=== PATIENT | female | born 1940 | race Caucasian/White ===

== ENCOUNTER 2017-02-04 06:07 | Inpatient (IN) ==
[2017-01-21 10:16] LABS: Basophils % 0.6 % (0.0-0.8); Eosinophils # 0.4 10*3/uL (0.0-0.87); Eosinophils % 5.2 % (0.00-10.9); Hematocrit 32.3 VOL% (35.7-47.0); Hemoglobin 10.7 GM/DL (12.0-16.0); Immature Granulocytes % 1.2 %; Immature Granulocytes Absolute 0.08 #; Lymphocytes # 2.5 10*3/uL (1.4-4.0); Lymphocytes % 36.4 % (21.3-54.2); Mean Corpuscular HGB Conc 33.1 GM/DL (32-36); Mean Corpuscular Hemoglobin 30 PG (27-34); Mean Corpuscular Volume 91.2 FL (87-102); Mean Platelet Volume 9.3 FL (9.6-12.0); Monocytes # 0.4 10*3/uL (0.11-0.8); Monocytes % 6.1 % (1.7-12.7); Neutrophils # 3.4 10*3/uL (1.4-7.4); Neutrophils % 50.5 % (38.7-73.9); Platelet Count 199 T/CUMM (130-400); Red Blood Count 3.54 MC/CUMM (3.8-5.5); Red Cell Distribution Width 14.1 % (9.3-17.3); White Blood Count 6.7 T/CUMM (4-12)
--- NOTE | 2017-01-21 10:27 | EKG Report ---
Stationary ECG Study [facility] Test Date: 01/21/2017 10:27:28 AM Pat Name: RAMESH MARQUES Department: Room: Gender: F [employer]: YOSELIN PETERS : 1940 Requested by: Nikolas Peters Order Number: [id number] Reading MD: JHONY ROBERTSON Intervals [place] Rate: 43 P: 62 PA: 213 QRS: 62 QRSD: 96 T: 61 QT: 524 QTc: 469 Interpretive Statements SINUS BRADYCARDIA WITH SINUS ARRHYTHMIA WITH PROLONGED PA INTERVAL INCOMPLETE RIGHT BUNDLE BRANCH BLOCK Electronically Signed On 01-24-17 18:23:27 CDT by JHONY ROBERTSON [email or web address]
--- NOTE | 2017-01-21 10:29 | XRay Report ---
XR chest 2V Indication: Preop evaluation Comparison: Chest x-ray dated June 06, 2014 Technique: Frontal and lateral views of the chest. Findings: Stable moderate cardiomegaly. Chronic change of the lungs without focal consolidation, pleural effusion, or pneumothorax. Visualized osseous and surrounding soft tissue structures appear grossly unchanged. Surgical clips within right upper quadrant of abdomen. IMPRESSION: Stable moderate cardiomegaly without nilesh pulmonary edema. PROCEDURE INTERPRETED AT [facility] DEPARTMENT OF RADIOLOGY Final Report Signed by: Dr Antoine Carbajal
[2017-01-21 10:50] LABS: Alanine Aminotransferase 16 U/L (13-56); Albumin 3.4 G/DL (3.4-5.0); Alkaline Phosphatase 133 U/L (45-117); Aspartate Amino Transferase 14 U/L (0-37); Bilirubin,Total < 0.39 MG/DL (0.2-1.0); Blood Urea Nitrogen 11 MG/DL (7-18); Calcium 7.9 MG/DL (8.5-10.1); Glucose 83 MG/DL (74-106); Osmolality,Calculated 280.1 MOS/KG (273-304); Potassium 4.1 MMOL/L (3.5-5.1); Sodium 142 MMOL/L (136-145); Total Protein 6.3 G/DL (6.4-8.3)
[~2017-02-04 06:07] MED LIST: SODIUM CHLORIDE 0.9% 100 ML IV ONE; cefOXitin 1,000 MG in SODIUM CHLORIDE 0.9% 100 ML IV ONE
[2017-02-04] MEDS ORDERED: BUPIVACAINE 0.25% 50 ML VIAL ONE (06:13)
[2017-02-04] MEDS ORDERED: LIDOCAINE 1%/EPI INJ 20 ML VIAL ONE (06:13)
[2017-02-04] MEDS ORDERED: SCOPOLAMINE 1.5 MG PATCH TRANSDERM ONE ×2 (06:56→06:58)
[2017-02-04] MEDS ORDERED: ALBUTEROL 1.25 MG/3 ML NEB RESP TX ONE (06:58)
[2017-02-04] MEDS ORDERED: LACTATED RINGERS 1,000 ML IV SCH (07:00)
[2017-02-04] MEDS ORDERED: LIDOCAINE 1% 5 ML VIAL ONE (07:14)
[2017-02-04] MEDS ORDERED: HYDROCORTISONE 100 MG VIAL ONE (07:14)
[2017-02-04] MEDS ORDERED: ONDANSETRON 4 MG/2 ML VIAL ONE (07:14)
[2017-02-04] MEDS ORDERED: GLYCOPYRROLATE 0.4 MG/2 ML VIAL ONE (07:14)
[2017-02-04] MEDS ORDERED: ALBUMIN 5% 12.5 GM/250 ML VIAL IV ONE ×2 (07:14→11:14)
[2017-02-04] MEDS ORDERED: ETOMIDATE 20 MG/10 ML VIAL IV ONE (07:14)
[2017-02-04] MEDS ORDERED: PROPOFOL 200 MG/20 ML VIAL IV ONE (07:14)
[2017-02-04] MEDS ORDERED: NEOSTIGMINE 10 MG/10 ML VIAL ONE (07:14)
[2017-02-04] MEDS ORDERED: ROCURONIUM 100 MG/10 ML VIAL IV ONE (07:14)
[2017-02-04] MEDS ORDERED: hydrALAZINE 20 MG/1 ML VIAL ONE (07:14)
--- NOTE | 2017-02-04 11:02 | Operative Note ---
Date of procedure: 02/04/17 Pre-op diagnosis: Colon cancer ascending colon Post-op diagnosis: same Procedure: Right hemicolectomy with stapled ileocolic anastomosis and extensive lysis of intra-abdominal adhesions (22) Findings and technique: After informed consent was obtained patient was brought the operating room and placed in supine position. After successful induction with general anesthesia the patient's abdomen was prepped and draped in usual sterile fashion. Local anesthesia was infiltrated in her old midline scar at about where I felt the umbilicus would have been located in this patient who no longer had an umbilicus from her multiple anterior abdominal wall scars. Sharp dissection was carried down to the midline fascia where multiple fascial benja were removed and the peritoneal cavity entered under direct vision. There was essentially no free peritoneal space at all. She had a frozen abdomen. This made it clear that a laparoscopic approach would not be feasible. I dissected in the mid abdomen and located transverse colon which was identifiable right at the level of the mid abdomen where I felt was was probably the site of her old umbilicus. This was densely adherent to what omentum she had remaining and also to multiple loops of small bowel. I traced the transverse colon to the right and this ascended up to the liver and went up over the anterior surface of the liver below the diaphragm. This was dissected off of the anterior aspect of the liver and beneath the right lobe of the liver with the patient had a previous cholecystectomy. I then dissected at the hepatic flexure inferiorly. At this point I could see where Maryjane ink had been injected by gastroenterology during her colonoscopy. Thickened portion of colon was noted adjacent to this however I saw no evidence of perforation or mass-effect or invasive cancer through the wall of the bowel. I dissected the right colon free from the retroperitoneum with an abdominal wall identifying the duodenum and also identifying the right ureter and tracing this out and avoiding the right ureter and gonadal vessels. As I dissected down to the cecum the cecum was down in the pelvis and I then identified the terminal ileum which was densely adherent and traveled down deep into the pelvis. Extensive dissection was carried out to free up terminal ileum that I divided near the cecum and also I dissected the colonic mesentery free back close to its origin at the right colic artery and also the middle colic vessels. All along the colonic mesentery were dense adhesions to adjacent small bowel. This was completely freed up and I placed clamps across the right colic and middle colic vessels preserving some of the middle colic branches at the mid transverse colon. I then used ICG injection with the pinpoint device to evaluate the perfusion of the bowel. The colon was then resected between GI stapling devices. I then looked again with a new injection of ICG and felt that the distal few centimeters of terminal ileum were not perfused enough. We also had a situation where without further dissection we would have it tension on her anastomosis. I then spent probably another hour dissecting small bowel 3 out of the pelvis to mobilize the terminal ileum so that I could do a tension-free anastomosis. 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 Great care was taken and I had to dissected millimeter the time taking great care not to injure bowel or cause bleeding from the mesentery. With the bowel freed up I then did a stapled ileocolic anastomosis and then close the openings in the ends of the bowel with a TA stapling device. The staple lines were reinforced with several interrupted silk Lembert sutures to make sure that we took any tension off the staple line especially at the end of the anastomosis. Staple lines were then coated with Tisseel tissue sealant. The mesenteric defect was closed interrupted 3-0 silk sutures. The abdomen was irrigated liberally and suctioned dry. No bleeding was noted. The midline fascia was then closed with a running #1 PDS suture and sponge and instrument counts were correct at the time of closure. Subcutaneous layer was irrigated and the skin closed with skin clips. She appeared to tolerate the procedure well and this was a much more difficult procedure than usual because of her essentially frozen abdomen. This greatly added to the complexity and difficulty the case and probably tripled the usual expected operative time. Anesthesia: ESTELAA, local Surgeon / Physician: Nikolas Meeks III. Estimated blood loss: other (75 mL) Specimens: other (Right colon) Condition: stable Disposition: PACU Results - Labs CBC & BMP: 01/21/17 10:10 01/21/17 10:10 Discharge Plan - Discharge Medications No Action Acetamin/Codeine 300-30 Tab [Tylenol/Codeine #3] 1 tablet PO Q8HR PRN PRN Reason: Pain Clorazepate Dipotassium 7.5 mg PO TID Atorvastatin [Lipitor] 40 mg PO DAILY Levothyroxine Tab [Synthroid Tab] 50 mcg PO DAILY Citalopram [CeleXA] 40 mg PO DAILY Bisoprolol/Hctz 2.5-6.25 [Ziac 2.5-6.25] 1 tablet PO DAILY Promethazine Tab [Phenergan Tab] 25 mg PO Q6H PRN PRN Reason: Nausea Omeprazole 20 mg PO DAILY Oxybutynin [Ditropan] 5 mg PO BID - Follow Up or Referral - Forms/Instructions
[2017-02-04 11:13] LABS: Apearance,Urine CLEAR (Clear); Bilirubin,Urine Negative (Negative); Blood, Urine Negative (Negative); Glucose,Urine (UA) Negative (Negative); Ketones,Urine Negative (Negative); Mucus,Urine Occasional /LPF (Occasional); Nitrite,Urine Negative (Negative); Protein,Urine Negative; RBC,Urine <1 /HPF (0-4); Urine Color Yellow (Yellow); Urine Specific Gravity 1.017 (1.001-1.035); Urine Urobilinogen < 2.0 EU/DL (0.2-1.0); WBC,Urine <1 /HPF (0-6)
[2017-02-04] MEDS ORDERED: MIDAZOLAM 2 MG/2 ML VIAL ONE (11:14)
[2017-02-04] MEDS ORDERED: DESFLURANE 1 UNIT/15 MINUTE INH ONE (11:14)
[2017-02-04] MEDS ORDERED: LACTATED RINGERS 1,000 ML IV ONE (11:15)
[2017-02-04] MEDS ORDERED: SUFentanil 50 MCG/ML AMP ONE (11:15)
[2017-02-04] MEDS ORDERED: ACETAMINOPHEN 1,000 MG/100 ML VIAL IV ONE (11:15)
[2017-02-04] MEDS ORDERED: ONDANSETRON 4 MG/2 ML VIAL IV PRN ×2 (11:51→11:56)
[2017-02-04] MEDS ORDERED: HYDROmorphone 2 MG/1 ML VIAL IV PRN ×2 (11:51→11:56)
[2017-02-04] MEDS: DEXTROSE 5% LACTATED RINGERS 1,000 ML IV SCH ×2 (12:37→22:55)
[2017-02-04 12:50] LABS: Hematocrit 31.8 VOL% (35.7-47.0); Hemoglobin 10.2 GM/DL (12.0-16.0)
--- NOTE | 2017-02-04 13:16 | Anesthesia Post-Op ---
Anesthesia Post OP - Post Ansesthetic Evaluation Patient seen in post op: Yes Resp: within normal limits CV: within normal limits Mental: within normal limits Temp: within normal limits Quds-Aq-Uiomlgsam: within normal limits Nausea and Vomiting: within normal limits Pain: within normal limits
[2017-02-04] MEDS: CLORAZEPATE 7.5 MG TABLET PO SCH ×2 (14:29→21:00)
[2017-02-04] MEDS: ONDANSETRON 4 MG/2 ML VIAL IV PRN (14:40)
[2017-02-04] MEDS: HYDROmorphone 2 MG/1 ML VIAL IV PRN ×3 (14:43→20:00)
--- NOTE | 2017-02-04 17:07 | Event Note ---
She has no complaints. Her pain is controlled and she is awake and alert. She appears to be stable at this time. I discussed the operative findings with the patient and her daughter.
[2017-02-04 19:19] LABS: Hematocrit 32.1 VOL% (35.7-47.0); Hemoglobin 10.6 GM/DL (12.0-16.0)
[2017-02-04] MEDS: ACETAMINOPHEN 325 MG TABLET PO PRN (20:59)
[2017-02-04] MEDS: OXYBUTYNIN 5 MG TABLET PO SCH (21:00)
[2017-02-05] MEDS: ACETAMINOPHEN 325 MG TABLET PO PRN (00:33)
[2017-02-05] MEDS: ONDANSETRON 4 MG/2 ML VIAL IV PRN ×4 (03:08→22:06)
[2017-02-05 03:23] LABS: Basophils % 0.2 % (0.0-0.8); Hematocrit 31.4 VOL% (35.7-47.0); Hemoglobin 10.2 GM/DL (12.0-16.0); Immature Granulocytes % 0.4 %; Immature Granulocytes Absolute 0.04 #; Lymphocytes # 1.8 10*3/uL (1.4-4.0); Lymphocytes % 16.5 % (21.3-54.2); Mean Corpuscular HGB Conc 32.5 GM/DL (32-36); Mean Corpuscular Hemoglobin 30 PG (27-34); Mean Corpuscular Volume 91.3 FL (87-102); Mean Platelet Volume 9.9 FL (9.6-12.0); Monocytes # 0.7 10*3/uL (0.11-0.8); Monocytes % 6.4 % (1.7-12.7); Neutrophils # 8.2 10*3/uL (1.4-7.4); Neutrophils % 76.5 % (38.7-73.9); Platelet Count 198 T/CUMM (130-400); Red Blood Count 3.44 MC/CUMM (3.8-5.5); Red Cell Distribution Width 14.1 % (9.3-17.3); White Blood Count 10.7 T/CUMM (4-12)
[2017-02-05 03:54] LABS: Calcium 7.9 MG/DL (8.5-10.1); Osmolality,Calculated 278.7 MOS/KG (273-304); Potassium 3.8 MMOL/L (3.5-5.1)
[2017-02-05] MEDS: HYDROmorphone 2 MG/1 ML VIAL IV PRN ×5 (04:06→22:09)
[2017-02-05] MEDS: DEXTROSE 5% LACTATED RINGERS 1,000 ML IV SCH ×2 (07:30→16:55)
--- NOTE | 2017-02-05 07:33 | Event Note ---
She feels well. She had low-grade fever which is probably from atelectasis. Her hematocrit is stable and her abdomen is benign. She has good urine output. We can get her Doyle out today and get her up ambulating more.
[2017-02-05] MEDS: OXYBUTYNIN 5 MG TABLET PO SCH ×2 (08:45→20:46)
[2017-02-05] MEDS: ENOXAPARIN 30 MG/0.3 ML SYRINGE SUBCUT SCH (08:45)
[2017-02-05] MEDS: CLORAZEPATE 7.5 MG TABLET PO SCH ×3 (08:45→20:46)
[2017-02-05] MEDS: LEVOTHYROXINE 50 MCG TABLET PO SCH (08:45)
[2017-02-05] MEDS: PANTOPRAZOLE 40 MG TABLET PO SCH (08:45)
[2017-02-05] MEDS: BISOPROLOL/HCTZ 2.5-6.25 MG TABLET PO SCH (11:15)
[2017-02-05] MEDS ORDERED: hydrOXYzine HCL 25 MG TABLET PO PRN (14:07)
[2017-02-05] MEDS ORDERED: ALBUTEROL 2.5 MG/3 ML NEB RESP TX PRN (14:07)
[2017-02-05] MEDS: CITALOPRAM 40 MG TABLET PO SCH (15:47)
[2017-02-05] MEDS: ATORVASTATIN 40 MG TABLET PO SCH (15:47)
[2017-02-05] MEDS: FLUTICASONE 50 MCG NASAL SPRAY 16 GM BOTTLE BOTH NARES SCH (15:48)
[2017-02-05] MEDS: TEMAZEPAM 15 MG CAPSULE PO PRN (20:46)
[2017-02-06] MEDS: DEXTROSE 5% LACTATED RINGERS 1,000 ML IV SCH ×2 (03:46→14:59)
[2017-02-06] MEDS: ACETAMINOPHEN 325 MG TABLET PO PRN ×2 (04:52→17:58)
[2017-02-06] MEDS: OXYBUTYNIN 5 MG TABLET PO SCH ×2 (08:13→20:53)
[2017-02-06] MEDS: LEVOTHYROXINE 50 MCG TABLET PO SCH (08:13)
[2017-02-06] MEDS: PANTOPRAZOLE 40 MG TABLET PO SCH (08:13)
[2017-02-06] MEDS: CITALOPRAM 40 MG TABLET PO SCH (08:13)
[2017-02-06] MEDS: CLORAZEPATE 7.5 MG TABLET PO SCH ×3 (08:13→20:53)
[2017-02-06] MEDS: ATORVASTATIN 40 MG TABLET PO SCH (08:13)
[2017-02-06] MEDS: BISOPROLOL/HCTZ 2.5-6.25 MG TABLET PO SCH (08:13)
[2017-02-06] MEDS: FLUTICASONE 50 MCG NASAL SPRAY 16 GM BOTTLE BOTH NARES SCH (08:16)
[2017-02-06] MEDS: ENOXAPARIN 30 MG/0.3 ML SYRINGE SUBCUT SCH (08:16)
--- NOTE | 2017-02-06 10:33 | Event Note ---
She has some low-grade temperature which I suspect is atelectasis. Her abdomen appears benign. Her vital signs are stable. She is awake and alert. We will get her Doyle catheter out and give her up more. She has not had return of bowel function. I am going to check follow-up lab work.
[2017-02-06 11:14] LABS: Basophils % 0.3 % (0.0-0.8); Eosinophils % 0.2 % (0.00-10.9); Hemoglobin 9.8 GM/DL (12.0-16.0); Immature Granulocytes % 0.7 %; Immature Granulocytes Absolute 0.08 #; Lymphocytes # 1.4 10*3/uL (1.4-4.0); Lymphocytes % 12.3 % (21.3-54.2); Mean Corpuscular HGB Conc 32.7 GM/DL (32-36); Mean Corpuscular Hemoglobin 30 PG (27-34); Mean Corpuscular Volume 90.6 FL (87-102); Monocytes # 0.7 10*3/uL (0.11-0.8); Monocytes % 6.2 % (1.7-12.7); Neutrophils % 80.3 % (38.7-73.9); Platelet Count 199 T/CUMM (130-400); Red Blood Count 3.31 MC/CUMM (3.8-5.5); Red Cell Distribution Width 13.5 % (9.3-17.3); White Blood Count 11.3 T/CUMM (4-12)
[2017-02-06 11:42] LABS: Calcium 8.5 MG/DL (8.5-10.1); Magnesium 1.8 MG/DL (1.8-2.4); Osmolality,Calculated 274.7 MOS/KG (273-304); Potassium 3.4 MMOL/L (3.5-5.1)
[2017-02-06] MEDS: ONDANSETRON 4 MG/2 ML VIAL IV PRN (13:24)
[2017-02-06] MEDS: HYDROmorphone 2 MG/1 ML VIAL IV PRN (13:24)
[2017-02-06] MEDS: TEMAZEPAM 15 MG CAPSULE PO PRN (20:53)
[2017-02-07] MEDS: DEXTROSE 5% LACTATED RINGERS 1,000 ML IV SCH ×3 (00:25→22:49)
[2017-02-07] MEDS: ONDANSETRON 4 MG/2 ML VIAL IV PRN ×3 (00:26→21:47)
[2017-02-07] MEDS: HYDROmorphone 2 MG/1 ML VIAL IV PRN ×3 (00:33→08:56)
[2017-02-07] MEDS: POTASSIUM CHLORIDE RIDER 10 MEQ in PREMIX 1 EACH IV PRN ×3 (04:13→06:13)
[2017-02-07] MEDS: CLORAZEPATE 7.5 MG TABLET PO SCH ×3 (08:20→21:48)
[2017-02-07] MEDS: LEVOTHYROXINE 50 MCG TABLET PO SCH (08:20)
[2017-02-07] MEDS: ATORVASTATIN 40 MG TABLET PO SCH (08:21)
[2017-02-07] MEDS: CITALOPRAM 40 MG TABLET PO SCH (08:21)
[2017-02-07] MEDS: BISOPROLOL/HCTZ 2.5-6.25 MG TABLET PO SCH (08:21)
[2017-02-07] MEDS: PANTOPRAZOLE 40 MG TABLET PO SCH (08:23)
[2017-02-07] MEDS: OXYBUTYNIN 5 MG TABLET PO SCH ×2 (08:25→21:48)
[2017-02-07] MEDS: ENOXAPARIN 30 MG/0.3 ML SYRINGE SUBCUT SCH (08:27)
[2017-02-07] MEDS: FLUTICASONE 50 MCG NASAL SPRAY 16 GM BOTTLE BOTH NARES SCH (08:43)
[2017-02-07] MEDS ORDERED: MINERAL OIL ENEMA 133 ML BOTTLE RECTAL ONE (09:27)
[2017-02-07] MEDS ORDERED: MAGNESIUM HYDROXIDE SUSP 30 ML UDCUP PO ONE (09:27)
--- NOTE | 2017-02-07 09:27 | Event Note ---
She feels well. She has minimal abdominal pain. She is not having bloating. She has not had a bowel movement or flatus. I anticipate a prolonged ileus in her case because of her previous chronic constipation. She had a large stool filled colon at the time of surgery.
[2017-02-07] MEDS: ACETAMINOPHEN 325 MG TABLET PO PRN (15:30)
[2017-02-07] MEDS: TEMAZEPAM 15 MG CAPSULE PO PRN (21:48)
[2017-02-08] MEDS: ONDANSETRON 4 MG/2 ML VIAL IV PRN ×2 (06:30→13:30)
--- NOTE | 2017-02-08 07:17 | Event Note ---
She had nausea and vomiting last night and also has had increased confusion. She has had small bowel movement. She is awake and alert this morning with stable vital signs. She did have some low-grade temperature. We will check a urinalysis. We will recheck lab work. She continue his nausea and vomiting we will place a nasogastric tube. Her abdomen exam is not impressive. Her wound looks good with no signs of infection. She probably has some prolonged postoperative ileus.
[2017-02-08 07:38] LABS: Basophils % 0.5 % (0.0-0.8); Eosinophils # 0.1 10*3/uL (0.0-0.87); Eosinophils % 1.2 % (0.00-10.9); Hematocrit 27.8 VOL% (35.7-47.0); Hemoglobin 9.3 GM/DL (12.0-16.0); Immature Granulocytes % 1.3 %; Lymphocytes # 1.4 10*3/uL (1.4-4.0); Lymphocytes % 18.5 % (21.3-54.2); Mean Corpuscular HGB Conc 33.5 GM/DL (32-36); Mean Corpuscular Hemoglobin 30 PG (27-34); Mean Corpuscular Volume 89.4 FL (87-102); Mean Platelet Volume 9.5 FL (9.6-12.0); Monocytes # 0.5 10*3/uL (0.11-0.8); Monocytes % 6.8 % (1.7-12.7); Neutrophils # 5.5 10*3/uL (1.4-7.4); Neutrophils % 71.7 % (38.7-73.9); Platelet Count 238 T/CUMM (130-400); Red Blood Count 3.11 MC/CUMM (3.8-5.5); Red Cell Distribution Width 13.2 % (9.3-17.3); White Blood Count 7.6 T/CUMM (4-12)
[2017-02-08] MEDS: ATORVASTATIN 40 MG TABLET PO SCH (08:05)
[2017-02-08] MEDS: OXYBUTYNIN 5 MG TABLET PO SCH ×2 (08:05→20:49)
[2017-02-08] MEDS: CLORAZEPATE 7.5 MG TABLET PO SCH ×3 (08:05→20:48)
[2017-02-08] MEDS: PANTOPRAZOLE 40 MG TABLET PO SCH (08:05)
[2017-02-08] MEDS: BISOPROLOL/HCTZ 2.5-6.25 MG TABLET PO SCH (08:05)
[2017-02-08] MEDS: CITALOPRAM 40 MG TABLET PO SCH (08:05)
[2017-02-08] MEDS: LEVOTHYROXINE 50 MCG TABLET PO SCH (08:05)
[2017-02-08] MEDS: FLUTICASONE 50 MCG NASAL SPRAY 16 GM BOTTLE BOTH NARES SCH (08:06)
[2017-02-08] MEDS: ENOXAPARIN 40 MG/0.4 ML SYRINGE SUBCUT SCH (08:08)
[2017-02-08 08:14] LABS: Calcium 8.2 MG/DL (8.5-10.1); Magnesium 2.4 MG/DL (1.8-2.4); Osmolality,Calculated 273.7 MOS/KG (273-304); Potassium 3.8 MMOL/L (3.5-5.1)
[2017-02-08] MEDS: HYDROmorphone 2 MG/1 ML VIAL IV PRN (09:32)
[2017-02-08 11:12] LABS: Apearance,Urine CLEAR (Clear); Bilirubin,Urine Negative (Negative); Blood, Urine Negative (Negative); Glucose,Urine (UA) Negative (Negative); Ketones,Urine Negative (Negative); Mucus,Urine Occasional /LPF (Occasional); Nitrite,Urine Negative (Negative); Protein,Urine Negative; Urine Color Straw (Yellow); Urine Specific Gravity 1.005 (1.001-1.035); Urine Urobilinogen < 2.0 EU/DL (0.2-1.0); WBC,Urine <1 /HPF (0-6)
[2017-02-08] MEDS ORDERED: ROPIVACAINE 0.5% 30 ML VIAL ONE (13:33)
[2017-02-08] MEDS: DEXTROSE 5% LACTATED RINGERS 1,000 ML IV SCH ×2 (13:38→23:38)
--- NOTE | 2017-02-08 17:16 | Pathology Report from [facility] ---
[facility] [place] : [id number] PATIENT NAME : Namrata Westbrook ORDERING DR : PERLA PETERS III, MD CLINICAL HX: Right colon mass - invasive cancer POST-OP DX: Same SPECIMEN INFO: #1 Right colon #2 Additional ileum GROSS DESCRIPTION: #1 Received fresh labeled with the patients name NAMRATA WESTBROOK and is a right colon measuring 20.0 x 3.5 cm. The terminal ileum measures 2.0 x 1.8 cm. An appendix is not identified. Opening the colon reveals an ulcerating tumor mass measuring 2.0 x 2.2 cm which is situated 7.0 cm from the distal margin, 12.0 cm from the proximal margin. A second ulceration is present measuring 1.0 x 0.6 cm which is situated 4.0 cm distal to the first mass and grossly comes to within 4.3 cm from the distal margin, 18.5 cm from the proximal margin. The larger mass grossly invades the bowel wall, coming to within 3.5 cm of the mesenteric margin. There is also a sessile polypoid mass measuring 2.0 x 1.2 cm which is situated between the two ulcerating masses and grossly comes to within 5.0 cm of the distal margin. Lymph nodes will be submitted following fixation. Sections submitted: 1A proximal margin, 1B distal margin, 1C mesenteric margin, 1D and 1E first larger mass, 1F second smaller ulceration, 1G sessile polypoid mass, H-I lymph nodes.# 2 Received in formalin labeled with the patients name NAMRATA WESTBROOK and #2 consists of a segment of ileum measuring 4.5 x 2.2 cm. No abnormalities grossly appreciated. The surgical margins are submitted in cassettes 2A and 2B. DIAGNOSIS FOR NAMRATA WESTBROOK: #1 COLON, PARTIAL [ILEO]COLECTOMY (Intact, 22.0 x 3.5 cm): TYPE: Invasive adenocarcinoma ( two masses). TUMOR SITE: Ascending colon. TUMOR SIZE: 2.2 x 2.0 cm; adjacent smaller mass/polyp 3 mm. MACROSCOPIC TUMOR PERFORATION: Present. HISTOLOGIC GRADE: Well differentiated. TUMOR EXTENSION: Invade into but not through the muscularic propria (both masses). MARGINS, PROXIMAL: Uninvolved by carcinoma, distance = 12.0 cm. DISTAL: Uninvolved by carcinoma, distance = 4.3 cm. MESENTERIC: Uninvolved by carcinoma, distance = 3.5 cm. LYMPHOVASCULAR INVASION: Not identified. PERINEURAL INVASION: Not identified. TUMOR DEPOSITS: Not identified. TUMOR BUDDING: Low score (0-4). LYMPH NODES: NUMBER EXAMINED: 15; NUMBER INVOLVED: 0 (0/15). ADDITIONAL FINDINGS: Serrated adenoma. AJCC PATHOLOGIC STAGE I (pT2pN0).#2 ADDITIONAL ILEUM: Unremarkable. COLLECTED DATE: 02/04/2017 [facility] REPORT DATE: 02/08/2017 ELECTRONICALLY SIGNED BY: Dave Laboy M.D. 02/08/2017 - 12:47:42 YAMILE
[2017-02-08] MEDS: TEMAZEPAM 15 MG CAPSULE PO PRN (20:48)
[2017-02-09] MEDS: HYDROmorphone 2 MG/1 ML VIAL IV PRN ×3 (01:39→23:50)
[2017-02-09] MEDS: ONDANSETRON 4 MG/2 ML VIAL IV PRN ×2 (06:20→13:09)
[2017-02-09] MEDS ORDERED: MAGNESIUM HYDROXIDE SUSP 30 ML UDCUP PO ONE (08:54)
[2017-02-09] MEDS: CITALOPRAM 40 MG TABLET PO SCH (09:49)
[2017-02-09] MEDS: PANTOPRAZOLE 40 MG TABLET PO SCH (09:49)
[2017-02-09] MEDS: CLORAZEPATE 7.5 MG TABLET PO SCH ×3 (09:49→21:07)
[2017-02-09] MEDS: OXYBUTYNIN 5 MG TABLET PO SCH ×2 (09:49→21:07)
[2017-02-09] MEDS: ENOXAPARIN 40 MG/0.4 ML SYRINGE SUBCUT SCH (09:49)
[2017-02-09] MEDS: ATORVASTATIN 40 MG TABLET PO SCH (09:49)
[2017-02-09] MEDS: LEVOTHYROXINE 50 MCG TABLET PO SCH (09:49)
[2017-02-09] MEDS: BISOPROLOL/HCTZ 2.5-6.25 MG TABLET PO SCH (09:51)
[2017-02-09] MEDS: FLUTICASONE 50 MCG NASAL SPRAY 16 GM BOTTLE BOTH NARES SCH (09:51)
[2017-02-09] MEDS: DEXTROSE 5% LACTATED RINGERS 1,000 ML IV SCH ×2 (10:55→20:55)
--- NOTE | 2017-02-09 12:03 | Event Note ---
She feels better. She is passing some flatus. She is afebrile with stable vital signs and her abdomen appears benign. We will advance her diet to a soft diet today.
[2017-02-09] MEDS: TEMAZEPAM 15 MG CAPSULE PO PRN (21:07)
[2017-02-10] MEDS: HYDROmorphone 2 MG/1 ML VIAL IV PRN ×3 (04:45→20:25)
[2017-02-10] MEDS: ONDANSETRON 4 MG/2 ML VIAL IV PRN ×2 (04:47→20:25)
[2017-02-10] MEDS ORDERED: MINERAL OIL ENEMA 133 ML BOTTLE RECTAL ONE (09:00)
[2017-02-10] MEDS: OXYBUTYNIN 5 MG TABLET PO SCH ×2 (09:50→20:39)
[2017-02-10] MEDS: CITALOPRAM 40 MG TABLET PO SCH (09:51)
[2017-02-10] MEDS: CLORAZEPATE 7.5 MG TABLET PO SCH ×3 (09:51→20:26)
[2017-02-10] MEDS: ATORVASTATIN 40 MG TABLET PO SCH (09:51)
[2017-02-10] MEDS: ACETAMINOPHEN 325 MG TABLET PO PRN ×2 (09:51→20:25)
[2017-02-10] MEDS: LEVOTHYROXINE 50 MCG TABLET PO SCH (09:51)
[2017-02-10] MEDS: PANTOPRAZOLE 40 MG TABLET PO SCH (09:51)
[2017-02-10] MEDS: BISOPROLOL/HCTZ 2.5-6.25 MG TABLET PO SCH (09:51)
[2017-02-10] MEDS: FLUTICASONE 50 MCG NASAL SPRAY 16 GM BOTTLE BOTH NARES SCH (10:16)
[2017-02-10] MEDS: ENOXAPARIN 40 MG/0.4 ML SYRINGE SUBCUT SCH (10:16)
--- NOTE | 2017-02-10 14:30 | Event Note ---
She feels better overall. She is frustrated that she has not had a bowel movement. She had some low-grade temperature. Her vital signs are stable. Her abdomen appears benign. This note is a late entry as I actually saw her this morning. We have ordered some enemas. I am reluctant to give her much from above with her anastomosis. Patient gives a long history of chronic constipation and impactions in the past. Her colon was very large and redundant and full of thick pasty stool throughout. This may make management more difficult as far as getting a return of bowel function.
[2017-02-10] MEDS: DEXTROSE 5% LACTATED RINGERS 1,000 ML IV SCH ×2 (20:46→20:47)
[2017-02-11] MEDS: HYDROmorphone 2 MG/1 ML VIAL IV PRN (04:52)
[2017-02-11] MEDS: ONDANSETRON 4 MG/2 ML VIAL IV PRN ×2 (04:52→21:50)
[2017-02-11] MEDS: DEXTROSE 5% LACTATED RINGERS 1,000 ML IV SCH ×3 (06:09→17:47)
[2017-02-11] MEDS: OXYBUTYNIN 5 MG TABLET PO SCH ×2 (08:50→21:50)
[2017-02-11] MEDS: CITALOPRAM 40 MG TABLET PO SCH (08:50)
[2017-02-11] MEDS: PANTOPRAZOLE 40 MG TABLET PO SCH (08:50)
[2017-02-11] MEDS: LEVOTHYROXINE 50 MCG TABLET PO SCH (08:50)
[2017-02-11] MEDS: BISOPROLOL/HCTZ 2.5-6.25 MG TABLET PO SCH (08:50)
[2017-02-11] MEDS: CLORAZEPATE 7.5 MG TABLET PO SCH ×3 (08:50→21:50)
[2017-02-11] MEDS: FLUTICASONE 50 MCG NASAL SPRAY 16 GM BOTTLE BOTH NARES SCH (08:51)
[2017-02-11] MEDS: ENOXAPARIN 40 MG/0.4 ML SYRINGE SUBCUT SCH (08:51)
[2017-02-11] MEDS: ATORVASTATIN 40 MG TABLET PO SCH (08:51)
--- NOTE | 2017-02-11 10:10 | Event Note ---
She does not feel well. She has not had an appetite. She has not had nausea or vomiting and has passed some flatus but has not had a bowel movement. Her abdomen is nontender and does not really seem distended. It is quiet. She had low-grade fever last night but has normal vital signs. She appears to have persistent postoperative ileus versus obstruction from obstipation in her colon. I have been reluctant to give her much from above. We have tried some milk enemas. Intraoperatively she had a large redundant fluid-filled colon. I will recheck lab and urinalysis and chest x-ray. Nutrition may become an issue in the next few days and we may need to look at TPN.
--- NOTE | 2017-02-11 10:11 | Event Note ---
I was not notified of her fever last night and only saw this this morning on rounds. She is afebrile this morning and not ill-appearing. We will check a chest x-ray as well.
[2017-02-11 11:07] LABS: Basophils % 0.3 % (0.0-0.8); Eosinophils # 0.1 10*3/uL (0.0-0.87); Eosinophils % 0.5 % (0.00-10.9); Hematocrit 30.4 VOL% (35.7-47.0); Hemoglobin 9.8 GM/DL (12.0-16.0); Immature Granulocytes % 1.2 %; Immature Granulocytes Absolute 0.13 #; Lymphocytes % 8.9 % (21.3-54.2); Mean Corpuscular HGB Conc 32.2 GM/DL (32-36); Mean Corpuscular Hemoglobin 29 PG (27-34); Mean Platelet Volume 9.7 FL (9.6-12.0); Monocytes # 0.5 10*3/uL (0.11-0.8); Monocytes % 4.7 % (1.7-12.7); Neutrophils % 84.4 % (38.7-73.9); Platelet Count 276 T/CUMM (130-400); Red Blood Count 3.34 MC/CUMM (3.8-5.5); Red Cell Distribution Width 13.3 % (9.3-17.3); White Blood Count 10.6 T/CUMM (4-12)
[2017-02-11 11:39] LABS: Calcium 8.2 MG/DL (8.5-10.1); Magnesium 2.2 MG/DL (1.8-2.4); Potassium 3.8 MMOL/L (3.5-5.1)
--- NOTE | 2017-02-11 13:14 | XRay Report ---
XR chest 2V Indication: Postop fever. Chest one view: Comparison 01/21/2017. Cardiomegaly is stable. Mediastinal contour remains otherwise unremarkable. Increased diffuse peribronchial thickening is now present, without focal infiltrate. Pleural spaces are clear. Impression: Airways disease such as bronchitis or viral syndrome. Continued cardiomegaly. Given history of postop fever, the appearance of airways disease could indicate mild fluid overload as well. PROCEDURE INTERPRETED AT [facility] DEPARTMENT OF RADIOLOGY Final Report Signed by: Mason Barrett M.D.
[2017-02-11 18:00] LABS: Apearance,Urine CLEAR (Clear); Bilirubin,Urine Negative (Negative); Blood, Urine Negative (Negative); Glucose,Urine (UA) Negative (Negative); Ketones,Urine Negative (Negative); Nitrite,Urine Negative (Negative); Protein,Urine Negative; RBC,Urine <1 /HPF (0-4); Squamous Epithelial Cell,Urine Occasional /HPF (0-10); Urine Color Yellow (Yellow)
[2017-02-11] MEDS: ACETAMINOPHEN 325 MG TABLET PO PRN (19:59)
[2017-02-12] MEDS: ACETAMINOPHEN 325 MG TABLET PO PRN ×3 (01:25→20:31)
[2017-02-12] MEDS: DEXTROSE 5% LACTATED RINGERS 1,000 ML IV SCH ×2 (05:42→18:47)
[2017-02-12 07:36] LABS: Basophils % 0.1 % (0.0-0.8); Hematocrit 26.5 VOL% (35.7-47.0); Hemoglobin 8.8 GM/DL (12.0-16.0); Immature Granulocytes % 0.4 %; Immature Granulocytes Absolute 0.05 #; Lymphocytes # 0.9 10*3/uL (1.4-4.0); Lymphocytes % 7.4 % (21.3-54.2); Mean Corpuscular HGB Conc 33.2 GM/DL (32-36); Mean Corpuscular Hemoglobin 30 PG (27-34); Mean Corpuscular Volume 89.5 FL (87-102); Mean Platelet Volume 9.9 FL (9.6-12.0); Monocytes # 0.6 10*3/uL (0.11-0.8); Monocytes % 4.7 % (1.7-12.7); Neutrophils # 10.7 10*3/uL (1.4-7.4); Neutrophils % 87.4 % (38.7-73.9); Platelet Count 271 T/CUMM (130-400); Red Blood Count 2.96 MC/CUMM (3.8-5.5); Red Cell Distribution Width 13.4 % (9.3-17.3); White Blood Count 12.2 T/CUMM (4-12)
[2017-02-12 07:57] LABS: Band Neutrophils 13 % (0-10); Hypochromasia 1+; Lymphocytes 12 % (20-55); Microcytosis 1+; Ovalocytes Slight; Segmented Neutrophils 74 % (50-85); Total Cells Counted 100
[2017-02-12 07:58] LABS: Platelet Estimate Normal
--- NOTE | 2017-02-12 08:26 | Event Note ---
She is now having bowel movements. She has once again spiked a fever. Her urine is clear. Her chest x-ray does not show an obvious pneumonia. White blood cell count went up some yesterday and I am rechecking this today. I ordered a CT scan of her abdomen and pelvis this morning and this shows a large collection in her right abdomen. It is not been read by radiology. I think this should be amenable to percutaneous drainage. She still has a large stool filled colon.
[2017-02-12] MEDS: cefOXitin 1,000 MG in SODIUM CHLORIDE 0.9% 100 ML IV SCH ×3 (08:57→22:04)
--- NOTE | 2017-02-12 09:01 | IR History and Physical Update ---
IR Pre-Procedure - History and Physical H&P was reviewed, the patient examined and there: are no changes in the patients condition since last H&P was completed. Reason for procedure:: 76-year-old female status post right hemicolectomy, now with a right intra- abdominal abscess. Requires drainage. - Dictation Physical: refer to H&P completed by admitting physician - Physical Exam Vital Signs: Last Vital Signs Temp 97.8 F 02/12/17 07:55 Pulse 62 02/12/17 07:55 Resp 20 02/12/17 07:55 BP 119/54 02/12/17 07:55 Pulse Ox 94 L 02/12/17 07:55 - Sedation IR anesthesia plan for sedation: none ASA Class: III - Risks Risks: Procedures explained. Risks discussed include, but not limited to, the following:[Pain, bleeding] All questions answered. The following alternatives were discussed:[Surgery] Risks and benefits discussed with: other (Daughter) Consent obtained from: other (Daughter) Assessment and Plan - Time spent with patient Time spent with patient: Less than 30 minutes
[2017-02-12] MEDS: ENOXAPARIN 40 MG/0.4 ML SYRINGE SUBCUT SCH (09:47)
--- NOTE | 2017-02-12 10:03 | CT Report ---
CT abdomen pelvis w con Indication: Postop fever. CT ABDOMEN AND PELVIS WITH CONTRAST DLP: 911 mGy*cm. One or more of the following dose reduction techniques was used: Automated exposure control, adjustment of the mA and/or kV according the patient size, or use of iterative reconstruction techniques. Comparison: 01/18/2017 Technique: Axial CT images of the abdomen and pelvis were obtained with IV contrast; Omnipaque 350, 100 cc. Oral contrast was not administered. Abdomen: There is large abscess in the right abdomen measuring 160 x 75 mm axial dimensions. The adjacent colon is fluid-filled with scattered air-fluid levels present. Surgical anastomosis in the right lower quadrant is present, intimate with the lower margin of the abscess collection. Trace amount of ascites is present adjacent to the liver. The liver and spleen are unremarkable. Pancreas, adrenal glands and right kidney remain unremarkable. Left renal cyst is unchanged. Are size remains enlarged. Tiny left pleural effusion is present and there is moderate to severe bibasilar atelectasis. No small bowel dilatation. Calcified atheromatous disease of the aortoiliac system is present without aneurysm. Pelvis: Fluid-filled loops of small bowel are present in the pelvis with multiple air-fluid levels. Uterus is absent. Prior rectal anastomosis demonstrated. Urinary bladder is modestly distended. Impression: Since 01/18/2017, right abdominal abscess is now present following right hemicolectomy. Ileus noted as well. No obstruction. Trace amount of reactive ascites adjacent to the liver. PROCEDURE INTERPRETED AT [facility] DEPARTMENT OF RADIOLOGY Final Report Signed by: Mason Barrett M.D.
[2017-02-12] MEDS: OXYBUTYNIN 5 MG TABLET PO SCH ×2 (10:12→20:34)
[2017-02-12] MEDS: LEVOTHYROXINE 50 MCG TABLET PO SCH (13:21)
[2017-02-12] MEDS: CITALOPRAM 40 MG TABLET PO SCH (13:21)
[2017-02-12] MEDS: FLUTICASONE 50 MCG NASAL SPRAY 16 GM BOTTLE BOTH NARES SCH (13:21)
[2017-02-12] MEDS: ATORVASTATIN 40 MG TABLET PO SCH (13:21)
[2017-02-12] MEDS: PANTOPRAZOLE 40 MG TABLET PO SCH (13:21)
[2017-02-12] MEDS: BISOPROLOL/HCTZ 2.5-6.25 MG TABLET PO SCH (13:21)
--- NOTE | 2017-02-12 14:00 | Post Interventional Procedure ---
Pre-op diagnosis: Right abdominal abscess s/p right hemicolectomy Post-op diagnosis: same Procedure: CT guided placement 10-Fr drain Radiologist: Mason Barrett Anesthesia: local Specimens: other (5 cc brown fluid culture and GS) Estimated blood loss: none Complications: none Condition: stable Assessment and Plan - Time spent with patient Time spent with patient: Less than 30 minutes
--- NOTE | 2017-02-12 15:27 | CT Report ---
CT abscess drainage peritoneal Indication: Right-sided abdominal abscess. CT guided peritoneal abscess drain placement Description: A formal timeout was performed. With the patient supine on the CT table, beadworker imaging of the abdomen was obtained. The right abdominal abscess was identified. The right abdominal skin was prepped and draped in sterile fashion. Under CT guidance, using trocar technique, a 10 Chilean pigtail drainage catheter was advanced directly into the abscess pocket. After removing the trocar, the pigtail was formed. A sample of 5 cc brown fluid was aspirated for culture and Gram stain. The catheter was anchored with a Percu-Stay device and connected to a suction bag. Patient tolerated the procedure well. Impression: Uncomplicated placement of 10 Chilean pigtail drain catheter right abdominal abscess. PROCEDURE INTERPRETED AT [facility] DEPARTMENT OF RADIOLOGY Final Report Signed by: Mason Barrett M.D.
[2017-02-12] MEDS: TEMAZEPAM 15 MG CAPSULE PO PRN (20:30)
[2017-02-13] MEDS: cefOXitin 1,000 MG in SODIUM CHLORIDE 0.9% 100 ML IV SCH ×4 (04:14→21:00)
[2017-02-13] MEDS: DEXTROSE 5% LACTATED RINGERS 1,000 ML IV SCH ×3 (04:14→18:48)
[2017-02-13 06:30] LABS: Calcium 7.9 MG/DL (8.5-10.1); Magnesium 2.2 MG/DL (1.8-2.4); Osmolality,Calculated 275.7 MOS/KG (273-304); Potassium 3.3 MMOL/L (3.5-5.1)
[2017-02-13 08:50] LABS: Basophils % 0.2 % (0.0-0.8); Eosinophils % 0.5 % (0.00-10.9); Hematocrit 26.3 VOL% (35.7-47.0); Hemoglobin 8.3 GM/DL (12.0-16.0); Immature Granulocytes % 0.5 %; Immature Granulocytes Absolute 0.04 #; Lymphocytes % 12.2 % (21.3-54.2); Mean Corpuscular HGB Conc 31.6 GM/DL (32-36); Mean Corpuscular Hemoglobin 29 PG (27-34); Mean Corpuscular Volume 91.3 FL (87-102); Mean Platelet Volume 10.3 FL (9.6-12.0); Monocytes # 0.4 10*3/uL (0.11-0.8); Monocytes % 5.2 % (1.7-12.7); Neutrophils # 6.9 10*3/uL (1.4-7.4); Neutrophils % 81.4 % (38.7-73.9); Platelet Count 274 T/CUMM (130-400); Red Blood Count 2.88 MC/CUMM (3.8-5.5); Red Cell Distribution Width 13.5 % (9.3-17.3); White Blood Count 8.5 T/CUMM (4-12)
[2017-02-13] MEDS: CITALOPRAM 40 MG TABLET PO SCH (08:51)
[2017-02-13] MEDS: LEVOTHYROXINE 50 MCG TABLET PO SCH (08:51)
[2017-02-13] MEDS: OXYBUTYNIN 5 MG TABLET PO SCH ×2 (08:52→20:59)
[2017-02-13] MEDS: PANTOPRAZOLE 40 MG TABLET PO SCH (08:52)
[2017-02-13] MEDS: ATORVASTATIN 40 MG TABLET PO SCH (08:52)
[2017-02-13] MEDS: BISOPROLOL/HCTZ 2.5-6.25 MG TABLET PO SCH (08:52)
[2017-02-13] MEDS: ENOXAPARIN 40 MG/0.4 ML SYRINGE SUBCUT SCH (08:53)
[2017-02-13] MEDS: FLUTICASONE 50 MCG NASAL SPRAY 16 GM BOTTLE BOTH NARES SCH (08:54)
[2017-02-13] MEDS: ACETAMINOPHEN 325 MG TABLET PO PRN ×2 (10:45→16:54)
[2017-02-13 11:40] LABS: Hypochromasia 2+; Microcytosis 2+
[2017-02-13] MEDS: POTASSIUM CHLORIDE RIDER 10 MEQ in PREMIX 1 EACH IV PRN ×4 (16:51→23:30)
[2017-02-13] MEDS: ONDANSETRON 4 MG/2 ML VIAL IV PRN (17:48)
--- NOTE | 2017-02-13 18:06 | Event Note ---
General Surgery Progress Note Chief complaint This patient is a 76-year-old woman who was admitted after laparoscopic converted to open right colectomy on 02/04/2017 for colon cancer complicated by a contained anastomotic leak that was treated with percutaneous drainage on 02/12 Interval history The patient has intermittent fever spikes up to 101.9 last night and 101.3 today. He does not appear septic at all. She feels better today. She is tolerating about 40-50% of her meals. She has not gotten up and walked yet but she would like to try to do that today. Her white blood cell count is normalized. She is not tachycardic. Physical exam The patient is afebrile currently but she does have intermittent fever spikes. Her blood pressure is normal. She is not tachycardic. Chest is clear Heart is regular with no murmurs Abdominal exam reveals no significant tenderness with a clean midline incision. The percutaneous drain in the right upper quadrant has enteric contents coming out of the. It had about 350 cc yesterday and there is probably an additional 200 cc in the bag today. Labs The patient's white blood cell count is normal. The remainder of her labs were reviewed. Her potassium is low but she is on her potassium repletion protocol. Her creatinine did bump up slightly today to 1.2. Imaging CT scan from yesterday and other images all reviewed Assessment and plan Continue antibiotics and percutaneous accordion drain Continue diet as tolerated Check diarrhea for C. difficile Increase activity and walking in the hallway Wean IV fluid
[2017-02-13] MEDS: TEMAZEPAM 15 MG CAPSULE PO PRN (20:59)
[2017-02-14] MEDS: ACETAMINOPHEN 325 MG TABLET PO PRN ×3 (02:58→20:40)
[2017-02-14] MEDS: cefOXitin 1,000 MG in SODIUM CHLORIDE 0.9% 100 ML IV SCH ×4 (03:41→19:48)
[2017-02-14 04:49] LABS: Basophils % 0.2 % (0.0-0.8); Eosinophils % 0.7 % (0.00-10.9); Hematocrit 25.2 VOL% (35.7-47.0); Hemoglobin 7.9 GM/DL (12.0-16.0); Immature Granulocytes % 0.3 %; Immature Granulocytes Absolute 0.02 #; Lymphocytes # 0.6 10*3/uL (1.4-4.0); Lymphocytes % 10.9 % (21.3-54.2); Mean Corpuscular HGB Conc 31.3 GM/DL (32-36); Mean Corpuscular Hemoglobin 29 PG (27-34); Mean Corpuscular Volume 91.3 FL (87-102); Mean Platelet Volume 10.5 FL (9.6-12.0); Monocytes # 0.6 10*3/uL (0.11-0.8); Monocytes % 10.2 % (1.7-12.7); Neutrophils # 4.6 10*3/uL (1.4-7.4); Neutrophils % 77.7 % (38.7-73.9); Platelet Count 293 T/CUMM (130-400); Red Blood Count 2.76 MC/CUMM (3.8-5.5); Red Cell Distribution Width 13.5 % (9.3-17.3); White Blood Count 5.9 T/CUMM (4-12)
[2017-02-14 05:19] LABS: Calcium 7.8 MG/DL (8.5-10.1); Osmolality,Calculated 266.2 MOS/KG (273-304); Potassium 3.8 MMOL/L (3.5-5.1)
[2017-02-14 06:56] LABS: Band Neutrophils 18 % (0-10); Dohle Bodies Few; Hypochromasia 1+; Lymphocytes 8 % (20-55); Platelet Estimate Adequate; Segmented Neutrophils 71 % (50-85); Total Cells Counted 100
[2017-02-14] MEDS: ENOXAPARIN 40 MG/0.4 ML SYRINGE SUBCUT SCH (08:03)
[2017-02-14] MEDS: CITALOPRAM 40 MG TABLET PO SCH (10:32)
[2017-02-14] MEDS: FLUTICASONE 50 MCG NASAL SPRAY 16 GM BOTTLE BOTH NARES SCH (10:32)
[2017-02-14] MEDS: OXYBUTYNIN 5 MG TABLET PO SCH ×2 (10:32→20:40)
[2017-02-14] MEDS: PANTOPRAZOLE 40 MG TABLET PO SCH (10:33)
[2017-02-14] MEDS: BISOPROLOL/HCTZ 2.5-6.25 MG TABLET PO SCH (10:33)
[2017-02-14] MEDS: ATORVASTATIN 40 MG TABLET PO SCH (10:33)
[2017-02-14] MEDS: LEVOTHYROXINE 50 MCG TABLET PO SCH (10:33)
--- NOTE | 2017-02-14 10:48 | Post Interventional Procedure ---
Pre-op diagnosis: S/p colon resection with tube abscess drain partial retracted Post-op diagnosis: same Procedure: CT abscess drainage Radiologist: Reed Ratliff Anesthesia: local Medications: 1% local lidocaine Specimens: none sent Estimated blood loss: none Complications: none Condition: stable Description/Findings: CT guided abscess drain The risk and benefits were explained. The patient's drain was in place and have become partially retracted. CT imaging was performed and the area was cleansed with ChloraPrep. 1% local lidocaine was administered and a guidewire was manipulated into the cavity and 14 Spanish tube was placed into the abdomen with air and stool and debris removed. The findings were discussed with Dr. Bridges. I feel this patient will require repeat operation to seal the anastomotic leak. Assessment and Plan - Time spent with patient Time spent with patient: Less than 30 minutes
--- NOTE | 2017-02-14 10:58 | CT Report ---
Exam: CT abscess drainage peritoneal Date: 02/14/2017 Indication: Abscess drain has partially retracted. Comparison: 02/12/2017 Findings: The risk and benefits were explained and informed consent was obtained. The abdomen was prepped with ChloraPrep and 1% local lidocaine was administered. The initial to that of and placed on Wednesday is partially retracted. The tube was cut and a guidewire was manipulated into the area appears to be in the abscess collection. The patient had a 14 Martiniquais tube placed after 1% local lidocaine was administered and the tube was connected to a UreSil drainage catheter bag. A large amount of air and fluid is present. Estimated blood loss of none Complications none Condition stable Specimen none. Sent to the lab as this is oriented been performed. Findings were discussed with Dr. Bridges and I feel this patient will require being taken back to the operating room to further assess what appears to be an anastomotic leak with a large volume of stool and air present in the right abdomen. Impression: 1. Satisfactory placement of a drainage tube in the right upper abdomen with a large abscess and air fluid collection present. PROCEDURE INTERPRETED AT [facility] DEPARTMENT OF RADIOLOGY Final Report Signed by: Dr. Reed Ratliff
--- NOTE | 2017-02-14 14:00 | Event Note ---
General Surgery Progress Note Chief complaint This patient is a 76-year-old woman who was admitted after laparoscopic converted to open right colectomy on 02/04/2017 for colon cancer complicated by a contained anastomotic leak that was treated with percutaneous drainage on 02/12 Interval history The patient pulled out her drain last night. It was replaced by interventional radiology today. She spiked a fever after her procedure but has defervesced since then. She is only eating about 10-15% of her meals yesterday. Her drain is currently and is not holding suction real well or at least it is filling up with the air quickly but not a lot a liquid output. She feels about the same as yesterday overall. Her lab work demonstrates a normal white blood cell count and anemia with a hemoglobin of 7.9 g/dL. Creatinine is normal. Physical exam The patient is afebrile currently but she does have intermittent fever spikes. Her blood pressure is normal. She is not tachycardic. Chest is clear Heart is regular with no murmurs Abdominal exam reveals no significant tenderness with a clean midline incision. The percutaneous drain in the right upper quadrant has air coming out of it but minimal fluid. The according is compressed and it fills up with irrigant relatively quickly. There is a small amount of enteric contents coming out through the drain. There is no erythema on the abdominal wall or significant tenderness or induration. Labs The patient's white blood cell count is normal. Creatinine is improved Imaging CT scan from drainage procedure today reviewed. There is still large fluid collection present with air mixed in with the Assessment and plan Continue IV fluids and add a peripheral alimentation today. Continue antibiotics Repeat labs tomorrow I have discussed the care of this patient with her primary surgeon Dr. Meeks who has decided to take her to the OR tomorrow and cut down over this fluid collection. I do not think she is in any danger from a source control standpoint there would require her to have an operation today. This was all discussed with the patient and her in the room.
[2017-02-14] MEDS: DEXTROSE 5% LACTATED RINGERS 1,000 ML IV SCH ×2 (17:30→21:30)
[2017-02-14] MEDS: TEMAZEPAM 15 MG CAPSULE PO PRN (20:39)
[2017-02-15] MEDS: cefOXitin 1,000 MG in SODIUM CHLORIDE 0.9% 100 ML IV SCH ×2 (01:23→10:30)
[2017-02-15] MEDS ORDERED: SODIUM CHLORIDE 0.9% 250 ML IV PRN (05:45)
--- NOTE | 2017-02-15 06:41 | Event Note ---
She feels surprisingly well. She still had a large collection of fluid and gas in her right upper abdomen and a larger drain was placed by interventional radiology. She is now afebrile with stable vital signs. Her appetite is poor but she has been taking some p.o. I think that she has clearly a leak from her anastomosis. She needs to have a larger drain placed. I can probably accomplish this under sedation and local anesthesia. Did explain to her and her that it probably would not be practical to try to repair the leak. I think it would also be very difficult to construct an ileostomy in her frozen abdomen. I will washout this space and place a larger drain. Hopefully this will control the leakage and contamination. She actually is afebrile with a normal white count now. Nutritional support is becoming an issue. She has had marginal p.o. intake over the last several days and I can place a central line and we can supplement with TPN if needed. I think that she would pull out a feeding tube
[2017-02-15] MEDS ORDERED: BUPIVACAINE 0.25% 50 ML VIAL ONE (06:42)
[2017-02-15] MEDS ORDERED: BUPIVACAINE 0.5% /EPI 10 ML VIAL ONE (06:42)
[2017-02-15] MEDS ORDERED: DEXAMETHASONE 10 MG/1 ML VIAL ONE (07:10)
[2017-02-15] MEDS ORDERED: LIDOCAINE 2% 5 ML VIAL ONE (07:10)
[2017-02-15] MEDS ORDERED: KETOROLAC 30 MG/1 ML VIAL ONE (07:10)
[2017-02-15] MEDS ORDERED: ONDANSETRON 4 MG/2 ML VIAL ONE (07:10)
[2017-02-15] MEDS ORDERED: ETOMIDATE 20 MG/10 ML VIAL IV ONE (07:10)
[2017-02-15] MEDS ORDERED: PROPOFOL 200 MG/20 ML VIAL IV ONE (07:10)
--- NOTE | 2017-02-15 07:52 | Operative Note ---
Date of procedure: 02/15/17 Pre-op diagnosis: Intra-abdominal abscess Post-op diagnosis: same Procedure: Limited laparotomy with drainage of intra-abdominal abscess Findings and technique: After informed consent was obtained the patient was brought the operating room and placed in supine position. After IV sedation was administered the patient's abdomen was prepped and draped in usual sterile fashion. Patient had a percutaneous drain in her right upper quadrant. Her midline incision was unremarkable in appearance with no signs of infection. The drain was prepped into the operative field and local anesthesia infiltrated widely around the site both in the subcutaneous and muscular layers. A small transverse incision was made at the drain puncture site. This was about 2 cm in length. I then used S retractors and cautery and blunt dissection and followed the drain down into the peritoneal cavity. At this point I encountered gas and feculent appearing liquid. Suction cannula was placed and this was evacuated removing about 150 cc of liquid. I then enlarged the opening into the space which was a well-defined space. I could place the S retractor in place and visualize the daley of the cavity which were granulated bowel surface. Individual loops of bowel could not be identified. A leak site could not clearly be identified. It was clear that she probably had had an anastomotic leak. There was not active accumulation of liquid or feculent material that I could see. This space was very well-defined and was irrigated out with several 100 cc of warm saline. I then placed a 1.7 cm Silastic sump drain through this opening into the space. This was then sutured to the skin. She appeared to tolerate the procedure well. Fortunately if there has been a leak head is been contained in the space and has not caused peritonitis. Anesthesia is placing a central line so that we can have it for nutritional support. Anesthesia: MAC, local Surgeon / Physician: Nikolas Meeks III. Estimated blood loss: minimal Specimens: none sent Condition: stable Disposition: PACU Results - Labs CBC & BMP: 02/14/17 03:39 02/14/17 03:39 Discharge Plan - Discharge Medications No Action Acetamin/Codeine 300-30 Tab [Tylenol/Codeine #3] 1 tablet PO Q8HR PRN PRN Reason: Pain Clorazepate Dipotassium 7.5 mg PO TID Atorvastatin [Lipitor] 40 mg PO DAILY Levothyroxine Tab [Synthroid Tab] 50 mcg PO DAILY Citalopram [CeleXA] 40 mg PO DAILY Bisoprolol/Hctz 2.5-6.25 [Ziac 2.5-6.25] 1 tablet PO DAILY Promethazine Tab [Phenergan Tab] 25 mg PO Q6H PRN PRN Reason: Nausea Omeprazole 20 mg PO DAILY hydrOXYzine HCl [Hydroxyzine HCl] 25 mg PO QID PRN PRN Reason: Allergy Symptoms Fluticasone Propionate [Fluticasone 50 mcg Nasal [place]] 1 spray BOTH NARES DAILY Oxybutynin [Ditropan] 5 mg PO BID Albuterol Inhaler [Proventil Inhaler] 2 puff INH Q6H PRN PRN Reason: Shortness Of Breath/Wheezing Temazepam [Restoril] 30 mg PO BEDTIME PRN PRN Reason: Sleep - Follow Up or Referral - Forms/Instructions
--- NOTE | 2017-02-15 08:25 | Anesthesia Post-Op ---
Anesthesia Post OP - Post Ansesthetic Evaluation Patient seen in post op: Yes Resp: within normal limits CV: within normal limits Mental: within normal limits Temp: within normal limits [id number]: within normal limits Nausea and Vomiting: within normal limits Pain: within normal limits
[2017-02-15] MEDS ORDERED: fentaNYL 100 MCG/2 ML VIAL ONE (08:31)
[2017-02-15] MEDS ORDERED: MIDAZOLAM 2 MG/2 ML VIAL ONE (08:32)
--- NOTE | 2017-02-15 08:37 | XRay Report ---
Portable chest Date: 02/15/2017 Clinical history: Central line placement Comparison: 02/11/2017 Technique: Portable AP supine chest Findings: The heart is minimally enlarged. Insertion of right IJ CVP on the tip at junction of SVC and right atrium. No evidence of pneumothorax. Minimal atelectasis at the lung bases. Stable mediastinum and osseous structures. Incidental carotid artery calcification. Impression: Status post insertion of right IJ CVP line with no pneumothorax. Minimal atelectasis. Left carotid artery calcification. PROCEDURE INTERPRETED AT [facility] DEPARTMENT OF RADIOLOGY Final Report Signed by: Dr. Rufina Coleman
[2017-02-15] MEDS ORDERED: DEXTROSE 50% 25 GM/50 ML VIAL IV PRN (09:15)
[2017-02-15] MEDS ORDERED: GLUCAGON 1 MG VIAL IM PRN (09:15)
[2017-02-15] MEDS: PIPERACILLIN/TAZOBACTAM 3,375 MG in SODIUM CHLORIDE 0.9% 100 ML IV SCH ×2 (10:44→18:37)
[2017-02-15] MEDS: CITALOPRAM 40 MG TABLET PO SCH (16:04)
[2017-02-15] MEDS: ENOXAPARIN 40 MG/0.4 ML SYRINGE SUBCUT SCH (16:04)
[2017-02-15] MEDS: FLUTICASONE 50 MCG NASAL SPRAY 16 GM BOTTLE BOTH NARES SCH (16:05)
[2017-02-15] MEDS: ATORVASTATIN 40 MG TABLET PO SCH (16:05)
[2017-02-15] MEDS: PANTOPRAZOLE 40 MG TABLET PO SCH (16:05)
[2017-02-15] MEDS: LEVOTHYROXINE 50 MCG TABLET PO SCH (16:05)
[2017-02-15] MEDS: OXYBUTYNIN 5 MG TABLET PO SCH ×2 (16:05→21:54)
[2017-02-15] MEDS: BISOPROLOL/HCTZ 2.5-6.25 MG TABLET PO SCH (16:05)
[2017-02-15] MEDS ORDERED: DEXTROSE 10% 1,000 ML IV PRN (17:00)
[2017-02-15] MEDS ORDERED: TRACE ELEMENTS (5) 1 ML, MULTIVITAMIN INJ 10 ML in AMINO ACIDS/DEXT/LYTES 5-15% 1,000 ML IV SCH (17:00)
[2017-02-15] MEDS: FAT EMULSION 20% 250 ML IV SCH (18:29)
[2017-02-15] MEDS: DEXTROSE 5% LACTATED RINGERS 1,000 ML IV SCH (18:32)
[2017-02-15] MEDS: INSULIN REGULAR 100 UNIT/ML SUBCUT SCH (18:38)
[2017-02-15] MEDS: TEMAZEPAM 15 MG CAPSULE PO PRN (21:54)
[2017-02-16] MEDS: PIPERACILLIN/TAZOBACTAM 3,375 MG in SODIUM CHLORIDE 0.9% 100 ML IV SCH ×3 (02:35→17:36)
[2017-02-16] MEDS: INSULIN REGULAR 100 UNIT/ML SUBCUT SCH ×5 (03:12→20:22)
[2017-02-16 06:51] LABS: Calcium 7.6 MG/DL (8.5-10.1); Magnesium 2.1 MG/DL (1.8-2.4); Phosphorous 2.5 MG/DL (2.5-4.9); Potassium 3.7 MMOL/L (3.5-5.1); Prealbumin 6.5 MG/DL (20-40)
[2017-02-16 07:00] LABS: Basophils % 0.2 % (0.0-0.8); Hematocrit 30.3 VOL% (35.7-47.0); Immature Granulocytes % 3.8 %; Immature Granulocytes Absolute 0.19 #; Lymphocytes # 0.6 10*3/uL (1.4-4.0); Lymphocytes % 11.9 % (21.3-54.2); Mean Corpuscular HGB Conc 33.3 GM/DL (32-36); Mean Corpuscular Hemoglobin 30 PG (27-34); Mean Corpuscular Volume 91.3 FL (87-102); Mean Platelet Volume 10.5 FL (9.6-12.0); Monocytes # 0.4 10*3/uL (0.11-0.8); Monocytes % 8.3 % (1.7-12.7); Neutrophils # 3.8 10*3/uL (1.4-7.4); Neutrophils % 75.8 % (38.7-73.9); Platelet Count 336 T/CUMM (130-400); Red Cell Distribution Width 13.4 % (9.3-17.3)
--- NOTE | 2017-02-16 07:11 | Event Note ---
She feels much better. She denies pain this morning. She ate well last night. She has not had fever in 36 hours. She has much diminished drain output. We will get her up more today. I would like to continue IV antibiotics and drainage.
[2017-02-16 07:16] LABS: Hemoglobin 10.1 GM/DL (12.0-16.0); Red Blood Count 3.32 MC/CUMM (3.8-5.5)
[2017-02-16 07:22] LABS: Band Neutrophils 12 % (0-10); Giant Platelets Few; Hypochromasia 1+; Lymphocytes 12 % (20-55); Ovalocytes Slight; Platelet Estimate Adequate; Segmented Neutrophils 69 % (50-85); Total Cells Counted 100
[2017-02-16 07:23] LABS: Microcytosis 1+
[2017-02-16] MEDS: OXYBUTYNIN 5 MG TABLET PO SCH ×2 (09:37→20:22)
[2017-02-16] MEDS: ENOXAPARIN 40 MG/0.4 ML SYRINGE SUBCUT SCH (09:37)
[2017-02-16] MEDS: ATORVASTATIN 40 MG TABLET PO SCH (09:37)
[2017-02-16] MEDS: PANTOPRAZOLE 40 MG TABLET PO SCH (09:37)
[2017-02-16] MEDS: LEVOTHYROXINE 50 MCG TABLET PO SCH (09:37)
[2017-02-16] MEDS: BISOPROLOL/HCTZ 2.5-6.25 MG TABLET PO SCH (09:37)
[2017-02-16] MEDS: CITALOPRAM 40 MG TABLET PO SCH (09:37)
[2017-02-16] MEDS: FLUTICASONE 50 MCG NASAL SPRAY 16 GM BOTTLE BOTH NARES SCH (09:38)
[2017-02-16] MEDS: FAT EMULSION 20% 250 ML IV SCH (15:46)
[2017-02-16] MEDS: TRACE ELEMENTS (5) 1 ML, MULTIVITAMIN INJ 10 ML, INSULIN REGULAR 20 UNIT in AMINO ACIDS... IV SCH (17:41)
[2017-02-16] MEDS ORDERED: TRACE ELEMENTS (5) 1 ML, MULTIVITAMIN INJ 10 ML in AMINO ACIDS/DEXT/LYTES 5-15% 2,000 ML IV SCH (18:16)
[2017-02-16] MEDS: TEMAZEPAM 15 MG CAPSULE PO PRN (20:22)
[2017-02-17] MEDS: INSULIN REGULAR 100 UNIT/ML SUBCUT SCH ×4 (00:34→19:02)
[2017-02-17] MEDS: PIPERACILLIN/TAZOBACTAM 3,375 MG in SODIUM CHLORIDE 0.9% 100 ML IV SCH ×4 (06:03→21:12)
--- NOTE | 2017-02-17 08:02 | Event Note ---
She feels well overall but has pain around her drain site. Her large sump drain appears clogged with feculent material. We have tried irrigating this and were unable to get it to flow. She is now leaking stool around the drain. She feels well overall and is afebrile with a normal white blood cell count. She has been ambulating and eating. I am concerned about the potential space around the anastomosis where the abscess cavity was located. I do not feel that we have had this collapsed long enough. Would like to explore this in the operating room and irrigate out the space once again and may look at placing another drain or opening it up wider and leaving it open with an ostomy bag. Procedure and risk of been discussed with the patient.
[2017-02-17] MEDS ORDERED: LIDOCAINE 1%/EPI INJ 20 ML VIAL ONE (08:41)
--- NOTE | 2017-02-17 09:05 | Operative Note ---
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 After IV sedation was administered the patient's abdomen was prepped and draped in usual sterile fashion. Her incision looked normal. The drain site was inspected and there was no evidence of infection or cellulitis around the drain. The large sump drain was clogged. A sump drain was removed and a large amount of retained liquid and stool is noted behind the drain and this was suctioned out. The suture which I used to partially close this drain site was removed opening up the drainage site larger and I was able to place my finger in the space that had been present before was largely collapsed much smaller than before. This cavity was irrigated out and I elected to leave this open completely with an ostomy bag in place. She appeared to tolerate the procedure well. Local anesthesia was used around the drain site and she tolerated this well. Anesthesia: MAC, local Surgeon / Physician: Nikolas Meeks III. Estimated blood loss: none Specimens: none sent Condition: stable Disposition: PACU Results - Labs CBC & BMP: 02/16/17 05:40 02/16/17 05:40 Discharge Plan - Discharge Medications No Action Acetamin/Codeine 300-30 Tab [Tylenol/Codeine #3] 1 tablet PO Q8HR PRN PRN Reason: Pain Clorazepate Dipotassium 7.5 mg PO TID Atorvastatin [Lipitor] 40 mg PO DAILY Levothyroxine Tab [Synthroid Tab] 50 mcg PO DAILY Citalopram [CeleXA] 40 mg PO DAILY Bisoprolol/Hctz 2.5-6.25 [Ziac 2.5-6.25] 1 tablet PO DAILY Promethazine Tab [Phenergan Tab] 25 mg PO Q6H PRN PRN Reason: Nausea Omeprazole 20 mg PO DAILY hydrOXYzine HCl [Hydroxyzine HCl] 25 mg PO QID PRN PRN Reason: Allergy Symptoms Fluticasone Propionate [Fluticasone 50 mcg Nasal [place]] 1 spray BOTH NARES DAILY Oxybutynin [Ditropan] 5 mg PO BID Albuterol Inhaler [Proventil Inhaler] 2 puff INH Q6H PRN PRN Reason: Shortness Of Breath/Wheezing Temazepam [Restoril] 30 mg PO BEDTIME PRN PRN Reason: Sleep - Follow Up or Referral - Forms/Instructions
--- NOTE | 2017-02-17 09:16 | Anesthesia Post-Op ---
Anesthesia Post OP - Post Ansesthetic Evaluation Patient seen in post op: Yes Resp: within normal limits CV: within normal limits Mental: within normal limits Temp: within normal limits [id number]-[id number]: within normal limits Nausea and Vomiting: within normal limits Pain: within normal limits
[2017-02-17] MEDS ORDERED: MIDAZOLAM 2 MG/2 ML VIAL ONE (09:26)
[2017-02-17] MEDS ORDERED: fentaNYL 100 MCG/2 ML VIAL ONE (09:26)
[2017-02-17] MEDS ORDERED: LACTATED RINGERS 1,000 ML IV SCH (10:00)
[2017-02-17] MEDS: PANTOPRAZOLE 40 MG TABLET PO SCH (10:09)
[2017-02-17] MEDS: LEVOTHYROXINE 50 MCG TABLET PO SCH (10:09)
[2017-02-17] MEDS: ATORVASTATIN 40 MG TABLET PO SCH (10:10)
[2017-02-17] MEDS: FLUTICASONE 50 MCG NASAL SPRAY 16 GM BOTTLE BOTH NARES SCH (10:10)
[2017-02-17] MEDS: BISOPROLOL/HCTZ 2.5-6.25 MG TABLET PO SCH (10:10)
[2017-02-17] MEDS: OXYBUTYNIN 5 MG TABLET PO SCH ×2 (10:10→21:11)
[2017-02-17] MEDS: CITALOPRAM 40 MG TABLET PO SCH (10:10)
[2017-02-17] MEDS: ENOXAPARIN 40 MG/0.4 ML SYRINGE SUBCUT SCH (10:10)
[2017-02-17] MEDS: DEXTROSE 5% LACTATED RINGERS 1,000 ML IV SCH ×2 (13:45→22:15)
[2017-02-17] MEDS: FAT EMULSION 20% 250 ML IV SCH (14:25)
[2017-02-17] MEDS: TEMAZEPAM 15 MG CAPSULE PO PRN (21:11)
[2017-02-18] MEDS: INSULIN REGULAR 100 UNIT/ML SUBCUT SCH ×5 (00:14→23:45)
[2017-02-18] MEDS: TRACE ELEMENTS (5) 1 ML, MULTIVITAMIN INJ 10 ML, INSULIN REGULAR 20 UNIT in AMINO ACIDS... IV SCH (00:21)
[2017-02-18] MEDS: PIPERACILLIN/TAZOBACTAM 3,375 MG in SODIUM CHLORIDE 0.9% 100 ML IV SCH ×3 (05:35→22:03)
--- NOTE | 2017-02-18 06:38 | Event Note ---
She feels better and wants to go home. She is tolerating a diet. She is afebrile with stable vital signs. She is having enteric output from her right upper quadrant drain site that I opened up the bladder. She has an ostomy bag in place. 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 It does not appear to be high output. We will have ostomy teaching done by the enterostomal therapy nurse today. I think that probably by tomorrow she would be okay to go home with home health.
[2017-02-18 07:54] LABS: Calcium 7.7 MG/DL (8.5-10.1); Magnesium 2.1 MG/DL (1.8-2.4); Phosphorous 4.5 MG/DL (2.5-4.9); Potassium 3.9 MMOL/L (3.5-5.1); Prealbumin 15.1 MG/DL (20-40)
[2017-02-18] MEDS: LEVOTHYROXINE 50 MCG TABLET PO SCH (08:49)
[2017-02-18] MEDS: CITALOPRAM 40 MG TABLET PO SCH (08:49)
[2017-02-18] MEDS: ATORVASTATIN 40 MG TABLET PO SCH (08:50)
[2017-02-18] MEDS: PANTOPRAZOLE 40 MG TABLET PO SCH (08:50)
[2017-02-18] MEDS: OXYBUTYNIN 5 MG TABLET PO SCH ×2 (08:50→20:36)
[2017-02-18] MEDS: ENOXAPARIN 40 MG/0.4 ML SYRINGE SUBCUT SCH (08:51)
[2017-02-18] MEDS: FLUTICASONE 50 MCG NASAL SPRAY 16 GM BOTTLE BOTH NARES SCH (09:00)
[2017-02-18] MEDS: BISOPROLOL/HCTZ 2.5-6.25 MG TABLET PO SCH (12:26)
--- NOTE | 2017-02-18 14:19 | Pathology Report from [facility] ---
[facility] [place] : [id number] PATIENT NAME : Namrata Westbrook ORDERING DR : PERLA PETERS III, MD CLINICAL HX: Infraabdominal abscess w/enterocutaneous fistula POST-OP DX: Same SPECIMEN INFO: Sump drain GROSS DESCRIPTION: The specimen is received fresh labeled ANNI [place]OOK consist of a sump drain, submitted for gross exam. DIAGNOSIS FOR NAMRATA WESTBROOK: Sump drain, gross only. COLLECTED DATE: 02/17/2017 [facility] [place]: 02/18/2017 ELECTRONICALLY SIGNED BY: Dave Laboy M.D. 02/18/2017 - 8:18:34 [email or web address]
[2017-02-18] MEDS: FAT EMULSION 20% 250 ML IV SCH (14:35)
[2017-02-18] MEDS: ACETAMINOPHEN 325 MG TABLET PO PRN (20:36)
[2017-02-19] MEDS: DEXTROSE 5% LACTATED RINGERS 1,000 ML IV SCH ×2 (05:27→05:28)
[2017-02-19] MEDS: PIPERACILLIN/TAZOBACTAM 3,375 MG in SODIUM CHLORIDE 0.9% 100 ML IV SCH (05:28)
[2017-02-19] MEDS: INSULIN REGULAR 100 UNIT/ML SUBCUT SCH ×2 (06:47→14:30)
--- NOTE | 2017-02-19 07:52 | Event Note ---
She feels well. She is eating well. She is having a mild to moderate amount of output in her ostomy bag. This appears to represent a low output fistula. It appears that she has had about 200 cc in the last day or so. Her wound is fine. We have done ostomy teaching. We will do this again today and if her family is comfortable taking her home she should be fine for discharge from my standpoint. We will follow her up in the office next week. We are arranging home health to help with ostomy care.
[2017-02-19] MEDS: ACETAMINOPHEN 325 MG TABLET PO PRN (08:56)
[2017-02-19] MEDS: LEVOTHYROXINE 50 MCG TABLET PO SCH (08:57)
[2017-02-19] MEDS: BISOPROLOL/HCTZ 2.5-6.25 MG TABLET PO SCH (08:58)
[2017-02-19] MEDS: ATORVASTATIN 40 MG TABLET PO SCH (08:58)
[2017-02-19] MEDS: PANTOPRAZOLE 40 MG TABLET PO SCH (08:58)
[2017-02-19] MEDS: OXYBUTYNIN 5 MG TABLET PO SCH (08:58)
[2017-02-19] MEDS: CITALOPRAM 40 MG TABLET PO SCH (08:58)
[2017-02-19] MEDS: ENOXAPARIN 40 MG/0.4 ML SYRINGE SUBCUT SCH (08:59)
--- NOTE | 2017-02-19 11:12 | Discharge Summary ---
Hospital Course - Hospital Course Hospital Course: Patient is a 76-year-old female who underwent right hemicolectomy for colon cancer of the ascending colon on February 04, 2017. Initially, she experienced a prolonged ileus as the return of her bowel function was completed with the patient's long-standing history of chronic constipation and redundant colon. She experienced difficulty tolerating diet with the ileus, so she ultimately required TPN for nutrition support through a central line. With persistent fevers, and a CT of the abdomen and pelvis was performed revealing an abdominal abscess on 02/12/2017 which underwent percutaneous placement of pigtail drain with interventional radiology with IV antibiotics. Repeat CT scan was performed on 02/14/2017 with concern for anastomotic leak. Patient underwent laparotomy with drainage of intra-abdominal abscess and placement of a sump drain on 02/15/[address] Meeks again, and a central line was placed at this time by the anesthesia team. Sump drain failed and the patient returned to the operating room on 02/17/[address] Meeks for drainage of an intra- abdominal abscess associated with an enterocutaneous fistula. Ultimately, the patient was tolerating oral intake better with appropriate colostomy output and was stable for discharge. The family and patient were provided with ostomy care teaching on separate occasions and were discharged with home health services for further assistance. She was provided with follow-up with Dr. Meeks in 1 week or sooner if needed. Recommended to continue Ensure 3 times daily as her appetite continues to improve. Patient was discharged home with her family in good condition. Diagnosis - Discharge Diagnosis (1) Colon cancer Status: Acute (2) Ileus, postoperative Status: Acute (3) Chronic constipation Status: Acute (4) Abdominal abscess Status: Acute (5) Fistula Status: Acute Specialty Discharge - Follow Up or Referrals Follow up with: Nikolas Meeks III., MD [Physician] - 02/25/17 3:00 pm Discharge Plan - Discharge Data Disposition: Home Health Service Condition at Discharge: Stable Discharge Diet: other (Soft diet as below) Hygiene: may shower Driving: not until seen by doctor Contact your physician if you experience:: fever over 101, Redness or swelling, Nausea/Vomiting, Shortness of breath, Bleeding, pain uncontrolled by pain medications Wound / Dressing Care Instructions: Colostomy care as below. - Discharge Medications New Hydrocodone/Acetaminophen [Hydrocodon-Acetaminophen 5-325] 1 each PO Q6H PRN #30 tablet PRN Reason: Pain Moderate To Severe (4-10) Lactose-Reduced Food [Ensure Original] 237 ml PO TID #90 liquid Continue Clorazepate Dipotassium 7.5 mg PO TID Atorvastatin [Lipitor] 40 mg PO DAILY Levothyroxine Tab [Synthroid Tab] 50 mcg PO DAILY Citalopram [CeleXA] 40 mg PO DAILY Bisoprolol/Hctz 2.5-6.25 [Ziac 2.5-6.25] 1 tablet PO DAILY Promethazine Tab [Phenergan Tab] 25 mg PO Q6H PRN PRN Reason: Nausea Omeprazole 20 mg PO DAILY hydrOXYzine HCl [Hydroxyzine HCl] 25 mg PO QID PRN PRN Reason: Allergy Symptoms Fluticasone Propionate [Fluticasone 50 mcg Nasal [place]] 1 spray BOTH NARES DAILY Oxybutynin [Ditropan] 5 mg PO BID Albuterol Inhaler [Proventil Inhaler] 2 puff INH Q6H PRN PRN Reason: Shortness Of Breath/Wheezing Temazepam [Restoril] 30 mg PO BEDTIME PRN PRN Reason: Sleep Discontinued Acetamin/Codeine 300-30 Tab [Tylenol/Codeine #3] 1 tablet PO Q8HR PRN PRN Reason: Pain - Follow Up or Referral Follow Up: Nikolas Meeks III., MD [Physician] - 02/25/17 3:00 pm - Forms/Instructions Instructions: Soft Diet (DC), Colostomy Care (DC) Exam - Constitutional Vitals: Period Temp Pulse Resp BP Sys/Sow Pulse Ox Last 24 Hr 96.8 F-98.6 F 47-70 17-96 114-164/53-86 94-98 Discharge Results Procedures and tests throughout hospitalization: Right hemicolectomy 02/04/[address] Meeks Pathology revealed invasive adenocarcinoma of 2 lesions one of the ascending colon, and the terminal ileum with invasion into but not through the muscularis propria 02/12/2017 percutaneous drain placement and intra-abdominal abscess with Dr. Barrett 02/15/2017 I&D intra-abdominal abscess with Dr. Meeks 02/15/2017 central line placement by anesthesia team -left internal jugular vein 02/17/2017 I&D intra-abdominal abscess with Dr. Meeks Labs on day of discharge: Labs from last 24 hours 02/19/17 02/18/17 02/18/17 05:32 23:51 18:08 POC Glucose 116 H 135 H 135 H 02/18/17 11:17 POC Glucose 140 H - Imaging and Cardiology Procedure: Chest x-ray: image reviewed by me, report reviewed by me, CT Abdomen and Pelvis: image reviewed by me, report reviewed by me ([facility] notes) DS: Provider Date of admission: 02/04/17 11:03 Primary care physician: Reed Friedman, Attending physician on admission: Nikolas Meeks, III., Consults: 02/14/17 11:30 Consult to Dietitian [CONS] Routine Reason for Dietitian: TPN/PPN-Initiate/Manage Consult Comment: PPN 02/15/17 08:12 Consult to Dietitian [CONS] Routine Reason for Dietitian: TPN/PPN-Initiate/Manage Consult Comment: Now has central line for TPN 02/16/17 14:18 Consult to Case Mgmt/Social Srvs [CONS] Routine Reason for Case Mgmt/Social Srvs: Discharge Planning Consult Comment: home health with pt Discharging clinician: Glo Wilks PA-C
[2017-02-19 11:46] VITALS: BP 144/67
[2017-02-19] MEDS: TRACE ELEMENTS (5) 1 ML, MULTIVITAMIN INJ 10 ML, INSULIN REGULAR 20 UNIT in AMINO ACIDS... IV SCH (14:29)
[2017-02-19] MEDS: FLUTICASONE 50 MCG NASAL SPRAY 16 GM BOTTLE BOTH NARES SCH (14:29)
--- NOTE | 2017-03-02 07:13 | Physician Query Form ---
CLICK EDIT DOCUMENT TO SELECT QUERY ANSWER --> OK --> SIGN Criss Amanda RN, CCDS Certified Clinical Ship Carpenter W) [phone] (f) [phone] [email or web address] PROVIDERS: Make your selection(s) from the choices in EACH section by typing an "x" and enter comments in the comment section. Please use your independent medical judgment in providing your response. This request does not imply that any particular answer is desired or expected. CLINICAL INDICATORS: (Providers should not edit this section) The medical record indicates that the patient was admitted with colon cancer, had surgery then on the : "spiked a fever" 102.2, : WBC 12.2#, : Bands to 13%, and the patient would later have "laparotomy with drainage of intra-abdominal abscess". Please clarify which, if any, of the following is the etiology of the above symptoms and treatment rendered: ( ) Sepsis due to a localized infection, please specify infection: ( ) Severe Sepsis (sepsis with acute organ failure) - Please specify type acute organ failure: ( ) Septic Shock (severe sepsis with hypotension) ( ) SIRS of noninfectious origin ( ) Sepsis due to a device, implant or graft, please specify: ( x ) Localized infection only, without systemic illness, please specify infection: ( ) Bacteremia (abnormal lab finding only, does not indicate systemic illness) ( ) Other condition, please specify: ( ) Clinically unable to determine Criteria for Sepsis (SIRS due to an infection) should be based on 2 or more of the following being present: Temperature > 101F or < 96.8F WBC > 12,000 or < 4,000, or > 10% bands Tachycardia HR > 90 beats/minute Tachypnea RR > 20 breaths/minute or PaCO2 > 32mmHg Lactate level > 2.0 mmol/L (>4 is equivalent to severe sepsis) Altered Mental Status Mottling of skin or prolonged capillary refill Non-diabetic hyperglycemia (blood sugar >120 mg/dl) Other evidence of acute organ failure associated with sepsis ( severe sepsis) COMMENTS: PLEASE ALSO DOCUMENT RESPONSE IN PROGRESS NOTES AND/OR DISCHARGE SUMMARY Use of terms such as suspected, likely, or probable (associated with a specific diagnosis that is being evaluated, monitored, or treated as if it exists) are acceptable and can be restated in the discharge summary if not ruled out. MTDD
== END 2017-02-19 12:30 | disposition home health service (06) | DRG 329 ==
LOC: N.OR 06:07 → N.SDSINP 06:08 → N.2E 12:18
PROVIDERS: ADMIT Surgery; ATTEND Surgery

== ENCOUNTER 2017-02-26 14:11 | Inpatient (IN) ==
[2017-02-26] MEDS: MORPHINE 2 MG/1 ML SYRINGE IV PRN ×2 (16:18→21:57)
[2017-02-26] MEDS: DEXTROSE 5% NACL 0.9% 1,000 ML IV SCH (16:30)
[2017-02-27 03:49] LABS: Basophils % 0.6 % (0.0-0.8); Eosinophils # 0.1 10*3/uL (0.0-0.87); Hematocrit 31.3 VOL% (35.7-47.0); Hemoglobin 10.3 GM/DL (12.0-16.0); Immature Granulocytes % 1.3 %; Immature Granulocytes Absolute 0.09 #; Lymphocytes # 1.8 10*3/uL (1.4-4.0); Lymphocytes % 25.7 % (21.3-54.2); Mean Corpuscular HGB Conc 32.9 GM/DL (32-36); Mean Corpuscular Hemoglobin 30 PG (27-34); Mean Corpuscular Volume 89.9 FL (87-102); Mean Platelet Volume 9.5 FL (9.6-12.0); Monocytes # 0.9 10*3/uL (0.11-0.8); Monocytes % 12.8 % (1.7-12.7); Neutrophils # 4.2 10*3/uL (1.4-7.4); Neutrophils % 58.6 % (38.7-73.9); Platelet Count 357 T/CUMM (130-400); Red Blood Count 3.48 MC/CUMM (3.8-5.5); Red Cell Distribution Width 13.6 % (9.3-17.3); White Blood Count 7.1 T/CUMM (4-12)
[2017-02-27 04:29] LABS: Albumin 2.2 G/DL (3.4-5.0); Bilirubin,Total 1.2 MG/DL (0.2-1.0); Calcium 8.3 MG/DL (8.5-10.1); Osmolality,Calculated 268.4 MOS/KG (273-304); Total Protein 5.4 G/DL (6.4-8.3)
[2017-02-27 05:07] LABS: Band Neutrophils 16 % (0-10); Eosinophils 2 % (0-10); Lymphocytes 23 % (20-55); Segmented Neutrophils 46 % (50-85)
[2017-02-27 05:12] LABS: Platelet Estimate Normal
[2017-02-27 05:13] LABS: Total Cells Counted 100
[2017-02-27] MEDS: DEXTROSE 5% NACL 0.9% 1,000 ML IV SCH ×3 (08:22→16:31)
[2017-02-27] MEDS: ENOXAPARIN 40 MG/0.4 ML SYRINGE SUBCUT SCH (08:22)
[2017-02-27] MEDS: PANTOPRAZOLE 40 MG TABLET PO SCH (08:22)
--- NOTE | 2017-02-27 08:34 | General Surg History&Physical ---
Assessment and Plan - Time spent with patient Time spent with patient: Less than 30 minutes (1) Dehydration Status: Acute Assessment and plan: I think that she is probably had inadequate p.o. intake in relation to output from her fistula. She feels better already with IV fluids she has had some low- grade temperature but a normal white blood cell count. I think once her renal function is better we can look at CT scan of her abdomen. The major problem with her is the fact that she has an atonic colon with obstipation most likely related to a long history of laxative abuse and chronic constipation. This likely contributed to her having an anastomotic leak she still is not having bowel movements. We could look at starting this with a gastric bladder graft and enema and this may be therapeutic as well. I do not expect her fistula to close until she is having no further obstructive symptoms from her colon. Current Visit: Yes History of Present Illness Chief complaint: Weak and dehydrated History of present illness: Ms. 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 She has been home for a week or so been eating poorly. Family states that she has been drinking some Ensure. She has had a moderate output from her fistula. She has felt increasingly weak and was felt to probably be dehydrated. We spoke with him by phone and have her come in last night for admission for IV fluids. She feels better overnight since she is gotten fluids. She denies any nausea or vomiting. Denies abdominal pain when I talk to her but she frequently request pain medication. Her family is worried that narcotic use and is a problem with her Home Medications Medication Instructions Recorded Confirmed Type Atorvastatin [Lipitor] 40 mg PO DAILY 01/21/17 02/26/17 History Bisoprolol/Hctz 2.5-6.25 [Ziac 1 tablet PO DAILY 01/21/17 02/26/17 History 2.5-6.25] Citalopram [CeleXA] 40 mg PO DAILY 01/21/17 02/26/17 History Clorazepate Dipotassium 7.5 mg PO TID 01/21/17 02/26/17 History Levothyroxine Tab [Synthroid Tab] 50 mcg PO DAILY 01/21/17 02/26/17 History Oxybutynin [Ditropan] 5 mg PO BID 01/21/17 02/26/17 History Promethazine Tab [Phenergan Tab] 25 mg PO Q6H PRN 01/21/17 02/26/17 History Albuterol Inhaler [Proventil 2 puff INH Q6H PRN 02/04/17 02/26/17 History Inhaler] Fluticasone Propionate 1 spray BOTH NARES DAILY 02/04/17 02/26/17 History [Fluticasone 50 mcg Nasal [place]] Omeprazole 20 mg PO DAILY 02/04/17 02/26/17 History Temazepam [Restoril] 30 mg PO BEDTIME PRN 02/04/17 02/26/17 History hydrOXYzine HCl [Hydroxyzine HCl] 25 mg PO QID PRN 02/04/17 02/26/17 History Hydrocodone/Acetaminophen 1 each PO Q6H PRN #30 tablet 02/19/17 02/26/17 Rx [Hydrocodon-Acetaminophen 5-325] Lactose-Reduced Food [Ensure 237 ml PO TID #90 liquid 02/19/17 02/26/17 Rx Original] Allergies Allergy/AdvReac Type Severity Reaction Status Date / Time No Known Allergies Allergy Verified 01/21/17 09:17 Medical,Surgical,& Family Hx - Medical History Cardio: History of: Hypertension (MEDICATION) No history of: Cardiac Dysrhythmia, CHF, NC, Pacemaker, Valvular Heart Disease Psychological: History of: Anxiety Disorders (MEDICATION), Depression ( MEDICATION) Neurology: No history of: Brain Aneurysm, Migraine, Peripheral Neuropathy, Seizures HEENT: Comment Only: Dental Problems (UPPPER AND LOWER) Endocrine: History of: Dyslipidemia Rheumatology: History of;: Gout Respiratory: History of: Bronchitis, COPD No history of: Obstructive Sleep Apnea Comment Only: Respiratory Problems (HAD FLU VACCINE UP TO DATE ON PNUEMONIA) Genitourinary: History of: Bladder Problem (HAD BLADDER TACT WITH MESH), Recurring Urinary Tract Infections Gastrointestinal: History of: GERD, Polyps (HAD POLYPS REMOVED), GI Problems ( Chronic constipation) Musculoskeletal: History of: Musculoskeletal Problems (BURSITIS IN LEFT HIP) Hematology: No history of: Blood Transfusion Reaction Other: No history of: Anesthesia Reactions - Surgical History Cardiac Surgeries: Patient Denies: Cardiac Catheterization Neurologic Surgeries: Patient denies: Brain Aneurysm HEENT Surgeries: Surgical HX of: Eye Surgery (BILATERAL CATARACT SURGERY) Abdominal Surgeries: Surgical HX of: Appendectomy, Cholecystectomy, Colonoscopy (REMOVED 9 INCHES OF COLON) Reproductive Surgeries: Surgical HX of;: Hysterectomy Orthopedic Surgeries: Surgical HX of;: Total Knee Replacement (LEFT KNEE REPLACEMENT) - Family History Family History: Reports;: Family Stroke (MOTHER) - Social History Smoking Status: Current every day smoker Frequency of Alcohol Use: None Type of Drug Use: None Exam - Constitutional Vitals: Period Temp Pulse Resp BP Sys/Sow Pulse Ox Last 24 Hr 97.8 F-100.2 F 68-76 18-18 95-137/50-61 94-100 General appearance: no acute distress - Head Head exam: Present: normocephalic - Eye Eye exam: Absent: scleral icterus - ENT Mouth exam: Present: normal voice - Respiratory Respiratory exam: Present: clear to auscultation bilaterally. Absent: accessory muscle use - Cardiovascular Cardiovascular exam: Present: RRR - GI/Abdominal GI/Abdominal exam: Present: soft. Absent: distended, tenderness, rebound - Extremities Exam Extremities exam: Absent: edema - Neurological Exam Neurological exam: Present: alert, oriented X3. Absent: motor sensory deficit Speech: Present: normal - Skin Skin exam: Present: normal color - Constitutional Constitutional: Present: weight loss. Absent: chills, fever(s) - Cardiovascular Cardiovascular: Absent: chest pain at rest, chest pain with activity, dyspnea, dyspnea on exertion, syncope - Respiratory Respiratory: Absent: hemoptysis - Gastrointestinal Gastrointestinal: Present: abdominal pain. Absent: hematemesis, hematochezia, nausea, vomiting, jaundice - Genitourinary Genitourinary: Absent: hematuria - Musculoskeletal Musculoskeletal: Present: back pain - Neurological Neurological: Absent: focal weakness, syncope - Endocrine Endocrine: Absent: polyuria Hematologic/Lymphatic: Absent: easy bleeding, easy bruising Results - Labs CBC & BMP: 02/27/17 03:09 02/27/17 03:09 Lab Results: I have reviewed the past 24 hour labs
[2017-02-27] MEDS: MORPHINE 2 MG/1 ML SYRINGE IV PRN ×2 (09:24→18:53)
[2017-02-28] MEDS: DEXTROSE 5% NACL 0.9% 1,000 ML IV SCH ×3 (00:31→17:40)
[2017-02-28] MEDS: MORPHINE 2 MG/1 ML SYRINGE IV PRN ×3 (05:14→20:38)
[2017-02-28] MEDS: ENOXAPARIN 40 MG/0.4 ML SYRINGE SUBCUT SCH (09:39)
[2017-02-28] MEDS: PANTOPRAZOLE 40 MG TABLET PO SCH (09:39)
--- NOTE | 2017-02-28 10:22 | General Surgery Progress Note ---
Assessment and Plan (1) Dehydration Status: Acute Assessment and plan: I think that she is probably had inadequate p.o. intake in relation to output from her fistula. She feels better already with IV fluids she has had some low- grade temperature but a normal white blood cell count. I think once her renal function is better we can look at CT scan of her abdomen. The major problem with her is the fact that she has an atonic colon with obstipation most likely related to a long history of laxative abuse and chronic constipation. This likely contributed to her having an anastomotic leak she still is not having bowel movements. We could look at starting this with a gastric bladder graft and enema and this may be therapeutic as well. I do not expect her fistula to close until she is having no further obstructive symptoms from her colon. 02/28: Her dehydration appears to have resolved. 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 We will obtain a CT scan of her abdomen to further evaluate this. There is a large amount of stool still in her colon we may look at doing a Gastrografin enema. Current Visit: Yes Subjective Patient reports: Present: feels better, pain is less. Absent: nausea, vomiting , fever Exam - Constitutional Vitals: Period Temp Pulse Resp BP Sys/Sow Pulse Ox Last 24 Hr 97.9 F-100.4 F 62-76 16-18 100-136/50-65 92-96 General appearance: no acute distress - Respiratory Respiratory exam: Absent: accessory muscle use - GI/Abdominal GI/Abdominal exam: Present: soft. Absent: distended, tenderness, rebound Results - Labs CBC & BMP: 02/27/17 03:09 02/27/17 03:09 Lab Results: I have reviewed the past 24 hour labs
[2017-02-28 11:15] LABS: Basophils % 0.4 % (0.0-0.8); Eosinophils % 0.8 % (0.00-10.9); Hematocrit 27.9 VOL% (35.7-47.0); Hemoglobin 8.9 GM/DL (12.0-16.0); Immature Granulocytes % 0.6 %; Immature Granulocytes Absolute 0.03 #; Lymphocytes # 1.2 10*3/uL (1.4-4.0); Lymphocytes % 23.5 % (21.3-54.2); Mean Corpuscular HGB Conc 31.9 GM/DL (32-36); Mean Corpuscular Hemoglobin 29 PG (27-34); Mean Corpuscular Volume 92.1 FL (87-102); Mean Platelet Volume 9.2 FL (9.6-12.0); Monocytes # 0.7 10*3/uL (0.11-0.8); Monocytes % 13.9 % (1.7-12.7); Neutrophils # 3.1 10*3/uL (1.4-7.4); Neutrophils % 60.8 % (38.7-73.9); Platelet Count 275 T/CUMM (130-400); Red Blood Count 3.03 MC/CUMM (3.8-5.5); Red Cell Distribution Width 13.5 % (9.3-17.3)
[2017-02-28 11:47] LABS: Alanine Aminotransferase 20 U/L (13-56); Albumin 1.8 G/DL (3.4-5.0); Alkaline Phosphatase 115 U/L (45-117); Aspartate Amino Transferase 12 U/L (0-37); Bilirubin,Total < 0.39 MG/DL (0.2-1.0); Blood Urea Nitrogen 5 MG/DL (7-18); Calcium 7.7 MG/DL (8.5-10.1); Glucose 112 MG/DL (74-106); Osmolality,Calculated 272.7 MOS/KG (273-304); Potassium 3.5 MMOL/L (3.5-5.1); Sodium 138 MMOL/L (136-145); Total Protein 4.7 G/DL (6.4-8.3)
[2017-02-28 11:50] LABS: Band Neutrophils 7 % (0-10); Eosinophils 1 % (0-10); Hypochromasia 1+; Lymphocytes 25 % (20-55); Segmented Neutrophils 56 % (50-85); Total Cells Counted 100
[2017-02-28 11:51] LABS: Microcytosis 1+; Platelet Estimate Normal
--- NOTE | 2017-02-28 17:48 | CT Report ---
History: enterocutaneous fistula. History of colon cancer Date: 02/28/2017 Study: CT abdomen and pelvis with IV contrast Comparison exam: February 14, [address] abdomen and pelvis The CT exam was performed using one or more of the following dose reduction techniques: Automated exposure control, adjustment of the mA and/or kV according to patient size, or use of iterative reconstruction technique. Technique: Spiral CT sections were obtained from the lung bases to the pubic symphysis following 100 mL Omnip[address] abdomen: There is trace left pleural effusion. There is mild subsegmental atelectasis in the lung bases. There is mild diffuse fatty infiltration of the liver. The gallbladder is surgically absent. The liver, spleen, pancreas, adrenal glands, and bile ducts are unremarkable. There is bilateral renal excretion without hydronephrosis. There is no solid enhancing renal mass. There is 3.6 cm left renal cyst which is simple in nature. There is moderate calcification of the abdominal aorta. The previous percutaneous pigtail drainage catheter has been removed from the right anterior lateral peritoneal pocket, presumably residual abscess, which communicates with colon and right mid abdominal cutaneous fistula. The residual abscess pocket measures 10 x 8 x 3 cm and contains oral contrast, but has decreased in size since the drainage procedure CT from February 14, 2017. There is no nilesh bowel obstruction. CT pelvis: There is no new pelvic mass or abnormal pelvic fluid collection. Impression: There is a persistent peritoneal abscess pocket in the anterior right lateral mid to upper abdomen which communicates with the skin surface and the colon. This contains oral contrast. The previous percutaneous drainage catheter has been removed since February 14, 2017. Drainage bag overlies the fistula site. No significant interval change otherwise PROCEDURE INTERPRETED AT [facility] DEPARTMENT OF RADIOLOGY Final Report Signed by: Dr. Emmie Anderson
[2017-03-01] MEDS: DEXTROSE 5% NACL 0.9% 1,000 ML IV SCH ×3 (00:56→22:45)
[2017-03-01] MEDS: MORPHINE 2 MG/1 ML SYRINGE IV PRN ×2 (00:57→17:12)
--- NOTE | 2017-03-01 09:49 | General Surgery Progress Note ---
Assessment and Plan (1) Dehydration Status: Acute Assessment and plan: I think that she is probably had inadequate p.o. intake in relation to output from her fistula. She feels better already with IV fluids she has had some low- grade temperature but a normal white blood cell count. I think once her renal function is better we can look at CT scan of her abdomen. The major problem with her is the fact that she has an atonic colon with obstipation most likely related to a long history of laxative abuse and chronic constipation. This likely contributed to her having an anastomotic leak she still is not having bowel movements. We could look at starting this with a gastric bladder graft and enema and this may be therapeutic as well. I do not expect her fistula to close until she is having no further obstructive symptoms from her colon. 02/28: Her dehydration appears to have resolved. 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 We will obtain a CT scan of her abdomen to further evaluate this. There is a large amount of stool still in her colon we may look at doing a Gastrografin enema. 03/01: She feels better. I reviewed her CT scan and this shows still a collection in the right side of her abdomen. 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 This is smaller and flatter than before. I think part of the problem is is that the drain site is probably about 10 cm superior to the actual source of the drainage at the anastomosis. I had a long discussion with the patient and the family. We are dealing with several issues that are limiting us. First is that she has a large dilated chronically atonic colon. This actually looks better than it did before and is smaller. There is contrast in this colon. Her colon is dilated the transverse colon but not in the descending colon. At some point I may want to do a Gastrografin enema to evaluate for any source of obstruction distal to her anastomosis. More immediately I think that we need to get drainage further of this abscess cavity. We need to drain this more inferiorly closer to her anastomosis. This should be able to be fairly easily accomplished and probably will result in closure of the upper site. We discussed the procedure and risks in detail and they wish to proceed today. The next issue is nutrition. She is simply not going to take enough p.o. to get adequate nutrition. I think we need to look at PEG tube placement. I will discuss this with Dr. Anderson. Current Visit: Yes Subjective Patient reports: Present: feels better, nausea. Absent: still having pain, vomiting, shortness of breath Exam - Constitutional Vitals: Period Temp Pulse Resp BP Sys/Sow Pulse Ox Last 24 Hr 98.0 F-99.1 F 67-79 17-20 122-143/52-67 92-96 General appearance: no acute distress - Head Head exam: Present: normocephalic - Eye Eye exam: Absent: scleral icterus - Respiratory Respiratory exam: Absent: accessory muscle use - GI/Abdominal GI/Abdominal exam: Present: soft. Absent: distended, tenderness, rebound - Neurological Exam Neurological exam: Present: alert, oriented X3 Results - Labs CBC & BMP: 02/28/17 10:59 02/28/17 10:59 Lab Results: I have reviewed the past 24 hour labs - Diagnostic Findings Procedure: CT Abdomen and Pelvis: image reviewed by me, report reviewed by me
[2017-03-01] MEDS: PANTOPRAZOLE 40 MG TABLET PO SCH (10:39)
[2017-03-01] MEDS: ENOXAPARIN 40 MG/0.4 ML SYRINGE SUBCUT SCH (10:39)
[2017-03-01] MEDS ORDERED: BUPIVACAINE MPF 0.25% /EPI 30 ML VIAL ONE (13:05)
[2017-03-01] MEDS ORDERED: LIDOCAINE 1%/EPI INJ 20 ML VIAL ONE (13:05)
--- NOTE | 2017-03-01 15:06 | Operative Note ---
Date of procedure: 03/01/17 Pre-op diagnosis: Enterocutaneous fistula with intra-abdominal abscess Post-op diagnosis: same Procedure: #1 closure of enterocutaneous fistula 2. Drainage of right sided abdominal wall intra-abdominal abscess Findings and technique: After informed consent was obtained the patient was brought the operating room and placed in supine position. After IV sedation was administered the patient's abdomen was prepped and draped in usual sterile fashion. Local anesthesia was infiltrated. This was infiltrated in the right lower quadrant. I placed a gloved finger and her drain site opening in her right upper quadrant and traced this down within the abscess cavity to the right lower quadrant where I have made an incision over my fingertip and carefully dissected down layer by layer into the abscess cavity. This could be at the very inferior aspect of the abscess cavity along the right flank. Upon entering this abscess cavity was actually less granulation tissue than expected and there was visible bowel within the radial wall of the abscess cavity. I could see an opening into the bowel which I assumed was the anastomosis. I could not see benja. I sutured this closed. I realized that this was unlikely to permanently close her fistula but since it was immediately visible in the base of the abscess I freed up the edges and closed this with interrupted 3-0 Vicryl Lembert sutures. This defect was about 1 x 2 cm in size. I had complete closure of this and then coated it with Tisseel tissue sealant. Placed an ostomy bag on both openings. She appeared to tolerate the procedure well under sedation and local anesthesia. Anesthesia: MAC, local Surgeon / Physician: Nikolas Meeks III. Estimated blood loss: minimal Specimens: none sent Condition: stable Disposition: PACU Results - Labs CBC & BMP: 02/28/17 10:59 02/28/17 10:59 Discharge Plan - Discharge Medications No Action Clorazepate Dipotassium 7.5 mg PO TID Atorvastatin [Lipitor] 40 mg PO DAILY Levothyroxine Tab [Synthroid Tab] 50 mcg PO DAILY Citalopram [CeleXA] 40 mg PO DAILY Bisoprolol/Hctz 2.5-6.25 [Ziac 2.5-6.25] 1 tablet PO DAILY Promethazine Tab [Phenergan Tab] 25 mg PO Q6H PRN PRN Reason: Nausea Omeprazole 20 mg PO DAILY hydrOXYzine HCl [Hydroxyzine HCl] 25 mg PO QID PRN PRN Reason: Allergy Symptoms Fluticasone Propionate [Fluticasone 50 mcg Nasal [place]] 1 spray BOTH NARES DAILY Hydrocodone/Acetaminophen [Hydrocodon-Acetaminophen 5-325] 1 each PO Q6H PRN #30 tablet PRN Reason: Pain Moderate To Severe (4-10) Lactose-Reduced Food [Ensure Original] 237 ml PO TID #90 liquid Oxybutynin [Ditropan] 5 mg PO BID Albuterol Inhaler [Proventil Inhaler] 2 puff INH Q6H PRN PRN Reason: Shortness Of Breath/Wheezing Temazepam [Restoril] 30 mg PO BEDTIME PRN PRN Reason: Sleep - Follow Up or Referral - Forms/Instructions
--- NOTE | 2017-03-01 15:23 | Anesthesia Post-Op ---
Anesthesia Post OP - Post Ansesthetic Evaluation Patient seen in post op: Yes Resp: within normal limits CV: within normal limits Mental: within normal limits Temp: within normal limits [id number]: within normal limits Nausea and Vomiting: within normal limits Pain: within normal limits
[2017-03-01] MEDS ORDERED: fentaNYL 100 MCG/2 ML VIAL ONE (15:35)
[2017-03-01] MEDS ORDERED: PROPOFOL 200 MG/20 ML VIAL IV ONE (15:35)
[2017-03-01] MEDS ORDERED: MIDAZOLAM 2 MG/2 ML VIAL ONE (15:35)
[2017-03-01] MEDS ORDERED: KETAMINE 500 MG/10 ML VIAL ONE (15:36)
[2017-03-01] MEDS ORDERED: SODIUM CHLORIDE 0.9% 200 ML IV ONE (15:36)
[2017-03-01] MEDS: ONDANSETRON 4 MG/2 ML VIAL IV PRN (19:07)
[2017-03-02] MEDS: DEXTROSE 5% NACL 0.9% 1,000 ML IV SCH ×3 (02:36→18:50)
--- NOTE | 2017-03-02 07:01 | Event Note ---
I tried to suture closure of the fistula opening at the base of her abscess yesterday. As expected she continues to have drainage. Olin like this probably would not work but was worth a try. The are going to place a PEG tube today for nutritional support. All of these issues have been discussed in detail with her family.
--- NOTE | 2017-03-02 08:37 | Gastrointestinal Consult Note ---
Assessment and Plan (1) Colon cancer Status: Acute Assessment and plan: 03/02-status post right hemicolectomy last month with abscess formation and drainage on yesterday. Concerns with decreased nutritional intake. Discussion for PEG tube placement. Family and patient wished to proceed. This is scheduled for today. Plan an addendum to followed by Dr. Anderson. Current Visit: No History of Present Illness Chief complaint: Colon cancer/inadequate oral intake History of present illness: Ms. Westbrook is a 76 year old female who was admitted to the hospital on 02/27 with a history of recent right colectomy. Patient was diagnosed with colon cancer by Dr. Anderson with colonoscopy and endoscopic center in January of this year. She then was consulted by Dr. Meeks and on 02/04 she underwent a right hemicolectomy with ileocolic anastomosis and lysis of intra-abdominal adhesions. Following the surgery, she developed an an anastomotic leak and was treated with percutaneous drainage which was then followed by a repeat laparotomy for drainage of intra-abdominal abscess. 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 She was taken back to the OR on yesterday for closure of the fistula as well as drainage of the right abdominal wall abscess. Since diagnosis, nutrition has been an increasing concern for this patient with decreased oral intake since her initial surgery. She was only taking in minimal amounts of Ensure at home with very little solid intake. Her weight has remained essentially the same since prior to her initial surgery. Recommendation for PEG tube placement was discussed with family and patient and at this time they wish to proceed. Home Medications Medication Instructions Recorded Confirmed Type Atorvastatin [Lipitor] 40 mg PO DAILY 01/21/17 02/26/17 History Bisoprolol/Hctz 2.5-6.25 [Ziac 1 tablet PO DAILY 01/21/17 02/26/17 History 2.5-6.25] Citalopram [CeleXA] 40 mg PO DAILY 01/21/17 02/26/17 History Clorazepate Dipotassium 7.5 mg PO TID 01/21/17 02/26/17 History Levothyroxine Tab [Synthroid Tab] 50 mcg PO DAILY 01/21/17 02/26/17 History Oxybutynin [Ditropan] 5 mg PO BID 01/21/17 02/26/17 History Promethazine Tab [Phenergan Tab] 25 mg PO Q6H PRN 01/21/17 02/26/17 History Albuterol Inhaler [Proventil 2 puff INH Q6H PRN 02/04/17 02/26/17 History Inhaler] Fluticasone Propionate 1 spray BOTH NARES DAILY 02/04/17 02/26/17 History [Fluticasone 50 mcg Nasal [place]] Omeprazole 20 mg PO DAILY 02/04/17 02/26/17 History Temazepam [Restoril] 30 mg PO BEDTIME PRN 02/04/17 02/26/17 History hydrOXYzine HCl [Hydroxyzine HCl] 25 mg PO QID PRN 02/04/17 02/26/17 History Hydrocodone/Acetaminophen 1 each PO Q6H PRN #30 tablet 02/19/17 02/26/17 Rx [Hydrocodon-Acetaminophen 5-325] Lactose-Reduced Food [Ensure 237 ml PO TID #90 liquid 02/19/17 02/26/17 Rx Original] Allergies Allergy/AdvReac Type Severity Reaction Status Date / Time No Known Allergies Allergy Verified 01/21/17 09:17 Medical,Surgical,& Family Hx - Medical History Cardio: History of: Hypertension (MEDICATION) No history of: Cardiac Dysrhythmia, CHF, [place], Pacemaker, Valvular Heart Disease Psychological: History of: Anxiety Disorders (MEDICATION), Depression ( MEDICATION) Neurology: No history of: Brain Aneurysm, Migraine, Peripheral Neuropathy, Seizures HEENT: Comment Only: Dental Problems (UPPPER AND LOWER) Endocrine: History of: Dyslipidemia Rheumatology: History of;: Gout Respiratory: History of: Bronchitis, COPD No history of: Obstructive Sleep Apnea Comment Only: Respiratory Problems (HAD FLU VACCINE UP TO DATE ON PNUEMONIA) Genitourinary: History of: Bladder Problem (HAD BLADDER TACT WITH MESH), Recurring Urinary Tract Infections Gastrointestinal: History of: GERD, Polyps (HAD POLYPS REMOVED), GI Problems ( Chronic constipation) Musculoskeletal: History of: Musculoskeletal Problems (BURSITIS IN LEFT HIP) Hematology: No history of: Blood Transfusion Reaction Other: No history of: Anesthesia Reactions - Surgical History Cardiac Surgeries: Patient Denies: Cardiac Catheterization Neurologic Surgeries: Patient denies: Brain Aneurysm HEENT Surgeries: Surgical HX of: Eye Surgery (BILATERAL CATARACT SURGERY) Abdominal Surgeries: Surgical HX of: Appendectomy, Cholecystectomy, Colonoscopy (REMOVED 9 INCHES OF COLON) Reproductive Surgeries: Surgical HX of;: Hysterectomy Orthopedic Surgeries: Surgical HX of;: Total Knee Replacement (LEFT KNEE REPLACEMENT) - Family History Family History: Reports;: Family Stroke (MOTHER) - Social History Smoking Status: Current every day smoker Frequency of Alcohol Use: None Type of Drug Use: None 12 point system: reviewed and no additional remarkable complaints except as stated - Constitutional Constitutional: Present: as per HPI - EENT Eyes: Present: as per HPI Ears: Present: as per HPI Nose, mouth and throat: Present: as per HPI - Cardiovascular Cardiovascular: Present: as per HPI - Respiratory Respiratory: Present: as per HPI - Gastrointestinal Gastrointestinal: Present: as per HPI, abdominal pain - Genitourinary Genitourinary: Present: as per HPI - Musculoskeletal Musculoskeletal: Present: as per HPI - Neurological Neurological: Present: as per HPI - Psychiatric Psychiatric: Present: as per HPI - Endocrine Endocrine: Present: as per HPI - Hematologic/Lymphatic Hematologic/Lymphatic: Present: as per HPI Exam - Constitutional Vitals: Period Temp Pulse Resp BP Sys/Sow Pulse Ox Last 24 Hr 97.1 F-99.6 F 63-99 16-20 114-168/48-79 93-100 General appearance: normal weight, no acute distress - Head Head exam: Present: normal inspection, normocephalic - Eye Eye exam: Present: other (Lids and conjunctivae are unremarkable). Absent: scleral icterus - ENT ENT exam: Present: normal exam, normal oropharynx - Neck Neck exam: Present: normal inspection - Respiratory Respiratory exam: Present: clear to auscultation bilaterally. Absent: rales, rhonchi, wheezes - Cardiovascular Cardiovascular exam: Present: regular rate and rhythm. Absent: diastolic murmur , JVD, systolic murmur - GI/Abdominal GI/Abdominal exam: Present: hypoactive bowel sounds, tenderness, soft. Absent: ascites, distended, mass, organomegaly - Extremities Exam Extremities exam: Present: normal inspection, full ROM - Back Exam Back exam: Present: normal inspection - Neurological Exam Neurological exam: Present: alert, oriented X3 - Psychiatric Psychiatric exam: Present: normal affect, normal mood - Skin Skin exam: Present: normal color, warm, dry Results - Labs CBC & BMP: 02/28/17 10:59 02/28/17 10:59 Lab Results: I have reviewed the past 24 hour labs
[2017-03-02] MEDS: PANTOPRAZOLE 40 MG TABLET PO SCH (09:08)
[2017-03-02] MEDS: ENOXAPARIN 40 MG/0.4 ML SYRINGE SUBCUT SCH (09:08)
[2017-03-02 09:17] LABS: Basophils # 0.1 10*3/uL (0.0-0.2); Basophils % 0.3 % (0.0-0.8); Hematocrit 30.5 VOL% (35.7-47.0); Hemoglobin 10.1 GM/DL (12.0-16.0); Immature Granulocytes % 1.1 %; Immature Granulocytes Absolute 0.21 #; Lymphocytes # 0.8 10*3/uL (1.4-4.0); Lymphocytes % 4.2 % (21.3-54.2); Mean Corpuscular HGB Conc 33.1 GM/DL (32-36); Mean Corpuscular Hemoglobin 30 PG (27-34); Mean Corpuscular Volume 89.2 FL (87-102); Mean Platelet Volume 9.6 FL (9.6-12.0); Monocytes # 1.3 10*3/uL (0.11-0.8); Monocytes % 6.5 % (1.7-12.7); Neutrophils # 17.5 10*3/uL (1.4-7.4); Neutrophils % 87.9 % (38.7-73.9); Platelet Count 273 T/CUMM (130-400); Red Blood Count 3.42 MC/CUMM (3.8-5.5); Red Cell Distribution Width 13.4 % (9.3-17.3); White Blood Count 19.9 T/CUMM (4-12)
[2017-03-02 09:25] LABS: INR 1.4
[2017-03-02 09:39] LABS: Band Neutrophils 11 % (0-10); Hypochromasia Slight; Lymphocytes 4 % (20-55); Microcytosis 1+; Segmented Neutrophils 77 % (50-85); Total Cells Counted 100
[2017-03-02 09:40] LABS: Platelet Estimate Normal
[2017-03-02 09:52] LABS: Calcium 8.1 MG/DL (8.5-10.1); Osmolality,Calculated 268.1 MOS/KG (273-304); Potassium 3.1 MMOL/L (3.5-5.1)
--- NOTE | 2017-03-02 10:23 | XRay Report ---
XR chest 1V portable Indication: Cough Comparison: 07 February 2017 Findings: The heart and mediastinum are normal in size and configuration. Catheter on the previous exam is been removed. The pulmonary vascularity is normal in caliber. No lung infiltrates, effusions, pneumothorax or other abnormality is demonstrated. Impression: No acute cardiopulmonary disease. PROCEDURE INTERPRETED AT [facility] DEPARTMENT OF RADIOLOGY Final Report Signed by: Dr. Vinny Flores
[2017-03-02] MEDS ORDERED: LIDOCAINE 2% 5 ML VIAL ONE (12:56)
[2017-03-02] MEDS ORDERED: PROPOFOL 200 MG/20 ML VIAL IV ONE (12:56)
[2017-03-02] MEDS ORDERED: ONDANSETRON 4 MG/2 ML VIAL ONE (12:56)
[2017-03-02] MEDS ORDERED: PHENYLEPHRINE 1 MG/10 ML SYRINGE IV ONE (12:56)
--- NOTE | 2017-03-02 13:16 | Anesthesia Post-Op ---
Anesthesia Post OP - Post Ansesthetic Evaluation Patient seen in post op: Yes Resp: within normal limits CV: within normal limits Mental: within normal limits Temp: within normal limits [id number]: within normal limits Nausea and Vomiting: within normal limits Pain: within normal limits
--- NOTE | 2017-03-02 13:18 | Event Note ---
Patient seen and examined. I was unable to edit Geeta Barnes's GI consult note today due to [employer] technical issues. Agree with findings from her note. 76-year-old female with recent right hemicolectomy for colon cancer has had failure to thrive since surgery with poor nutritional input. We are asked to place gastrostomy tube for nutritional support. Discussed with her including risks and benefits and she is agreeable to having this done.
--- NOTE | 2017-03-02 13:21 | Operative Note ---
Date of procedure: 03/02/17 Pre-op diagnosis: Inability to eat, protein calorie malnutrition Procedure: Procedure: Esophagogastroduodenoscopy with percutaneous endoscopic gastrostomy tube placement Brief clinical abstract: 76-year-old female has had poor nutritional status with inability to eat after recent right hemicolectomy for colon cancer. PEG tube is requested for nutritional support. Indication for procedure: Protein calorie malnutrition, inability to eat Endoscopic findings:[After informed consent was obtained, the patient was placed in the left lateral decubitus position. The gastroscope was inserted in the upper esophagus under direct vision with no resistance encountered. Esophageal mucosa appeared normal with squamocolumnar junction sharply demarcated above a small hiatal hernia. The endoscope was advanced in the stomach which was carefully examined including retroflexed view of the cardia and fundus with no abnormality seen. The pyloric channel, duodenal bulb, second and third portion of the duodenum appeared normal. The endoscope was withdrawn back in the stomach. Site for gastrostomy tube placement was selected using external indentation and endoscopic transillumination. Sterile field was created over the mid upper anterior abdomen at the site. 5 cc of 1% lidocaine was injected subcutaneously down to the gastric wall. An approximately 5 mm superficial transverse incision was made with scalpel. Then Cook 20 Frisian gastrostomy tube was placed with pull technique without difficulty. The tube was secured at the 2 cm mame at the skin surface. External bumper was applied at this level. A dressing was applied at the site afterwards. She appeared to tolerate the procedure well. Impression: #1 small hiatal hernia-otherwise normal EGD #2 status post successful PEG tube placement Recommendations: Dietary consult for tube feeding recommendations. Could start tomorrow morning if PEG site clear. Keep abdominal binder over her PEG site for at least 10 days. Anesthesia: MAC, local Surgeon / Physician: Reed Anderson Estimated blood loss: minimal Specimens: none sent Condition: stable Disposition: post procedure unit Results - Labs CBC & BMP: 03/02/17 08:33 03/02/17 08:33 Discharge Plan - Discharge Medications No Action Clorazepate Dipotassium 7.5 mg PO TID Atorvastatin [Lipitor] 40 mg PO DAILY Levothyroxine Tab [Synthroid Tab] 50 mcg PO DAILY Citalopram [CeleXA] 40 mg PO DAILY Bisoprolol/Hctz 2.5-6.25 [Ziac 2.5-6.25] 1 tablet PO DAILY Promethazine Tab [Phenergan Tab] 25 mg PO Q6H PRN PRN Reason: Nausea Omeprazole 20 mg PO DAILY hydrOXYzine HCl [Hydroxyzine HCl] 25 mg PO QID PRN PRN Reason: Allergy Symptoms Fluticasone Propionate [Fluticasone 50 mcg Nasal [place]] 1 spray BOTH NARES DAILY Hydrocodone/Acetaminophen [Hydrocodon-Acetaminophen 5-325] 1 each PO Q6H PRN #30 tablet PRN Reason: Pain Moderate To Severe (4-10) Lactose-Reduced Food [Ensure Original] 237 ml PO TID #90 liquid Oxybutynin [Ditropan] 5 mg PO BID Albuterol Inhaler [Proventil Inhaler] 2 puff INH Q6H PRN PRN Reason: Shortness Of Breath/Wheezing Temazepam [Restoril] 30 mg PO BEDTIME PRN PRN Reason: Sleep - Follow Up or Referral - Forms/Instructions
[2017-03-02] MEDS: POTASSIUM CHLORIDE RIDER 10 MEQ in PREMIX 1 EACH IV SCH ×4 (14:26→18:49)
[2017-03-02] MEDS: MORPHINE 2 MG/1 ML SYRINGE IV PRN (17:16)
[2017-03-02] MEDS: ONDANSETRON 4 MG/2 ML VIAL IV PRN (17:45)
[2017-03-03] MEDS: MORPHINE 2 MG/1 ML SYRINGE IV PRN ×5 (02:50→20:34)
[2017-03-03] MEDS: DEXTROSE 5% NACL 0.9% 1,000 ML IV SCH ×3 (03:35→16:00)
[2017-03-03 03:54] LABS: Basophils % 0.1 % (0.0-0.8); Eosinophils % 0.1 % (0.00-10.9); Hematocrit 26.9 VOL% (35.7-47.0); Hemoglobin 8.8 GM/DL (12.0-16.0); Immature Granulocytes % 1.4 %; Immature Granulocytes Absolute 0.19 #; Lymphocytes # 1.6 10*3/uL (1.4-4.0); Mean Corpuscular HGB Conc 32.7 GM/DL (32-36); Mean Corpuscular Hemoglobin 29 PG (27-34); Mean Platelet Volume 9.2 FL (9.6-12.0); Monocytes % 6.8 % (1.7-12.7); Neutrophils # 11.3 10*3/uL (1.4-7.4); Neutrophils % 80.6 % (38.7-73.9); Platelet Count 221 T/CUMM (130-400); Red Blood Count 2.99 MC/CUMM (3.8-5.5); Red Cell Distribution Width 13.8 % (9.3-17.3)
[2017-03-03 04:41] LABS: Magnesium 1.4 MG/DL (1.8-2.4); Phosphorous 3.1 MG/DL (2.5-4.9); Prealbumin 4.8 MG/DL (20-40)
[2017-03-03 05:14] LABS: Calcium 7.7 MG/DL (8.5-10.1); Potassium 3.8 MMOL/L (3.5-5.1)
[2017-03-03] MEDS: ONDANSETRON 4 MG/2 ML VIAL IV PRN (08:22)
--- NOTE | 2017-03-03 09:30 | Gastrointestinal Progress Note ---
Assessment and Plan (1) Colon cancer Status: Acute Assessment and plan: 03/03-Post PEG placement with no s/s of infection or bleeding. Tube feedings to be initiated after they arrive (difficulty obtaining ordered supplement). Plan and addendum to follow by Dr Anderson. 03/02-status post right hemicolectomy last month with abscess formation and drainage on yesterday. Concerns with decreased nutritional intake. Discussion for PEG tube placement. Family and patient wished to proceed. This is scheduled for today. Plan an addendum to followed by Dr. Anderson. Current Visit: No Gastroenterology - PN: Subj Interval history: CC: Inability to eat Patient is seen awake and alert lying in bed. States she is feeling fairly well today. She has continued abdominal tenderness postoperatively with mild tenderness at PEG site. Abdominal binder is intact. PEG is without drainage, redness. Tube feedings have been ordered however these are not scheduled to arrive for a couple of days per family. Overall she states she is feeling some better and she is taking in some oral nutrition in small amounts at this time. Abdomen is soft, tender to palpation. ROS: Denies SOB or chest pain Exam (Progress Note) - Constitutional Vitals: Period Temp Pulse Resp BP Sys/Sow Pulse Ox Last 24 Hr 97.0 F-98.5 F 80-102 16-20 103-155/47-73 94-100 - Other Additional findings: General appearance: normal weight, no acute distress - Head Head exam: Present: normal inspection, normocephalic - Eye Eye exam: Present: other (Lids and conjunctivae are unremarkable). Absent: scleral icterus - ENT ENT exam: Present: normal exam, normal oropharynx - Neck Neck exam: Present: normal inspection - Respiratory Respiratory exam: Present: clear to auscultation bilaterally. Absent: rales, rhonchi, wheezes - Cardiovascular Cardiovascular exam: Present: regular rate and rhythm. Absent: diastolic murmur , JVD, systolic murmur - GI/Abdominal GI/Abdominal exam: Present: hypoactive bowel sounds, tenderness, soft. Absent: ascites, distended, mass, organomegaly - Extremities Exam Extremities exam: Present: normal inspection, full ROM - Back Exam Back exam: Present: normal inspection - Neurological Exam Neurological exam: Present: alert, oriented X3 - Psychiatric Psychiatric exam: Present: normal affect, normal mood - Skin Skin exam: Present: normal color, warm, dry Results - Labs CBC & BMP: 03/03/17 03:30 03/03/17 03:30 Lab Results: I have reviewed the past 24 hour labs
[2017-03-03] MEDS: ENOXAPARIN 40 MG/0.4 ML SYRINGE SUBCUT SCH (10:21)
[2017-03-03] MEDS: PANTOPRAZOLE 40 MG TABLET PO SCH (10:30)
--- NOTE | 2017-03-03 12:11 | Physician Query Form ---
CLICK EDIT DOCUMENT TO SELECT QUERY ANSWER --> OK --> SIGN Criss Amanda RN, CCDS Certified Clinical Crating And Moving Estimator W) [phone] (f) [phone] [email or web address]: Make your selection(s) from the choices in EACH section by typing an "x" and enter comments in the comment section. Please use your independent medical judgment in providing your response. This request does not imply that any particular answer is desired or expected. CLINICAL INDICATORS: (Providers should not edit this section) The medical record indicates that the patient was admitted with dehydration, Urine CS on the is showing > 100,000 Gram Negative Rods, WBC of 19.9 and the patient is on Cefoxitin. Based on the above, could you clarify the appropriate diagnosis, if significant , that supports the above abnormalities and additional evaluation, monitoring, and/or treatment rendered: ( x) patient is being monitored or treated for UTI ( ) patient is not being monitored or treated for UTI ( ) Other, please specify: ( ) Clinically unable to determine COMMENTS: PLEASE ALSO DOCUMENT RESPONSE IN PROGRESS NOTES AND/OR DISCHARGE SUMMARY Use of terms such as suspected, likely, or probable (associated with a specific diagnosis that is being evaluated, monitored, or treated as if it exists) are acceptable and can be restated in the discharge summary if not ruled out. MTDD
--- NOTE | 2017-03-03 13:20 | Infectious Disease Consult ---
Assessment and Plan (1) Abdominal abscess Status: Acute Assessment and plan: Imaging studies shows that this abscess is persisting. It may be the cause of her leukocytosis. Recommendations: 1. Discontinue cefoxitin 2. Start linezolid 600 mg p.o. twice a day 3. Start Zosyn 3.375 g IV every 8 hours. This will cover the E. coli isolated last month as well as any anaerobes that are no doubt involved. 4. Follow-up results of blood cultures which I am progress Thank you very much for the consult. Will follow. Current Visit: No (2) Colon cancer Status: Acute Current Visit: No (3) Fistula Status: Acute Current Visit: No (4) UTI (urinary tract infection) Status: Acute Assessment and plan: E. coli cultured most of the times in the past, but latest culture last month was positive for Enterobacter. No associated UA on admission, unfortunately. Recommendations: Patient will be on Zosyn for abdominal abscess and this will cover her UTI. We will follow-up finalized urine culture result. Current Visit: Yes (5) Leukocytosis Status: Acute Assessment and plan: Suspect cause intra-abdominal abscess; we need to make sure there is no associated bloodstream infection. Recommendations: Antibiotic therapy as above Current Visit: Yes History of Present Illness Chief complaint: Leukocytosis History of present illness: Ms. Westbrook is a 76 year old female who had colectomy last month for colon cancer. 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 She also had an intra-abdominal abscess as well which culture positive for VRE and E. coli. I am not able to tell what antibiotic therapy she got after that time. She went home but says she has been doing poorly, very anorexic. Because of poorly state and lack of eating she came to the emergency room and was admitted. She says she has not had any fever or chills. She has mild abdominal pain but no nausea or vomiting or diarrhea. She has continuous drainage from her fistulas. She says she has urinary incontinence since having a bladder mesh taken out 3 years ago but denies dysuria and hematuria. She does have a history of recurring urinary tract infections. Leukocytosis noted since admission which has persisted and I am asked to assist with management. Home Medications Medication Instructions Recorded Confirmed Type Atorvastatin [Lipitor] 40 mg PO DAILY 01/21/17 02/26/17 History Bisoprolol/Hctz 2.5-6.25 [Ziac 1 tablet PO DAILY 01/21/17 02/26/17 History 2.5-6.25] Citalopram [CeleXA] 40 mg PO DAILY 01/21/17 02/26/17 History Clorazepate Dipotassium 7.5 mg PO TID 01/21/17 02/26/17 History Levothyroxine Tab [Synthroid Tab] 50 mcg PO DAILY 01/21/17 02/26/17 History Oxybutynin [Ditropan] 5 mg PO BID 01/21/17 02/26/17 History Promethazine Tab [Phenergan Tab] 25 mg PO Q6H PRN 01/21/17 02/26/17 History Albuterol Inhaler [Proventil 2 puff INH Q6H PRN 02/04/17 02/26/17 History Inhaler] Fluticasone Propionate 1 spray BOTH NARES DAILY 02/04/17 02/26/17 History [Fluticasone 50 mcg Nasal [place]] Omeprazole 20 mg PO DAILY 02/04/17 02/26/17 History Temazepam [Restoril] 30 mg PO BEDTIME PRN 02/04/17 02/26/17 History hydrOXYzine HCl [Hydroxyzine HCl] 25 mg PO QID PRN 02/04/17 02/26/17 History Hydrocodone/Acetaminophen 1 each PO Q6H PRN #30 tablet 02/19/17 02/26/17 Rx [Hydrocodon-Acetaminophen 5-325] Lactose-Reduced Food [Ensure 237 ml PO TID #90 liquid 02/19/17 02/26/17 Rx Original] Allergies Allergy/AdvReac Type Severity Reaction Status Date / Time No Known Allergies Allergy Verified 01/21/17 09:17 12 point system: reviewed and no additional remarkable complaints except as stated (Per HPI) Medical,Surgical,& Family Hx - Medical History Cardio: History of: Hypertension (MEDICATION) No history of: Cardiac Dysrhythmia, CHF, [place], Pacemaker, Valvular Heart Disease Psychological: History of: Anxiety Disorders (MEDICATION), Depression ( MEDICATION) Neurology: No history of: Brain Aneurysm, Migraine, Peripheral Neuropathy, Seizures HEENT: Comment Only: Dental Problems (UPPPER AND LOWER) Endocrine: History of: Dyslipidemia Rheumatology: History of;: Gout Respiratory: History of: Bronchitis, COPD No history of: Obstructive Sleep Apnea Comment Only: Respiratory Problems (HAD FLU VACCINE UP TO DATE ON PNUEMONIA) Genitourinary: History of: Bladder Problem (HAD BLADDER TACT WITH MESH), Recurring Urinary Tract Infections Gastrointestinal: History of: GERD, Polyps (HAD POLYPS REMOVED), GI Problems ( Chronic constipation) Musculoskeletal: History of: Musculoskeletal Problems (BURSITIS IN LEFT HIP) Hematology: No history of: Blood Transfusion Reaction Other: No history of: Anesthesia Reactions - Surgical History Cardiac Surgeries: Patient Denies: Cardiac Catheterization Neurologic Surgeries: Patient denies: Brain Aneurysm HEENT Surgeries: Surgical HX of: Eye Surgery (BILATERAL CATARACT SURGERY) Abdominal Surgeries: Surgical HX of: Appendectomy, Cholecystectomy, Colonoscopy (REMOVED 9 INCHES OF COLON) Reproductive Surgeries: Surgical HX of;: Hysterectomy Orthopedic Surgeries: Surgical HX of;: Total Knee Replacement (LEFT KNEE REPLACEMENT) - Family History Family History: Reports;: Family Stroke (MOTHER) - Social History Smoking Status: Current every day smoker Frequency of Alcohol Use: None Type of Drug Use: None Infectious Disease Exam H&P - Constitutional Vitals: Vital Signs Temp Pulse Resp BP Pulse Ox 98.2 F 78 18 120/63 98 03/03/17 11:30 03/03/17 11:30 03/03/17 11:30 03/03/17 11:30 03/03/17 11:30 Intake and Output 03/02/17 03/03/17 03/03/17 23:59 07:59 15:59 Intake Total 1660 / 1660 1220 / 1220 1440 / 1440 Output Total 1255 / 1255 500 / 500 0 / 0 Balance 405 / 405 720 / 720 1440 / 1440 Intake: IV 1300 / 1300 1100 / 1100 1200 / 1200 D5 Ns 1,000 ml @ 125 mls/ 1000 / 1000 1000 / 1000 1000 / 1000 hr IV .Q8H IJEOMA Rx#: [id number] Potassium Chloride Go 300 / 300 10 Meq/100 ml In Premix 1 Each @ 100 mls/hr IV Q1H IJEOMA Rx#:[id number] Mefoxin 2,000 mg In Ns 100 / 100 200 / 200 100 ml @ 200 mls/hr IV Q6H IJEOMA Rx#:[id number] Oral 360 / 360 120 / 120 240 / 240 Output: Urine 355 / 355 0 / 0 Stool 900 / 900 500 / 500 Other: Voiding Method Bedpan Brief # Voids 2 # Bowel Movements 0 Exam: General: Patient relatively comfortable, nontoxic appearing, was about to eat lunch HEENT: Mucous membranes pink and moist, anicteric acyanotic, MARTIN, no oropharyngeal exudates Neck: Supple, no thyroid gland enlargement Respiratory system: Breath sounds vesicular, no crepitations or wheezes Cardiovascular: Normal S1 and S2, no murmurs appreciated Abdomen: PEG tube in situ [placed yesterday], 2 ostomies noted to right side of abdomen with greenish brown stool, normal bowel sounds, soft mildly tender about PEG site, no organomegaly or mass appreciated Genitourinary: No suprapubic pain or bladder distention Extremities: no edema Skin: No rash Reports - Labs CBC & BMP: 03/03/17 03:30 03/03/17 03:30 Labs: Laboratory Results - last 24 hr 03/03/17 03/03/17 03/03/17 03:30 03:30 03:30 WBC 14.0 H RBC 2.99 L Hgb 8.8 L Hct 26.9 L MCV 90.0 MCH 29 MCHC 32.7 RDW 13.8 Plt Count 221 MPV 9.2 L Neut % (Auto) 80.6 H Lymph % (Auto) 11.0 L [place] % (Auto) 6.8 Eos % (Auto) 0.1 Baso % (Auto) 0.1 Neut # (Auto) 11.3 H Lymph # (Auto) 1.6 [place] # (Auto) 1.0 H Eos # (Auto) 0.0 Baso # (Auto) 0.0 Immature Gran % 1.4 Nucleated RBC % 0.0 Immature Gran # 0.19 Nucleated RBCs # 0.00 Immature Plt Fraction 0.0 Sodium 136 Potassium 3.8 Chloride 102 Carbon Dioxide 26 Anion Gap 11.8 BUN 8 Creatinine 0.70 GFR Calculation 83 BUN/Creatinine Ratio 11.00 Glucose 144 H Calculated Osmolality 272.0 L Calcium 7.7 L Phosphorus 3.1 Magnesium 1.4 L Prealbumin 4.8 L - Reports Microbiology: Microbiology 03/02/17 Unknown Urine Culture - Preliminary Urine,In and Out Cath Gram Negative Rods 03/02/17 10:00 Blood Culture - Preliminary Blood No growth at 1 day 03/02/17 10:00 Blood Culture - Preliminary Blood No growth at 1 day - Diagnostic Findings Procedure: CT Abdomen and Pelvis: report reviewed by me (Abscess to right side of abdomen)
--- NOTE | 2017-03-03 14:55 | General Surgery Progress Note ---
Assessment and Plan (1) Dehydration Status: Acute Assessment and plan: I think that she is probably had inadequate p.o. intake in relation to output from her fistula. She feels better already with IV fluids she has had some low- grade temperature but a normal white blood cell count. I think once her renal function is better we can look at CT scan of her abdomen. The major problem with her is the fact that she has an atonic colon with obstipation most likely related to a long history of laxative abuse and chronic constipation. This likely contributed to her having an anastomotic leak she still is not having bowel movements. We could look at starting this with a gastric bladder graft and enema and this may be therapeutic as well. I do not expect her fistula to close until she is having no further obstructive symptoms from her colon. 02/28: Her dehydration appears to have resolved. 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 We will obtain a CT scan of her abdomen to further evaluate this. There is a large amount of stool still in her colon we may look at doing a Gastrografin enema. 03/01: She feels better. I reviewed her CT scan and this shows still a collection in the right side of her abdomen. 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 This is smaller and flatter than before. I think part of the problem is is that the drain site is probably about 10 cm superior to the actual source of the drainage at the anastomosis. I had a long discussion with the patient and the family. We are dealing with several issues that are limiting us. First is that she has a large dilated chronically atonic colon. This actually looks better than it did before and is smaller. There is contrast in this colon. Her colon is dilated the transverse colon but not in the descending colon. At some point I may want to do a Gastrografin enema to evaluate for any source of obstruction distal to her anastomosis. More immediately I think that we need to get drainage further of this abscess cavity. We need to drain this more inferiorly closer to her anastomosis. This should be able to be fairly easily accomplished and probably will result in closure of the upper site. We discussed the procedure and risks in detail and they wish to proceed today. The next issue is nutrition. She is simply not going to take enough p.o. to get adequate nutrition. I think we need to look at PEG tube placement. I will discuss this with Dr. Anderson. 03/03: I did see the patient yesterday but somehow did not put a note in the computer system. She feels better. She did have a PEG tube placed and we are starting enteral feedings. We will see how this affects her output from her fistula. Overall she is doing okay but she is malnourished and this will hinder closure of her fistula. She has gram-negative rods in her urine as well as resistant enterococcus in her abscess cavity. We will consult infectious diseases. Current Visit: Yes Subjective Patient reports: Present: feels better, pain is less. Absent: nausea, vomiting , shortness of breath, fever Exam - Constitutional Vitals: Period Temp Pulse Resp BP Sys/Sow Pulse Ox Last 24 Hr 97.0 F-98.5 F 78-102 17-20 114-155/47-73 94-100 General appearance: no acute distress - Respiratory Respiratory exam: Absent: accessory muscle use - GI/Abdominal GI/Abdominal exam: Present: soft. Absent: distended, tenderness, rebound Results - Labs CBC & BMP: 03/03/17 03:30 03/03/17 03:30 Lab Results: I have reviewed the past 24 hour labs
[2017-03-03] MEDS: PIPERACILLIN/TAZOBACTAM 3,375 MG in SODIUM CHLORIDE 0.9% 100 ML IV SCH ×2 (15:58→20:34)
[2017-03-03] MEDS: LINEZOLID 600 MG TABLET PO SCH (18:27)
[2017-03-04] MEDS: PIPERACILLIN/TAZOBACTAM 3,375 MG in SODIUM CHLORIDE 0.9% 100 ML IV SCH ×3 (05:28→20:45)
[2017-03-04] MEDS: DEXTROSE 5% NACL 0.9% 1,000 ML IV SCH (05:28)
[2017-03-04 05:57] LABS: Basophils % 0.1 % (0.0-0.8); Eosinophils # 0.1 10*3/uL (0.0-0.87); Eosinophils % 1.1 % (0.00-10.9); Hematocrit 23.8 VOL% (35.7-47.0); Hemoglobin 7.5 GM/DL (12.0-16.0); Immature Granulocytes % 1.2 %; Lymphocytes # 1.1 10*3/uL (1.4-4.0); Lymphocytes % 13.7 % (21.3-54.2); Mean Corpuscular HGB Conc 31.5 GM/DL (32-36); Mean Corpuscular Hemoglobin 30 PG (27-34); Mean Corpuscular Volume 93.7 FL (87-102); Mean Platelet Volume 9.5 FL (9.6-12.0); Monocytes # 0.5 10*3/uL (0.11-0.8); Monocytes % 5.9 % (1.7-12.7); Neutrophils # 6.3 10*3/uL (1.4-7.4); Platelet Count 193 T/CUMM (130-400); Red Blood Count 2.54 MC/CUMM (3.8-5.5)
[2017-03-04] MEDS: LINEZOLID 600 MG TABLET PO SCH ×2 (06:20→18:39)
[2017-03-04 06:21] LABS: Band Neutrophils 6 % (0-10); Eosinophils 3 % (0-10); Hypochromasia 1+; Lymphocytes 13 % (20-55); Promyelocytes 1 %; Segmented Neutrophils 72 % (50-85); Total Cells Counted 100
[2017-03-04 06:22] LABS: Microcytosis 1+; Ovalocytes Slight; Platelet Estimate Adequate
--- NOTE | 2017-03-04 06:35 | General Surgery Progress Note ---
Assessment and Plan (1) Dehydration Status: Acute Assessment and plan: I think that she is probably had inadequate p.o. intake in relation to output from her fistula. She feels better already with IV fluids she has had some low- grade temperature but a normal white blood cell count. I think once her renal function is better we can look at CT scan of her abdomen. The major problem with her is the fact that she has an atonic colon with obstipation most likely related to a long history of laxative abuse and chronic constipation. This likely contributed to her having an anastomotic leak she still is not having bowel movements. We could look at starting this with a gastric bladder graft and enema and this may be therapeutic as well. I do not expect her fistula to close until she is having no further obstructive symptoms from her colon. 02/28: Her dehydration appears to have resolved. 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 We will obtain a CT scan of her abdomen to further evaluate this. There is a large amount of stool still in her colon we may look at doing a Gastrografin enema. 03/01: She feels better. I reviewed her CT scan and this shows still a collection in the right side of her abdomen. 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 This is smaller and flatter than before. I think part of the problem is is that the drain site is probably about 10 cm superior to the actual source of the drainage at the anastomosis. I had a long discussion with the patient and the family. We are dealing with several issues that are limiting us. First is that she has a large dilated chronically atonic colon. This actually looks better than it did before and is smaller. There is contrast in this colon. Her colon is dilated the transverse colon but not in the descending colon. At some point I may want to do a Gastrografin enema to evaluate for any source of obstruction distal to her anastomosis. More immediately I think that we need to get drainage further of this abscess cavity. We need to drain this more inferiorly closer to her anastomosis. This should be able to be fairly easily accomplished and probably will result in closure of the upper site. We discussed the procedure and risks in detail and they wish to proceed today. The next issue is nutrition. She is simply not going to take enough p.o. to get adequate nutrition. I think we need to look at PEG tube placement. I will discuss this with Dr. Anderson. 03/03: I did see the patient yesterday but somehow did not put a note in the computer system. She feels better. She did have a PEG tube placed and we are starting enteral feedings. We will see how this affects her output from her fistula. Overall she is doing okay but she is malnourished and this will hinder closure of her fistula. She has gram-negative rods in her urine as well as resistant enterococcus in her abscess cavity. We will consult infectious diseases. 03/04: She is tolerating her tube feeds. She has more output from her fistula. We will need to keep an eye on her fluids and electrolytes. This is no longer a low output fistula. I am glad to see that her white blood cell count has come down to normal. Hopefully as we improve her nutrition we will have a better chance of having her fistula closed. Also with a better nutritional state that we need to do surgery she would be a much better position to tolerate it. Current Visit: Yes Subjective Patient reports: Present: feels better, pain is less. Absent: nausea, vomiting , shortness of breath, fever Exam - Constitutional Vitals: Period Temp Pulse Resp BP Sys/Sow Pulse Ox Last 24 Hr 97.0 F-98.2 F 69-80 18-20 91-120/46-64 98-100 General appearance: no acute distress - Respiratory Respiratory exam: Present: clear to auscultation bilaterally. Absent: accessory muscle use - Cardiovascular Cardiovascular exam: Present: RRR - GI/Abdominal GI/Abdominal exam: Present: soft. Absent: distended, guarding, tenderness, rebound - Neurological Exam Neurological exam: Present: alert, oriented X3 Results - Labs CBC & BMP: 03/04/17 03:40 03/03/17 03:30 Lab Results: I have reviewed the past 24 hour labs
[2017-03-04] MEDS: MORPHINE 2 MG/1 ML SYRINGE IV PRN ×3 (09:38→20:45)
[2017-03-04] MEDS: ENOXAPARIN 40 MG/0.4 ML SYRINGE SUBCUT SCH (09:43)
[2017-03-04] MEDS: PANTOPRAZOLE 40 MG TABLET PO SCH (09:47)
[2017-03-04] MEDS: ZINC OXIDE PASTE 113 GM TUBE TOP SCH ×2 (12:45→20:45)
--- NOTE | 2017-03-04 16:13 | Infectious Disease Progress ---
Assessment and Plan (1) Abdominal abscess Status: Acute Assessment and plan: Imaging studies shows that this abscess is persisting. Leukocytosis resolved today, not sure if is from the antibiotic started yesterday.. Recommendations: 1. Continue linezolid and Zosyn 2. Follow-up results of blood cultures which I am progress Discussed with at bedside Current Visit: No (2) Colon cancer Status: Acute Current Visit: No (3) Fistula Status: Acute Current Visit: No (4) UTI (urinary tract infection) Status: Acute Assessment and plan: E. coli once again this time. Sensitive to the Zosyn that she is on. Current Visit: Yes (5) Leukocytosis Status: Acute Assessment and plan: Suspect cause intra-abdominal abscess; we need to make sure there is no associated bloodstream infection. Leukocytosis resolved today. Current Visit: Yes Infectious Disease - PN: Subj Interval history: Patient feeling a bit out of sorts today but could not specify what was wrong. She has not had any fever. So far seems to be tolerating antibiotics, no nausea vomiting or diarrhea. She still quite anorexic. Infectious Disease Exam (PN) - Constitutional Vitals: Temp Pulse Resp BP Pulse Ox 98.2 F 73 18 103/50 98 03/04/17 11:58 03/04/17 11:58 03/04/17 11:58 03/04/17 11:58 03/04/17 11:58 General appearance: no acute distress Exam: General appearance: no acute distress but chronically ill looking - Eye Eye exam: Present: EOMI. no icterus Pupils: Present: MARTIN - ENT ENT exam: no oral exudates - Respiratory Respiratory exam: vesicular BS, no crepitations or wheezes - Cardiovascular Cardiovascular exam: regular rate and rhythm, no murmurs - GI/Abdominal GI/Abdominal exam: Ostomy is noted with significant output of stool, PEG present with mild surrounding tenderness, normal bowel sounds, soft, no organomegaly or mass - Extremities Exam Extremities exam: no edema - Skin Skin exam: no rash Results - Labs CBC & BMP: 03/04/17 03:40 03/03/17 03:30 Lab Results: I have reviewed the past 24 hour labs
[2017-03-05] MEDS: DEXTROSE 5% NACL 0.9% 1,000 ML IV SCH ×5 (01:05→18:10)
[2017-03-05] MEDS: MORPHINE 2 MG/1 ML SYRINGE IV PRN ×3 (05:28→23:04)
[2017-03-05] MEDS: LINEZOLID 600 MG TABLET PO SCH ×2 (05:29→18:09)
[2017-03-05] MEDS: PIPERACILLIN/TAZOBACTAM 3,375 MG in SODIUM CHLORIDE 0.9% 100 ML IV SCH ×3 (05:29→21:13)
[2017-03-05 06:29] LABS: Basophils % 0.4 % (0.0-0.8); Eosinophils # 0.1 10*3/uL (0.0-0.87); Eosinophils % 1.2 % (0.00-10.9); Hematocrit 27.1 VOL% (35.7-47.0); Hemoglobin 8.6 GM/DL (12.0-16.0); Immature Granulocytes % 2.2 %; Immature Granulocytes Absolute 0.16 #; Lymphocytes # 1.3 10*3/uL (1.4-4.0); Lymphocytes % 17.3 % (21.3-54.2); Mean Corpuscular HGB Conc 31.7 GM/DL (32-36); Mean Corpuscular Hemoglobin 30 PG (27-34); Mean Corpuscular Volume 93.1 FL (87-102); Mean Platelet Volume 9.6 FL (9.6-12.0); Monocytes # 0.5 10*3/uL (0.11-0.8); Monocytes % 7.3 % (1.7-12.7); Neutrophils # 5.2 10*3/uL (1.4-7.4); Neutrophils % 71.6 % (38.7-73.9); Platelet Count 229 T/CUMM (130-400); Red Blood Count 2.91 MC/CUMM (3.8-5.5); White Blood Count 7.2 T/CUMM (4-12)
[2017-03-05 07:00] LABS: Calcium 7.8 MG/DL (8.5-10.1); Osmolality,Calculated 274.7 MOS/KG (273-304); Potassium 3.7 MMOL/L (3.5-5.1)
[2017-03-05] MEDS: ZINC OXIDE PASTE 113 GM TUBE TOP SCH ×2 (10:09→21:13)
[2017-03-05] MEDS: ENOXAPARIN 40 MG/0.4 ML SYRINGE SUBCUT SCH (10:10)
[2017-03-05] MEDS: PANTOPRAZOLE 40 MG TABLET PO SCH (10:10)
--- NOTE | 2017-03-05 11:05 | Event Note ---
She feels much better. She is afebrile with stable vital signs. She is tolerating tube feeds. He looks like she had about 900 cc of output from her fistula in the last 20 or hours. We are keeping an eye on her fluids and electrolytes. This is a moderately high output fistula and this is a concern and I would like to at least keep her in the hospital through this weekend. Hopefully the fistula will close with adequate nutrition. Her white blood cell count is now normal.
--- NOTE | 2017-03-05 12:35 | Infectious Disease Progress ---
Assessment and Plan (1) Abdominal abscess Status: Acute Assessment and plan: Imaging studies shows that this abscess is persisting. Leukocytosis resolved. Recommendations: 1. Continue linezolid and Zosyn 2. Follow-up results of blood cultures Current Visit: No (2) Colon cancer Status: Acute Current Visit: No (3) Fistula Status: Acute Current Visit: No (4) UTI (urinary tract infection) Status: Acute Assessment and plan: E. coli once again this time. Sensitive to the Zosyn that she is on. Current Visit: Yes (5) Leukocytosis Status: Acute Assessment and plan: Suspect cause intra-abdominal abscess; we need to make sure there is no associated bloodstream infection. Leukocytosis resolved. Current Visit: Yes Infectious Disease - PN: Subj Interval history: Patient doing okay in general. Says she did eat her breakfast this morning because she was full after she got the feeding through her PEG. No fever. Tolerating antibiotics without any difficulties. Infectious Disease Exam (PN) - Constitutional Vitals: Temp Pulse Resp BP Pulse Ox 98.6 F 67 18 107/53 98 03/05/17 12:00 03/05/17 12:00 03/05/17 12:00 03/05/17 12:00 03/05/17 12:00 General appearance: no acute distress Exam: General appearance: Relatively comfortable - Eye Eye exam: Present: EOMI. no icterus Pupils: Present: MARTIN - ENT ENT exam: no oral exudates - Respiratory Respiratory exam: vesicular BS, no crepitations or wheezes - Cardiovascular Cardiovascular exam: regular rate and rhythm, no murmurs - GI/Abdominal GI/Abdominal exam: Ostomy is noted with significant output, PEG present with mild surrounding tenderness, normal bowel sounds, soft, no organomegaly or mass - Extremities Exam Extremities exam: no edema - Skin Skin exam: no rash Results - Labs CBC & BMP: 03/05/17 05:51 03/05/17 05:51 Lab Results: I have reviewed the past 24 hour labs
[2017-03-06] MEDS: DEXTROSE 5% NACL 0.9% 1,000 ML IV SCH ×3 (04:49→18:32)
[2017-03-06] MEDS: LINEZOLID 600 MG TABLET PO SCH ×2 (06:32→18:32)
[2017-03-06] MEDS: PIPERACILLIN/TAZOBACTAM 3,375 MG in SODIUM CHLORIDE 0.9% 100 ML IV SCH ×3 (06:32→21:18)
[2017-03-06] MEDS: ENOXAPARIN 40 MG/0.4 ML SYRINGE SUBCUT SCH (08:20)
[2017-03-06] MEDS: PANTOPRAZOLE 40 MG TABLET PO SCH (08:20)
[2017-03-06] MEDS: ZINC OXIDE PASTE 113 GM TUBE TOP SCH ×2 (10:11→21:15)
[2017-03-06] MEDS: MORPHINE 2 MG/1 ML SYRINGE IV PRN ×2 (10:18→18:31)
--- NOTE | 2017-03-06 10:46 | Event Note ---
This patient is stable. She has a feeding tube and is also eating regular diet. She has a fistula intercutaneous which appears controlled. On exam she does have some erythema and excoriation on her skin around the fistula drainage site but there is no evidence of deep infection. Her white blood cell count is normal. We will continue current care for now.
[2017-03-07] MEDS: DEXTROSE 5% NACL 0.9% 1,000 ML IV SCH ×2 (01:22→09:29)
[2017-03-07] MEDS: ONDANSETRON 4 MG/2 ML VIAL IV PRN (01:22)
[2017-03-07] MEDS: MORPHINE 2 MG/1 ML SYRINGE IV PRN ×5 (01:29→20:30)
[2017-03-07] MEDS: LINEZOLID 600 MG TABLET PO SCH ×2 (06:33→18:40)
[2017-03-07] MEDS: PIPERACILLIN/TAZOBACTAM 3,375 MG in SODIUM CHLORIDE 0.9% 100 ML IV SCH ×3 (06:35→20:34)
--- NOTE | 2017-03-07 08:06 | Event Note ---
She feels well. She is having more output from the lower incision as I had originally planned which I think will allow the abscess cavity to completely collapse. She is tolerating her supplemental tube feedings without difficulty and actually eating a bit more. Overall she looks better and her white blood cell count is normal. I think in the next couple days we can look at transfer to a swing bed.
[2017-03-07] MEDS: ENOXAPARIN 40 MG/0.4 ML SYRINGE SUBCUT SCH (08:17)
[2017-03-07] MEDS: PANTOPRAZOLE 40 MG TABLET PO SCH (08:17)
[2017-03-07] MEDS: ZINC OXIDE PASTE 113 GM TUBE TOP SCH ×2 (10:52→20:29)
[2017-03-08] MEDS: MORPHINE 2 MG/1 ML SYRINGE IV PRN ×5 (00:36→20:59)
[2017-03-08] MEDS: ONDANSETRON 4 MG/2 ML VIAL IV PRN (05:50)
[2017-03-08] MEDS: LINEZOLID 600 MG TABLET PO SCH ×2 (05:54→18:34)
[2017-03-08] MEDS: PIPERACILLIN/TAZOBACTAM 3,375 MG in SODIUM CHLORIDE 0.9% 100 ML IV SCH ×3 (05:55→20:58)
--- NOTE | 2017-03-08 07:03 | Event Note ---
She feels better overall. She is tolerating bolus interval feeds. She is also taking more p.o. She is now having a higher output from her fistula. It looks like she had about a liter and a half the best I can tell. All of this is from the lower incision. The upper incision where she had a previous percutaneous drain is no longer putting out. Hopefully this means that this abscess cavity has closed off. A challenge for her may be fluids and electrolytes and maintaining hydration. I would like to keep her another few days while we make sure that this is stable. This could be difficult to manage either at home or in the swing bed. I am rechecking lab work today.
[2017-03-08 07:06] LABS: Calcium 8.2 MG/DL (8.5-10.1); Magnesium 1.7 MG/DL (1.8-2.4); Osmolality,Calculated 277.4 MOS/KG (273-304); Phosphorous 3.5 MG/DL (2.5-4.9); Potassium 4.1 MMOL/L (3.5-5.1); Prealbumin 21.9 MG/DL (20-40)
[2017-03-08 07:22] LABS: Basophils % 0.1 % (0.0-0.8); Eosinophils # 0.1 10*3/uL (0.0-0.87); Eosinophils % 0.7 % (0.00-10.9); Hemoglobin 8.8 GM/DL (12.0-16.0); Immature Granulocytes % 1.6 %; Immature Granulocytes Absolute 0.13 #; Lymphocytes # 2.1 10*3/uL (1.4-4.0); Lymphocytes % 25.7 % (21.3-54.2); Mean Corpuscular HGB Conc 32.6 GM/DL (32-36); Mean Corpuscular Hemoglobin 30 PG (27-34); Mean Corpuscular Volume 92.5 FL (87-102); Mean Platelet Volume 9.5 FL (9.6-12.0); Monocytes # 0.5 10*3/uL (0.11-0.8); Monocytes % 6.5 % (1.7-12.7); Neutrophils # 5.3 10*3/uL (1.4-7.4); Neutrophils % 65.4 % (38.7-73.9); Platelet Count 335 T/CUMM (130-400); Red Blood Count 2.92 MC/CUMM (3.8-5.5); Red Cell Distribution Width 14.4 % (9.3-17.3)
[2017-03-08 08:22] LABS: Alanine Aminotransferase 24 U/L (13-56); Albumin 1.8 G/DL (3.4-5.0); Alkaline Phosphatase 305 U/L (45-117); Aspartate Amino Transferase 19 U/L (0-37); Bilirubin,Total < 0.39 MG/DL (0.2-1.0); Blood Urea Nitrogen 10 MG/DL (7-18); Calcium 8.2 MG/DL (8.5-10.1); Glucose 105 MG/DL (74-106); Osmolality,Calculated 273.7 MOS/KG (273-304); Potassium 4.1 MMOL/L (3.5-5.1); Sodium 138 MMOL/L (136-145); Total Protein 5.3 G/DL (6.4-8.3)
[2017-03-08] MEDS: ZINC OXIDE PASTE 113 GM TUBE TOP SCH ×2 (09:02→20:59)
[2017-03-08] MEDS: PANTOPRAZOLE 40 MG TABLET PO SCH (10:34)
[2017-03-08] MEDS: ENOXAPARIN 40 MG/0.4 ML SYRINGE SUBCUT SCH (10:34)
[2017-03-08] MEDS: DEXTROSE 5% NACL 0.9% 1,000 ML IV SCH (13:28)
--- NOTE | 2017-03-08 13:36 | Infectious Disease Progress ---
Assessment and Plan (1) Abdominal abscess Status: Acute Assessment and plan: Leukocytosis resolved. Blood cultures were negative. Recommendations: 1. Continue linezolid and Zosyn 2. Consider repeat CT abdomen and some point to assess for resolution of the abscess Current Visit: No (2) Colon cancer Status: Acute Current Visit: No (3) Fistula Status: Acute Current Visit: No (4) UTI (urinary tract infection) Status: Acute Assessment and plan: E. coli once again this time. Sensitive to the Zosyn that she is on. Current Visit: Yes (5) Leukocytosis Status: Acute Assessment and plan: resolved. Current Visit: Yes Infectious Disease - PN: Subj Interval history: Doing relatively okay, uneventful weekend. She currently complains of being hot. No fever documented. No nausea vomiting or diarrhea but she is anorexic. Infectious Disease Exam (PN) - Constitutional Vitals: Temp Pulse Resp BP Pulse Ox 97.7 F 79 20 136/67 98 03/08/17 10:40 03/08/17 10:40 03/08/17 10:40 03/08/17 10:40 03/08/17 10:40 General appearance: no acute distress Exam: General appearance: Relatively comfortable - Eye Eye exam: Present: EOMI. no icterus Pupils: Present: MARTIN - ENT ENT exam: no oral exudates - Respiratory Respiratory exam: vesicular BS, no crepitations or wheezes - Cardiovascular Cardiovascular exam: regular rate and rhythm, no murmurs - GI/Abdominal GI/Abdominal exam: Ostomies noted with greenish brown output, PEG present without surrounding tenderness, normal bowel sounds, soft, no organomegaly or mass - Extremities Exam Extremities exam: no edema - Skin Skin exam: no rash Results - Labs CBC & BMP: 03/08/17 05:54 03/08/17 05:57 Lab Results: I have reviewed the past 24 hour labs
--- NOTE | 2017-03-08 15:00 | Event Note ---
Pt gone for radiological testing.
--- NOTE | 2017-03-08 15:06 | CT Report ---
CT of the head without contrast. Indication: Vertigo. Comparison: June 06, 2014. There is calcific plaque present within the intracranial internal carotid arteries. There is generalized prominence of the ventricles and sulci consistent with atrophy of aging. There are moderate areas of low density in the periventricular white matter. There is no mass effect or midline shift. There is no evidence of acute hemorrhage. No cortical infarcts are seen at this time. There is soft tissue mucosal thickening involving the right sphenoid sinus. The mastoid air cells are clear. Impression: Sphenoid sinusitis. White matter changes likely attributable to chronic microvascular ischemia. No acute intracranial process is seen. The CT exam was performed using one or more of the following dose reduction techniques: Automated exposure control, adjustment of the mA and/or kV according to patient size, or use of iterative reconstruction technique. PROCEDURE INTERPRETED AT [facility] DEPARTMENT OF RADIOLOGY Final Report Signed by: Dr. Neeta Pinedo
[2017-03-09] MEDS: MORPHINE 2 MG/1 ML SYRINGE IV PRN ×4 (04:37→21:04)
[2017-03-09] MEDS: ONDANSETRON 4 MG/2 ML VIAL IV PRN ×3 (04:48→17:58)
[2017-03-09] MEDS: PIPERACILLIN/TAZOBACTAM 3,375 MG in SODIUM CHLORIDE 0.9% 100 ML IV SCH ×3 (05:31→20:54)
[2017-03-09] MEDS: LINEZOLID 600 MG TABLET PO SCH ×2 (05:32→18:46)
--- NOTE | 2017-03-09 06:54 | Event Note ---
She had some dizziness which was persistent and we checked a head CT that was negative. She has an enterocutaneous fistula which is moderate output. I had concerns about her volume status and electrolytes. This appears to be corrected. Her abdomen is benign. She is tolerating her tube feedings. Her pre-albumin is now a normal level. Hopefully this will allow for gradual closing of her fistula. The lack of function in her large atonic colon may inhibit the closing of the fistula the long run. All of these issues have been discussed in detail with the patient and family. I think she is at a point where we can see about getting her to a swing bed. I will be out of town for the next week and this was discussed with the patient and family. My partners will be covering in my absence.
[2017-03-09] MEDS: PANTOPRAZOLE 40 MG TABLET PO SCH (08:37)
[2017-03-09] MEDS: ENOXAPARIN 40 MG/0.4 ML SYRINGE SUBCUT SCH (08:37)
[2017-03-09] MEDS: ZINC OXIDE PASTE 113 GM TUBE TOP SCH ×2 (10:51→21:09)
--- NOTE | 2017-03-09 15:29 | Neurology Consult Note ---
History of Present Illness History of present illness: Ms. Westbrook is a 76 year old female who had colectomy last month for colon cancer. 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 She also had an intra-abdominal abscess as well which culture positive for VRE and E. coli. She went home but reported she was doing poorly, very anorexic. Because of poorly state and lack of eating she came to the emergency room and was admitted. She was found to have some sort of infection with leukocytosis. Yesterday she developed some dizziness which lasted all day long. A CT of the head done which did not reveal any pathology. She says she has not had any fever or chills. Today she reported that her symptoms have resolved completely. She has no more dizziness. No difficulty with vision, swallowing problems, weakness tingling or numbness. Home Medications Medication Instructions Recorded Confirmed Type Atorvastatin [Lipitor] 40 mg PO DAILY 01/21/17 02/26/17 History Bisoprolol/Hctz 2.5-6.25 [Ziac 1 tablet PO DAILY 01/21/17 02/26/17 History 2.5-6.25] Citalopram [CeleXA] 40 mg PO DAILY 01/21/17 02/26/17 History Clorazepate Dipotassium 7.5 mg PO TID 01/21/17 02/26/17 History Levothyroxine Tab [Synthroid Tab] 50 mcg PO DAILY 01/21/17 02/26/17 History Oxybutynin [Ditropan] 5 mg PO BID 01/21/17 02/26/17 History Promethazine Tab [Phenergan Tab] 25 mg PO Q6H PRN 01/21/17 02/26/17 History Albuterol Inhaler [Proventil 2 puff INH Q6H PRN 02/04/17 02/26/17 History Inhaler] Fluticasone Propionate 1 spray BOTH NARES DAILY 02/04/17 02/26/17 History [Fluticasone 50 mcg Nasal [place]] Omeprazole 20 mg PO DAILY 02/04/17 02/26/17 History Temazepam [Restoril] 30 mg PO BEDTIME PRN 02/04/17 02/26/17 History hydrOXYzine HCl [Hydroxyzine HCl] 25 mg PO QID PRN 02/04/17 02/26/17 History Hydrocodone/Acetaminophen 1 each PO Q6H PRN #30 tablet 02/19/17 02/26/17 Rx [Hydrocodon-Acetaminophen 5-325] Lactose-Reduced Food [Ensure 237 ml PO TID #90 liquid 02/19/17 02/26/17 Rx Original] Allergies Allergy/AdvReac Type Severity Reaction Status Date / Time No Known Allergies Allergy Verified 01/21/17 09:17 12 point system: reviewed and no additional remarkable complaints except as stated Medical,Surgical,& Family Hx - Medical History Cardio: History of: Hypertension (MEDICATION) No history of: Cardiac Dysrhythmia, CHF, PR, Pacemaker, Valvular Heart Disease Psychological: History of: Anxiety Disorders (MEDICATION), Depression ( MEDICATION) Neurology: No history of: Brain Aneurysm, Migraine, Peripheral Neuropathy, Seizures HEENT: Comment Only: Dental Problems (UPPPER AND LOWER) Endocrine: History of: Dyslipidemia Rheumatology: History of;: Gout Respiratory: History of: Bronchitis, COPD No history of: Obstructive Sleep Apnea Comment Only: Respiratory Problems (HAD FLU VACCINE UP TO DATE ON PNUEMONIA) Genitourinary: History of: Bladder Problem (HAD BLADDER TACT WITH MESH), Recurring Urinary Tract Infections Gastrointestinal: History of: GERD, Polyps (HAD POLYPS REMOVED), GI Problems ( Chronic constipation) Musculoskeletal: History of: Musculoskeletal Problems (BURSITIS IN LEFT HIP) Hematology: No history of: Blood Transfusion Reaction Other: No history of: Anesthesia Reactions - Surgical History Cardiac Surgeries: Patient Denies: Cardiac Catheterization Neurologic Surgeries: Patient denies: Brain Aneurysm HEENT Surgeries: Surgical HX of: Eye Surgery (BILATERAL CATARACT SURGERY) Abdominal Surgeries: Surgical HX of: Appendectomy, Cholecystectomy, Colonoscopy (REMOVED 9 INCHES OF COLON) Reproductive Surgeries: Surgical HX of;: Hysterectomy Orthopedic Surgeries: Surgical HX of;: Total Knee Replacement (LEFT KNEE REPLACEMENT) - Family History Family History: Reports;: Family Stroke (MOTHER) - Social History Smoking Status: Current every day smoker Frequency of Alcohol Use: None Type of Drug Use: None Exam - Constitutional Vitals: Period Temp Pulse Resp BP Sys/Sow Pulse Ox Last 24 Hr 97.2 F-98.5 F 78-87 18-20 121-141/60-73 92-97 Exam: GENERAL: Patient is in no acute distress. NECK: Neck is supple. There is no JVD. No carotid bruits present. No thyroid masses. CVS: First and second heart sounds are normal. There is no S3 present. Regular rate and rhythm. RESPIRATORY: Lungs are clear to auscultation without any rales or rhonchi. ABDOMEN: Soft and non-tender. Bowel sounds are present. There is no hepatosplenomegaly. EXT: There is no palpable edema. Peripheral pulses are present. Skin: No rashes Central Nervous system: General: Alert, awake and Oriented x 3 Speech: Fluent Comprehension: Intact and normal Facial expressions: Normal Cranial Nerves: CN1/Olfactory: Normal CN II/ Optic: Normal, Visual Nevarez unreliable CN III, and : MARTIN & EOMI CN V: Normal & intact CN VII: face is symmetric CNVIII: Normal CN XI/X/XI/XII: Intact and Normal Motor: Bulk and Tone is normal. Strength in the right 3-4/5 Strength in the left 3-4/5 Sensory: Grossly intact for all the modalities of PP, LT and temp sense Reflexes: 1+ and symmetrical Cerebellar function: Normal finger to nose and heel to irizarry testing. Toes: Equivocal Gait: Not tested Results - Labs CBC & BMP: 03/08/17 05:54 03/08/17 05:57 Assessment and Plan (1) Dizziness Status: Acute Assessment and plan: Very nonspecific symptom and likely multifactorial. No evidence of a stroke, TIAs, or any other GENERAL DENTIST pathology. In terms had resolved completely which suggest possible medication side effect. No further intervention needed at this time from neuro standpoint Sign off please call as needed Current Visit: Yes Specialty Discharge - Follow Up or Referrals Follow up with: Nikolas Meeks III., MD [Physician] -
--- NOTE | 2017-03-09 15:37 | Infectious Disease Progress ---
Assessment and Plan (1) Abdominal abscess Status: Acute Assessment and plan: Leukocytosis resolved. Blood cultures were negative. Platelet count stable on linezolid. Recommendations: Continue linezolid and Zosyn Current Visit: No (2) Colon cancer Status: Acute Current Visit: No (3) Fistula Status: Acute Current Visit: No (4) UTI (urinary tract infection) Status: Acute Assessment and plan: E. coli once again this time. Sensitive to the Zosyn that she is on. Current Visit: Yes (5) Leukocytosis Status: Resolved Assessment and plan: resolved. Current Visit: Yes Infectious Disease - PN: Subj Interval history: Patient had some dizziness yesterday but is better today. Has not any fever. Continues to be anorexic. 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 Infectious Disease Exam (PN) - Constitutional Vitals: Temp Pulse Resp BP Pulse Ox 97.6 F 103 H 20 130/68 97 03/09/17 15:28 03/09/17 15:28 03/09/17 15:28 03/09/17 15:28 03/09/17 15:28 General appearance: no acute distress Exam: General appearance: Relatively comfortable - Eye Eye exam: Present: EOMI. no icterus Pupils: Present: MARTIN - ENT ENT exam: no oral exudates - Respiratory Respiratory exam: vesicular BS, no crepitations or wheezes - Cardiovascular Cardiovascular exam: regular rate and rhythm, no murmurs - GI/Abdominal GI/Abdominal exam: Ostomies noted with greenish brown output from the inferior one, none from the superior 1, PEG present without surrounding tenderness, normal bowel sounds, soft, no organomegaly or mass - Extremities Exam Extremities exam: no edema - Skin Skin exam: no rash Results - Labs CBC & BMP: 03/08/17 05:54 03/08/17 05:57 Lab Results: I have reviewed the past 24 hour labs Specialty Discharge - Follow Up or Referrals Follow up with: Nikolas Meeks III., MD [Physician] -
[2017-03-10] MEDS: MORPHINE 2 MG/1 ML SYRINGE IV PRN ×2 (05:34→11:55)
[2017-03-10] MEDS: LINEZOLID 600 MG TABLET PO SCH (05:37)
[2017-03-10] MEDS: PIPERACILLIN/TAZOBACTAM 3,375 MG in SODIUM CHLORIDE 0.9% 100 ML IV SCH (05:39)
[2017-03-10] MEDS: ONDANSETRON 4 MG/2 ML VIAL IV PRN (06:40)
--- NOTE | 2017-03-10 08:12 | Event Note ---
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 She is on antibiotics and she is tolerating some p.o. intake which is being supplemented by tube feeding through a gastrostomy tube. She is awaiting transfer to [facility] and the only thing that needs to be changed on her treatment regimen is her antibiotics which need to be oral before she can be accepted down there. I have asked the nursing to discuss this with Dr. Leach when she comes by today. The only IV antibiotic that the patient on Zosyn. If she can be safely changed over to p.o. regimen she will be transferred to [facility] today. On exam she is afebrile with normal vital signs and she has an ostomy appliance over 2 incisions on her right abdomen with bowel contents coming through the lower incision. The skin is slightly macerated but there is no evidence of undrained infection in the remainder of her abdominal exam is benign. We will await results of discussions with infectious disease
[2017-03-10] MEDS: ENOXAPARIN 40 MG/0.4 ML SYRINGE SUBCUT SCH (08:27)
[2017-03-10] MEDS: PANTOPRAZOLE 40 MG TABLET PO SCH (08:27)
[2017-03-10] MEDS: ZINC OXIDE PASTE 113 GM TUBE TOP SCH (08:28)
[2017-03-10] MEDS ORDERED: PROMETHAZINE 25 MG TABLET PO PRN (08:37)
[2017-03-10 11:28] VITALS: BP 145/84
--- NOTE | 2017-03-10 12:45 | Infectious Disease Progress ---
Assessment and Plan (1) Abdominal abscess Status: Acute Assessment and plan: Leukocytosis resolved. Blood cultures were negative. Platelet count stable on linezolid. Recommendations: She is being transferred to swing bed today and she will continue oral linezolid and I will switch from Zosyn to oral Augmentin. Because the abscess was quite large I am going to treat her for 4 weeks, so 3 more weeks to go. Current Visit: No (2) Colon cancer Status: Acute Current Visit: No (3) Fistula Status: Acute Current Visit: No (4) UTI (urinary tract infection) Status: Acute Assessment and plan: Treated Current Visit: Yes (5) Leukocytosis Status: Resolved Assessment and plan: resolved. Current Visit: Yes Infectious Disease - PN: Subj Interval history: Patient feeling better today in general, she has not had fever. Still anorexic and was a bit nauseous today but no vomiting. No abdominal pain today. Infectious Disease Exam (PN) - Constitutional Vitals: Temp Pulse Resp BP Pulse Ox 97.5 F L 118 H 20 145/84 97 03/10/17 11:27 03/10/17 11:27 03/10/17 11:27 03/10/17 11:27 03/10/17 11:27 General appearance: no acute distress Exam: General appearance: comfortable - Eye Eye exam: Present: EOMI. no icterus Pupils: Present: MARTIN - ENT ENT exam: no oral exudates - Respiratory Respiratory exam: vesicular BS, no crepitations or wheezes - Cardiovascular Cardiovascular exam: regular rate and rhythm, no murmurs - GI/Abdominal GI/Abdominal exam: Ostomies noted with greenish brown output from the inferior one, none from the superior one for the past 2 days, PEG present without surrounding tenderness, normal bowel sounds, soft, no organomegaly or mass - Extremities Exam Extremities exam: no edema - Skin Skin exam: no rash Results - Labs CBC & BMP: 03/08/17 05:54 03/08/17 05:57 Lab Results: I have reviewed the past 24 hour labs Specialty Discharge - Follow Up or Referrals Follow up with: Nikolas Meeks III., MD [Physician] -
[2017-03-10] MEDS ORDERED: AMOXICILLIN/CLAV 875 MG TABLET PO SCH (13:00)
--- NOTE | 2017-03-10 13:23 | Discharge Summary ---
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 It was found the abscess was persistently peritoneal cavity with fistula noted with communication with the skin from the colon. She underwent closure of the cutaneous fistula with a drainage of the abdominal wall abscess on 03/01/[address] Nikolas Meeks. With poor oral intake, PEG was recommended and gastroenterology consultation was obtained; PEG tube was placed 03/02/2017. With new leukocytosis and previous failure of current antibiotics infectious disease was consulted for antibiotic recommendations; she was switched to linezolid and Zosyn at that time. She also was noted to have a urinary tract infection with E. coli. Prolonged monitoring of her electrolytes and renal function were required with increased output from the fistula and she was requiring intravenous antibiotics. At one point she was noting persistent, severe dizziness and CT of the head was obtained which was negative. Neurology consultation was obtained and no neurologic deficits were appreciated at that time. She ultimately, she was stable, tolerating PEG feeds , and improving of her home and [facility]. Diagnosis - Discharge Diagnosis (1) Dehydration Status: Acute (2) Dizziness Status: Acute (3) UTI (urinary tract infection) Status: Acute (4) Leukocytosis Status: Resolved (5) Abdominal abscess Status: Acute (6) Fistula Status: Acute Specialty Discharge - Follow Up or Referrals Follow up with: Nikolas Meeks III., MD [Physician] - Discharge Plan - Discharge Data Disposition: Disch/Xfer to Snf Condition at Discharge: Stable Discharge Diet: other (soft diet; supplement with tube feedings via PEG tube) Activity: no lifting (>10lb) Wound / Dressing Care Instructions: -routine PEG tube care. -routine colostomy care - Discharge Medications New Zinc Oxide Paste [Desitin Paste] 1 applic TOP BID applic Amoxicillin/Clav Tab [Augmentin Tab] 875 mg PO Q12H tablet Linezolid Tab [Zyvox Tab] 600 mg PO Q12H tablet Continue Clorazepate Dipotassium 7.5 mg PO TID Atorvastatin [Lipitor] 40 mg PO DAILY Levothyroxine Tab [Synthroid Tab] 50 mcg PO DAILY Bisoprolol/Hctz 2.5-6.25 [Ziac 2.5-6.25] 1 tablet PO DAILY Omeprazole 20 mg PO DAILY hydrOXYzine HCl [Hydroxyzine HCl] 25 mg PO QID PRN PRN Reason: Allergy Symptoms Fluticasone Propionate [Fluticasone 50 mcg Nasal [place]] 1 spray BOTH NARES DAILY Hydrocodone/Acetaminophen [Hydrocodon-Acetaminophen 5-325] 1 each PO Q6H PRN #30 tablet PRN Reason: Pain Moderate To Severe (4-10) Lactose-Reduced Food [Ensure Original] 237 ml PO TID #90 liquid Citalopram [CeleXA] 40 mg PO DAILY #30 Promethazine Tab [Phenergan Tab] 25 mg PO Q6H PRN #40 PRN Reason: Nausea Temazepam [Restoril] 30 mg PO BEDTIME PRN #30 PRN Reason: Sleep Oxybutynin [Ditropan] 5 mg PO BID Albuterol Inhaler [Proventil Inhaler] 2 puff INH Q6H PRN PRN Reason: Shortness Of Breath/Wheezing - Follow Up or Referral Follow Up: Nikolas Meesk III., MD [Physician] - (1 week ) - Forms/Instructions Instructions: Dehydration (DC), How to Use and Care for Your PEG Tube (DC), Urinary Tract Infection in Women (DC) Exam - Constitutional Vitals: Period Temp Pulse Resp BP Sys/Sow Pulse Ox Last 24 Hr 97.1 F-99.3 F 90-118 18-20 119-145/68-84 92-[address] Bridges note. Discharge Results Procedures and tests throughout hospitalization: Pending Orders 03/11/17 04:00 Magnesium Routine Phosphorous Routine Prealbumin Routine See course history. - Additional Comments See course history. DS: Provider Date of admission: 02/26/17 14:14 Primary care physician: Reed Friedman, Attending physician on admission: Nikolas Meeks III., Consults: 03/01/17 15:06 Consult to Physician [CONS] Routine Comment: PEG placement Consulting Provider: Reed Anderson Consulting Provider Notified: Yes When should Consulting Provider be notified: Now Person Notified: brendan pennie Date Notified: 03/01/17 Time Notified: 15:33 03/02/17 09:48 Consult to Case Mgmt/Social Srvs [CONS] Routine Reason for Case Mgmt/Social Srvs: Discharge Planning Consult Comment: swing bed 03/02/17 10:12 Consult to Occupational Therapy [CONS] Routine Reason for Occupational Therapy: Evaluate and Treat Consult Comment: For Swing Bed Placement Consult to Physical Therapy [CONS] Routine Reason for Physical Therapy: Evaluate and Treat Consult Comment: for Swing Bed Placement 03/03/17 07:43 Consult to Physical Therapy [CONS] Routine Reason for Physical Therapy: Evaluate and Treat Ambulation Weakness Start Therapy: Today 03/03/17 09:19 Consult to Physician [CONS] Routine Comment: Leukocytosis; previous vre Consulting Provider: Brenda Pa Consulting Provider Notified: Yes When should Consulting Provider be notified: Now Consult to Specialist Group: Infectious Disease Person Notified: brendan called Date Notified: 03/03/17 Time Notified: 11:59 03/08/17 13:32 Consult to Physician [CONS] Routine Comment: VERTIGO Consulting Provider: Sharif Byrd Consulting Provider Notified: Yes When should Consulting Provider be notified: Now Person Notified: koby called Date Notified: 03/08/17 Time Notified: 13:52 Discharging clinician: Glo Wilks PA-C
== END 2017-03-10 14:52 | DRG 988 ==
LOC: N.3E 14:14
PROVIDERS: ADMIT Surgery; ATTEND Surgery
PROC: EGDWPEG (ICD-10-PCS; 2017-03-02 12:05)

== ENCOUNTER 2017-03-24 14:39 | Inpatient (IN) ==
[2017-03-24] MEDS ORDERED: SODIUM CHLORIDE 0.9% 500 ML IV STA (15:13)
--- NOTE | 2017-03-24 15:29 | Emergency Department Note ---
Ahsan Del Angel Manpreet, am scribing for, and in the presence of, Juan Daniel Wright MD 15: 16. Adriana Del Angel James D, MD, personally performed the services described in this documentation, ascribed by Iron [employer] in my presence, and it is both accurate and complete . Arrival - Arrival Chief Complaint: Abscess Stated Complaint: abscess at colostomy site ED Nursing Triage Note: PT HAS REDNESS AND WARMTH TO AN AREA RIGHT OF COLOSTOMY - NOTICED LAST NIGHT. COLOSTOMY WAS DONE IN JANUARY PER DR CONSTANTINO GROSS. Mode of Arrival: Stretcher Limitations: No Limitations Source: Patient, RN Notes Reviewed - History of Present Illness HPI Narrative: Pt is a 76 y/o female, with PMHx of HTN, HLD, gout, bronchitis, COPD, and GERD, who presents to the ED with CC of erythema and warmth to an area to the right of the site of his colostomy under her bag which the family noticed yesterday. Pt's colostomy was done in February [address] Constantino GROSS. Pt had the colostomy for colon CA. The family states the pt c/o soreness at her Abd on right side but denies it while in the room. Pt's family also c/o a low grade subjective fever but the pt recorded a body temperature of 98.2 F. Pt had a episode of vomit for the first time today states family. No other pains/complaints reported to the ED. Onset (ago): hour(s) Consistency: constant Severity: moderate Allergies/Adverse Reactions: Allergies Allergy/AdvReac Type Severity Reaction Status Date / Time No Known Allergies Allergy Verified 03/24/17 14:49 Home Medications: Home Medications Medication Instructions Recorded Confirmed Type Atorvastatin [Lipitor] 40 mg PO DAILY 01/21/17 03/24/17 History Bisoprolol/Hctz 2.5-6.25 [Ziac 1 tablet PO DAILY 01/21/17 03/24/17 History 2.5-6.25] Clorazepate Dipotassium 7.5 mg PO TID 01/21/17 03/24/17 History Levothyroxine Tab [Synthroid Tab] 50 mcg PO DAILY 01/21/17 03/24/17 History Albuterol Inhaler [Proventil 2 puff INH Q6H PRN 02/04/17 03/24/17 History Inhaler] Amoxicillin/Clav Tab [Augmentin 875 mg PO Q12H tablet 03/10/17 03/24/17 Rx Tab] Promethazine Tab [Phenergan Tab] 25 mg PO Q6H PRN #40 03/10/17 03/24/17 Rx Temazepam [Restoril] 30 mg PO BEDTIME PRN #30 03/10/17 03/24/17 Rx Hydrocodone/Acetaminophen 1 tablet PO Q8H PRN 03/24/17 03/24/17 History [Hydrocodon-Acetaminophen 5-325] Review of System - Review of System 12 point system: reviewed and no additional remarkable complaints except as stated - Review of System Constitutional: Present: fever. Absent: chills, diaphoresis Respiratory: Absent: cough, respiratory distress, wheezing Cardiovascular: Absent: chest pain Gastrointestinal: Present: vomiting. Absent: abdominal pain, nausea Genitourinary female: Absent: dysuria Skin: Present: change in color (Redness). Absent: rash, lesions Neurological: Absent: headache, weakness, numbness, paresthesias Medical,Surgical,& Family Hx - Medical History Cardio: History of: Hypertension (MEDICATION) No history of: Cardiac Dysrhythmia, CHF, CA, Pacemaker, Valvular Heart Disease Psychological: History of: Anxiety Disorders (MEDICATION), Depression ( MEDICATION) Neurology: No history of: Brain Aneurysm, Migraine, Peripheral Neuropathy, Seizures HEENT: Comment Only: Dental Problems (UPPPER AND LOWER) Endocrine: History of: Dyslipidemia Rheumatology: History of;: Gout Respiratory: History of: Bronchitis, COPD No history of: Obstructive Sleep Apnea Comment Only: Respiratory Problems (HAD FLU VACCINE UP TO DATE ON PNUEMONIA) Genitourinary: History of: Bladder Problem (HAD BLADDER TACT WITH MESH), Recurring Urinary Tract Infections Gastrointestinal: History of: GERD, Polyps (HAD POLYPS REMOVED), GI Problems ( Chronic constipation) Musculoskeletal: History of: Musculoskeletal Problems (BURSITIS IN LEFT HIP) Hematology: No history of: Blood Transfusion Reaction Other: No history of: Anesthesia Reactions - Surgical History Cardiac Surgeries: Patient Denies: Cardiac Catheterization Neurologic Surgeries: Patient denies: Brain Aneurysm HEENT Surgeries: Surgical HX of: Eye Surgery (BILATERAL CATARACT SURGERY) Abdominal Surgeries: Surgical HX of: Abdominal Surgery (Colectomy with colostomy in January 2017), Appendectomy, Cholecystectomy, Colonoscopy (REMOVED 9 INCHES OF COLON) Reproductive Surgeries: Surgical HX of;: Hysterectomy Orthopedic Surgeries: Surgical HX of;: Total Knee Replacement (LEFT KNEE REPLACEMENT) - Family History Family History: Reports;: Family Stroke (MOTHER) - Social History Smoking Status: Current every day smoker Frequency of Alcohol Use: None Type of Drug Use: None Exam Vital Signs: Vital Signs Temperature 98.2 F 03/24/17 14:39 Pulse Rate 86 03/24/17 17:11 Respiratory Rate 18 03/24/17 17:11 Blood Pressure 96/65 03/24/17 17:11 O2 Sat by Pulse Oximetry 95 03/24/17 17:11 GENERAL: This is a white female, chronically ill-appearing in no apparent distress. VITAL SIGNS: Reviewed HEENT: Head is atraumatic and normocephalic. Pupils are equal round react to light. Extraocular movements are intact. Oropharynx is benign with moist mucous membranes. NECK: Neck is soft and supple without tenderness. There are no masses. There is no lymphadenopathy. LUNGS: Lungs are clear to auscultation. Chest rises symmetrically. There is no chest wall tenderness. CV: Heart is regular rate and rhythm without murmurs rubs or gallops. ABDOMEN: Abdomen is soft, tender to palpation lateral to the patient's colostomy site in the right lower quadrant. There is some area of erythema and fluctuance in this area. With compression of the site stool is expressed into colostomy bag through colostomy site. There is an old midline incision which is well healed. PEG tube is present epigastrium. SKIN: Skin is warm and dry. No rash. EXTREMITIES: Patient has full range of motion without tenderness. There is no pedal edema. NEUROLOGIC: Awake, alert, disoriented to time. Cranial nerves II through XII are grossly intact. Motor is 3 over 5 in all extremities bilaterally. Course - Consultations Consultation #1: Discussed with Dr. Oconnor. Patient will be admitted to the surgery service. Time: 16:48 Results - Labs CBC & BMP: 03/24/17 15:43 03/24/17 15:43 Lab Results: I have reviewed the patients labs Labs: Laboratory Tests 03/24/17 10 15:43 15:43 WBC 19.5 H RBC 3.32 L Hgb 10.3 L Hct 30.8 L MCV 92.8 MCH 31 MCHC 33.4 RDW 18.1 H Plt Count 354 Neut % (Auto) 81.9 H Lymph % (Auto) 8.3 L Neut # (Auto) 16.0 H Foard # (Auto) 1.5 H Sodium 126 L Potassium 5.0 Chloride 92 L Carbon Dioxide 23 Anion Gap 16.0 H BUN 38 H Creatinine 1.10 H GFR Calculation 43 BUN/Creatinine Ratio 34.00 H Glucose 167 H Calculated Osmolality 265.4 L Calcium 8.1 L Alkaline Phosphatase 408 H Total Protein 6.0 L Albumin 2.2 L Globulin 3.8 H Albumin/Globulin Ratio 0.5 L - Diagnostic Findings Procedure: Abdominal x-ray: image reviewed by me (PEG tube present in the epigastrium. No free air.), Chest x-ray: image reviewed by me (No infiltrates, no pleural effusions.), CT Abdomen and Pelvis: image reviewed by me Disposition Clinical Impression: Colon cancer, Hyponatremia Case discussed with: patient's family Disposition: Still a Patient Condition: Stable
[2017-03-24 16:01] LABS: Basophils # 0.1 10*3/uL (0.0-0.2); Basophils % 0.3 % (0.0-0.8); Eosinophils % 0.2 % (0.00-10.9); Hematocrit 30.8 VOL% (35.7-47.0); Hemoglobin 10.3 GM/DL (12.0-16.0); Immature Granulocytes % 1.8 %; Immature Granulocytes Absolute 0.35 #; Lymphocytes # 1.6 10*3/uL (1.4-4.0); Lymphocytes % 8.3 % (21.3-54.2); Mean Corpuscular HGB Conc 33.4 GM/DL (32-36); Mean Corpuscular Hemoglobin 31 PG (27-34); Mean Corpuscular Volume 92.8 FL (87-102); Mean Platelet Volume 9.6 FL (9.6-12.0); Monocytes # 1.5 10*3/uL (0.11-0.8); Monocytes % 7.5 % (1.7-12.7); Neutrophils % 81.9 % (38.7-73.9); Platelet Count 354 T/CUMM (130-400); Red Blood Count 3.32 MC/CUMM (3.8-5.5); Red Cell Distribution Width 18.1 % (9.3-17.3); White Blood Count 19.5 T/CUMM (4-12)
[2017-03-24 16:36] LABS: Albumin 2.2 G/DL (3.4-5.0); Bilirubin,Total 0.4 MG/DL (0.2-1.0); Calcium 8.1 MG/DL (8.5-10.1); Osmolality,Calculated 265.4 MOS/KG (273-304)
--- NOTE | 2017-03-24 17:00 | XRay Report ---
Portable chest Exam date: 03/24/2017 425 PM Indication: Shortness of breath, cough Comparison: March 02, 2017 Findings: Cardiomediastinal contours are normal. Lungs are clear bilaterally. No acute osseous abnormalities. Visualized upper abdomen demonstrates no acute pathology. Impression: Normal chest PROCEDURE INTERPRETED AT [facility] DEPARTMENT OF RADIOLOGY Final Report Signed by: Rufina Dalal MD
--- NOTE | 2017-03-24 17:09 | General Surg History&Physical ---
Assessment and Plan (1) Abdominal abscess Status: Acute Assessment and plan: New soft tissue and cecal abscesses reported. Previous cultures with e. coli and VRE. Will restart linezolid and zosyn and reconsult ID. Will likely require surgical intervention in am. Current Visit: No (2) Hyponatremia Status: Acute Assessment and plan: Hydrate with NS. Repeat labs in am. Current Visit: Yes (3) Colon cancer Status: Acute Assessment and plan: S/p right hemicolectomy 01/2017 with abscess and enterocutaneous fistula p/o. Now with additional abscess formation. Current Visit: No (4) Leukocytosis Status: Resolved Assessment and plan: Secondary to abscess and UTI. Abx as above. Repeat labs in am. Blood culture and urine culture pending. Current Visit: No (5) History of infection with vancomycin resistant Enterococcus (VRE) Status: Acute Assessment and plan: Contact precautions and abx as above. ID consultation pending. Current Visit: Yes (6) UTI (urinary tract infection) Status: Acute Assessment and plan: Cultures pending. Reported h/o recurrrent UTI. E.coli on previous culture. Abx as above. Current Visit: No History of Present Illness Chief complaint: Edema/erythema right side History of present illness: Ms. 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 She grew VRE from the cultures obtained and infectious disease was consulted. She was most recently discharged on Augmentin. She has at home in the care of her and daughters. She is a PEG tube in place with poor oral intake and anorexia. With routine ostomy VAC change yesterday, her noted an area of redness and soreness of the right side. He noticed this was larger, more erythematous and more tender today and brought her to the emergency department. They deny fever, chills or riders. She has not had increased output from her ostomy bag. Home Medications Medication Instructions Recorded Confirmed Type Atorvastatin [Lipitor] 40 mg PO DAILY 01/21/17 03/24/17 History Bisoprolol/Hctz 2.5-6.25 [Ziac 1 tablet PO DAILY 01/21/17 03/24/17 History 2.5-6.25] Clorazepate Dipotassium 7.5 mg PO TID 01/21/17 03/24/17 History Levothyroxine Tab [Synthroid Tab] 50 mcg PO DAILY 01/21/17 03/24/17 History Albuterol Inhaler [Proventil 2 puff INH Q6H PRN 02/04/17 03/24/17 History Inhaler] Amoxicillin/Clav Tab [Augmentin 875 mg PO Q12H tablet 03/10/17 03/24/17 Rx Tab] Promethazine Tab [Phenergan Tab] 25 mg PO Q6H PRN #40 03/10/17 03/24/17 Rx Temazepam [Restoril] 30 mg PO BEDTIME PRN #30 03/10/17 03/24/17 Rx Hydrocodone/Acetaminophen 1 tablet PO Q8H PRN 03/24/17 03/24/17 History [Hydrocodon-Acetaminophen 5-325] Allergies Allergy/AdvReac Type Severity Reaction Status Date / Time No Known Allergies Allergy Verified 03/24/17 14:49 Medical,Surgical,& Family Hx - Medical History Cardio: History of: Hypertension (MEDICATION) No history of: Cardiac Dysrhythmia, CHF, [place], Pacemaker, Valvular Heart Disease Psychological: History of: Anxiety Disorders (MEDICATION), Depression ( MEDICATION) Neurology: No history of: Brain Aneurysm, Migraine, Peripheral Neuropathy, Seizures HEENT: Comment Only: Dental Problems (UPPPER AND LOWER) Endocrine: History of: Dyslipidemia Rheumatology: History of;: Gout Respiratory: History of: Bronchitis, COPD No history of: Obstructive Sleep Apnea Comment Only: Respiratory Problems (HAD FLU VACCINE UP TO DATE ON PNUEMONIA) Genitourinary: History of: Bladder Problem (HAD BLADDER TACT WITH MESH), Recurring Urinary Tract Infections Gastrointestinal: History of: GERD, Polyps (HAD POLYPS REMOVED), GI Problems ( Chronic constipation) Musculoskeletal: History of: Musculoskeletal Problems (BURSITIS IN LEFT HIP) Hematology: No history of: Blood Transfusion Reaction Other: History of: Vancomycin-Resistant Enterococci No history of: Anesthesia Reactions - Surgical History Cardiac Surgeries: Patient Denies: Cardiac Catheterization Neurologic Surgeries: Patient denies: Brain Aneurysm HEENT Surgeries: Surgical HX of: Eye Surgery (BILATERAL CATARACT SURGERY) Abdominal Surgeries: Surgical HX of: Abdominal Surgery (Colectomy with colostomy in January 2017; subsequent I&D abscess/fistula x2), Appendectomy, Cholecystectomy, Colonoscopy (REMOVED 9 INCHES OF COLON) Reproductive Surgeries: Surgical HX of;: Hysterectomy Orthopedic Surgeries: Surgical HX of;: Total Knee Replacement (LEFT KNEE REPLACEMENT) Additional Surgical History: PEG tube - Family History Family History: Reports;: Family Stroke (MOTHER) - Social History Smoking Status: Current every day smoker Frequency of Alcohol Use: None Type of Drug Use: None Marital Status: Exam - Constitutional Vitals: Period Temp Pulse Resp BP Sys/Sow Pulse Ox Last 24 Hr 98.2 F 88-91 16-19 100-107/60-62 97-98 General appearance: no acute distress - Head Head exam: Present: atraumatic - Eye Eye exam: Absent: scleral icterus - Neck Neck exam: Present: trachea midline - Respiratory Respiratory exam: Present: clear to auscultation bilaterally - Cardiovascular Cardiovascular exam: Present: RRR - GI/Abdominal GI/Abdominal exam: Present: normal bowel sounds, other (previous fistula site remains open with no active drainage or erythema. On the right side there is an area of erythema and palpable fluid collection when pressed causes increased output from the ostomy which does not necessarily appear to be stool. This area is significantly tender to palpation and hyperemic.). Absent: distended, firm - Extremities Exam Extremities exam: Absent: calf tenderness, edema - Neurological Exam Neurological exam: Present: alert, oriented X3 - Skin Skin exam: Present: normal color, other (Brisk capillary refill). Absent: diaphoretic, mottled - Constitutional Constitutional: Present: other (poor appetite is unchanged). Absent: chills, fever(s) - Cardiovascular Cardiovascular: Absent: chest pain at rest, chest pain with activity, orthopnea - Respiratory Respiratory: Absent: cough, wheezing - Gastrointestinal Gastrointestinal: Present: as per HPI - Genitourinary Genitourinary: Absent: dysuria, flank pain Results - Labs CBC & BMP: 03/24/17 15:43 03/24/17 15:43 Lab Results: I have reviewed the past 24 hour labs Labs: Bilirubin 0.4, AST 20, ALT 34, alkaline phosphatase 408, lipase 135 - Diagnostic Findings Procedure: Abdominal Flat/Erect: image reviewed by me, report reviewed by me ( non-specific gas pattern), Chest x-ray: image reviewed by me, report reviewed by me (no acute findingss), CT Abdomen and Pelvis: image reviewed by me, report reviewed by me (new abscess formation)
[2017-03-24 17:40] LABS: Apearance,Urine CLOUDY (Clear); Bilirubin,Urine Negative (Negative); Blood, Urine Small mg/dL (Negative); Glucose,Urine (UA) Negative (Negative); Ketones,Urine Negative (Negative); Mucus,Urine Many /LPF (Occasional); Nitrite,Urine Negative (Negative); Protein,Urine 30 MG/DL; RBC,Urine 292 /HPF (0-4); Urine Color Yellow (Yellow); Urine Specific Gravity 1.034 (1.001-1.035); WBC,Urine 2236 /HPF (0-6)
--- NOTE | 2017-03-24 18:05 | CT Report ---
Exam: CT abdomen and pelvis with intravenous contrast Clinical History: 76 years,Female, pelvic and abdominal pain, generalized Technique: Axial computed tomography images of the abdomen and pelvis with intravenous contrast. All CT scans at this facility use one or more dose reduction techniques. Automated exposure control, MA/KV adjustment per patient size (including targeted exam Square dose is matched to indication) or iterative reconstruction technique Comparison: February 28, 2017 Findings: Lower thorax: No acute pathology within the lung bases. Abdomen: Liver: Unremarkable Gallbladder and bile ducts: Surgically absent. Pancreas: Pancreas is normal. Spleen: Spleen is normal. Adrenals: No adrenal mass. Kidneys and ureters: Simple left renal cyst Stomach and bowel: Interval placement of percutaneous gastrostomy tube in satisfactory position. Loops of large and small bowel appear adherent to the right anterior abdominal wall with small fistula tract extending into an air-filled cavity along the peritoneal surface, partially decompressed when compared with interval study but again extends inferiorly into the right hemipelvis abutting the cecum. Mild inflammatory changes along the distal cecum and marianne- ileum, likely reactive. Small cecal abscess measures 2.5 x 2.5 cm in cross section. Interval development of peripherally enhancing air and fluid collection within the right lateral abdomen and flank superficial soft tissues communicating freely with the intraperitoneal abscess which measures approximately 9.0 cm in long dimension. Prior right hemicolectomy and lower quadrant ostomy, unchanged. Scattered colonic diverticula again noted. Appendix: Not clearly visualized. Pelvis: Bladder: Partially decompressed Reproductive: Unremarkable as visualized. Abdomen and pelvis: Intraperitoneal space: As described above Bones/joints: Degenerative changes throughout the spinal axis. Soft tissues: No mass Vasculature: No aortic aneurysm. Atheromatous calcifications noted along the aorta and branch vessels. Lymph nodes: No adenopathy Impression: 1. Interval decompression of the right anterior intraperitoneal abscess by fistulization and formation of superficial soft tissue abscess involving the right lateral abdominal wall and flank. 2. Development of inflammatory changes involving the neocecum and ileum likely reactive and related to residual abscess abutting the descending colon 3. Diverticulitis coli 4. Satisfactory gastrostomy tube placement PROCEDURE INTERPRETED AT [facility] DEPARTMENT OF RADIOLOGY Final Report Signed by: Rufina Dalal MD
--- NOTE | 2017-03-24 18:39 | XRay Report ---
Exam: KUB Exam date: 03/24/2017 4:23 PM Indication: Abdominal pain Comparison: No relevant comparison images Findings: Bowel gas pattern and visceral shadows are normal. No abnormal calcifications within the abdomen or pelvis. No acute osseous abnormalities. Visualized lung bases are unremarkable. Percutaneous gastrostomy appears to be in satisfactory position. Prior cholecystectomy is noted. Evidence of prior colectomy with surgical suture line superimposed over the pelvis. Impression: Nonobstructed bowel gas pattern PROCEDURE INTERPRETED AT [facility] DEPARTMENT OF RADIOLOGY Final Report Signed by: Rufina Dalal MD
[2017-03-24] MEDS ORDERED: ACETAMINOPHEN 325 MG TABLET PO PRN (19:17)
[2017-03-24] MEDS ORDERED: ALBUTEROL 2.5 MG/3 ML NEB RESP TX PRN (19:17)
[2017-03-24] MEDS ORDERED: ONDANSETRON 4 MG/2 ML VIAL IV PRN (19:17)
[2017-03-24] MEDS: SODIUM CHLORIDE 0.9% 1,000 ML IV SCH (19:58)
[2017-03-24] MEDS: LINEZOLID INJ 600 MG in PREMIX 1 EACH IV SCH (22:48)
[2017-03-24] MEDS: PIPERACILLIN/TAZOBACTAM 3,375 MG in SODIUM CHLORIDE 0.9% 100 ML IV SCH (22:49)
[2017-03-25] MEDS: PIPERACILLIN/TAZOBACTAM 3,375 MG in SODIUM CHLORIDE 0.9% 100 ML IV SCH ×3 (05:05→23:40)
[2017-03-25 07:02] LABS: Albumin 1.8 G/DL (3.4-5.0); Bilirubin,Total 0.9 MG/DL (0.2-1.0); Calcium 8.2 MG/DL (8.5-10.1); Osmolality,Calculated 267.7 MOS/KG (273-304); Potassium 4.9 MMOL/L (3.5-5.1); Total Protein 5.3 G/DL (6.4-8.3)
[2017-03-25 07:16] LABS: Basophils % 0.3 % (0.0-0.8); Eosinophils # 0.1 10*3/uL (0.0-0.87); Eosinophils % 0.6 % (0.00-10.9); Hematocrit 27.3 VOL% (35.7-47.0); Hemoglobin 9.1 GM/DL (12.0-16.0); Immature Granulocytes % 1.3 %; Immature Granulocytes Absolute 0.17 #; Lymphocytes # 2.5 10*3/uL (1.4-4.0); Lymphocytes % 18.6 % (21.3-54.2); Mean Corpuscular HGB Conc 33.3 GM/DL (32-36); Mean Corpuscular Hemoglobin 31 PG (27-34); Mean Corpuscular Volume 93.2 FL (87-102); Mean Platelet Volume 9.3 FL (9.6-12.0); Monocytes # 1.2 10*3/uL (0.11-0.8); Monocytes % 9.4 % (1.7-12.7); Neutrophils # 9.2 10*3/uL (1.4-7.4); Neutrophils % 69.8 % (38.7-73.9); Platelet Count 297 T/CUMM (130-400); Red Blood Count 2.93 MC/CUMM (3.8-5.5); Red Cell Distribution Width 18.6 % (9.3-17.3); White Blood Count 13.2 T/CUMM (4-12)
[2017-03-25 07:42] LABS: Band Neutrophils 7 % (0-10); Lymphocytes 18 % (20-55); Segmented Neutrophils 70 % (50-85); Total Cells Counted 100
[2017-03-25 07:43] LABS: Hypochromasia Slight; Microcytosis 1+
--- NOTE | 2017-03-25 08:09 | General Surgery Progress Note ---
Assessment and Plan - Time spent with patient Time spent with patient: Less than 30 minutes (1) Abdominal abscess Status: Acute Assessment and plan: The patient has an abdominal wall abscess which is at the fascia and subcutaneous layer. It is not an intra-abdominal abscess at this point. The intra-abdominal component appears to have nearly completely resolved. She has an area of tenderness and fluctuance of her lateral abdominal wall which is easily palpable and tender. This needs incision and drainage. Overall she is weakened and we had encouraged her in the family to let us lacer in a rehabilitation type facility. Since she is gone home does not appear that she has been able to get up much and is no longer standing or walking. She is become increasingly weakened. Once we get this infectious process dealt with we will once again encourage long-term acute care. She is tolerating her tube feeds. I do not think that she has evidence of an intra-abdominal infection. We discussed incision and drainage of her abscess with patient and her . We discussed the risks in detail and they wish to proceed today. Current Visit: No Subjective Patient reports: Present: feels better, still having pain. Absent: nausea, vomiting, shortness of breath Exam - Constitutional Vitals: Period Temp Pulse Resp BP Sys/Sow Pulse Ox Last 24 Hr 97.6 F-98.9 F 75-91 12-20 83-115/45-66 90-100 General appearance: no acute distress - Head Head exam: Present: normocephalic - Eye Eye exam: Absent: scleral icterus - Respiratory Respiratory exam: Absent: accessory muscle use - GI/Abdominal GI/Abdominal exam: Present: mass, tenderness, soft. Absent: distended, guarding , rebound Results - Labs CBC & BMP: 03/25/17 06:58 03/25/17 05:47 Lab Results: I have reviewed the past 24 hour labs - Diagnostic Findings Procedure: CT Abdomen and Pelvis: image reviewed by me, report reviewed by me Quality Measures - VTE Contraindication to Pharmacological VTE Prophylaxis: High Risk of Bleeding
[2017-03-25] MEDS: LINEZOLID INJ 600 MG in PREMIX 1 EACH IV SCH ×2 (08:29→22:32)
[2017-03-25] MEDS: LEVOTHYROXINE 50 MCG TABLET PO SCH (08:30)
[2017-03-25] MEDS: PANTOPRAZOLE 40 MG TABLET PO SCH (08:30)
[2017-03-25] MEDS: SODIUM CHLORIDE 0.9% 1,000 ML IV SCH ×2 (08:53→12:19)
--- NOTE | 2017-03-25 13:24 | Operative Note ---
Date of procedure: 03/25/17 Pre-op diagnosis: Complex abscess lateral abdominal wall Post-op diagnosis: same Procedure: Incision and drainage of right complex lateral abdominal wall abscess and cutaneous layer Findings and technique: After informed consent was obtained the patient was brought the operating room and placed in supine position. After IV sedation was administered local anesthesia was infiltrated after the abdomen was prepped and draped in usual sterile fashion. Small transverse incision was made over the area of induration where deep within the subcutaneous layer and abscess cavity was entered that was digitally explored and all of the pus evacuated. This was cultured. The abscess cavity was about 4 cm x 5 cm in size. A 10 mm RICK drain was placed in the cavity and brought out through separate stab incision inferiorly. The cavity was irrigated and closed with interrupted 3-0 nylon suture and the RICK drain sutured to the skin. Anesthesia: MAC, local Surgeon / Physician: Nikolas Meeks III. Estimated blood loss: minimal Specimens: other (Cultures) Condition: stable Disposition: PACU Results - Labs CBC & BMP: 03/25/17 06:58 03/25/17 05:47 Discharge Plan - Discharge Medications No Action Clorazepate Dipotassium 7.5 mg PO TID Atorvastatin [Lipitor] 40 mg PO DAILY Levothyroxine Tab [Synthroid Tab] 50 mcg PO DAILY Bisoprolol/Hctz 2.5-6.25 [Ziac 2.5-6.25] 1 tablet PO DAILY Promethazine Tab [Phenergan Tab] 25 mg PO Q6H PRN #40 PRN Reason: Nausea Temazepam [Restoril] 30 mg PO BEDTIME PRN #30 PRN Reason: Sleep Hydrocodone/Acetaminophen [Hydrocodon-Acetaminophen 5-325] 1 tablet PO Q8H PRN PRN Reason: Pain Albuterol Inhaler [Proventil Inhaler] 2 puff INH Q6H PRN PRN Reason: Shortness Of Breath/Wheezing Amoxicillin/Clav Tab [Augmentin Tab] 875 mg PO Q12H tablet - Follow Up or Referral - Forms/Instructions
--- NOTE | 2017-03-25 13:37 | Anesthesia Post-Op ---
Anesthesia Post OP - Post Ansesthetic Evaluation Patient seen in post op: Yes Resp: within normal limits CV: within normal limits Mental: within normal limits Temp: within normal limits [id number]: within normal limits Nausea and Vomiting: within normal limits Pain: within normal limits
[2017-03-25] MEDS ORDERED: ONDANSETRON 4 MG/2 ML VIAL ONE (13:40)
[2017-03-25] MEDS ORDERED: HYDROmorphone 2 MG/1 ML VIAL ONE (13:40)
[2017-03-25] MEDS: HYDROmorphone 2 MG/1 ML VIAL IV PRN ×2 (13:40→14:10)
[2017-03-25] MEDS ORDERED: ONDANSETRON 4 MG/2 ML VIAL IV PRN (13:40)
[2017-03-25] MEDS ORDERED: fentaNYL 100 MCG/2 ML VIAL ONE (13:45)
[2017-03-25] MEDS ORDERED: PROPOFOL 200 MG/20 ML VIAL IV ONE (13:45)
[2017-03-25] MEDS ORDERED: MIDAZOLAM 2 MG/2 ML VIAL ONE (13:45)
[2017-03-25] MEDS ORDERED: KETAMINE 500 MG/10 ML VIAL ONE (13:46)
[2017-03-25] MEDS ORDERED: LACTATED RINGERS 1,000 ML IV SCH (14:00)
--- NOTE | 2017-03-25 16:46 | Infectious Disease Consult ---
Assessment and Plan (1) Abdominal abscess Status: Acute Assessment and plan: Agree with Zosyn and linezolid. Follow-up cultures and adjust antibiotics accordingly. Thank you very much for the consult. Will follow. Discussed with patient's daughter at bedside Current Visit: No (2) Colon cancer Status: Acute Current Visit: No History of Present Illness Chief complaint: Abdominal abscess History of present illness: Ms. Westbrook is a 76 year old female Who I saw during her last admission last month with abdominal abscess. She had colon cancer resection and following her surgery she developed an abdominal abscess. Cultures are positive including for VRE. During her last admission she was on linezolid and I believe Zosyn and then on discharge was continued on linezolid and given Augmentin. She is to complete 4 weeks of antibiotic therapy given the size of the abscess. Patient went home from swing bed about a week ago and was doing okay except for the fact that she did not get the linezolid due to issues with prior authorization so she was only on Augmentin. Yesterday her daughter noticed a hard lump to the right side of the abdomen and this was quite tender. They brought the patient to the emergency room last night and patient was admitted. She has not had any fever. CT scan shows abscess extended to subcutaneous tissues of right side of abdomen. Patient was taken to the OR today and had I&D done. I am asked to assist with antibiotics. Home Medications Medication Instructions Recorded Confirmed Type Atorvastatin [Lipitor] 40 mg PO DAILY 01/21/17 03/24/17 History Bisoprolol/Hctz 2.5-6.25 [Ziac 1 tablet PO DAILY 01/21/17 03/24/17 History 2.5-6.25] Clorazepate Dipotassium 7.5 mg PO TID 01/21/17 03/24/17 History Levothyroxine Tab [Synthroid Tab] 50 mcg PO DAILY 01/21/17 03/24/17 History Albuterol Inhaler [Proventil 2 puff INH Q6H PRN 02/04/17 03/24/17 History Inhaler] Amoxicillin/Clav Tab [Augmentin 875 mg PO Q12H tablet 03/10/17 03/24/17 Rx Tab] Promethazine Tab [Phenergan Tab] 25 mg PO Q6H PRN #40 03/10/17 03/24/17 Rx Temazepam [Restoril] 30 mg PO BEDTIME PRN #30 03/10/17 03/24/17 Rx Hydrocodone/Acetaminophen 1 tablet PO Q8H PRN 03/24/17 03/24/17 History [Hydrocodon-Acetaminophen 5-325] Allergies Allergy/AdvReac Type Severity Reaction Status Date / Time No Known Allergies Allergy Verified 03/24/17 14:49 12 point system: reviewed and no additional remarkable complaints except as stated (Poor appetite; rest of comprehensive review of systems negative apart from what was mentioned in the HPI) Medical,Surgical,& Family Hx - Medical History Cardio: History of: Hypertension (MEDICATION) No history of: Cardiac Dysrhythmia, CHF, [place], Pacemaker, Valvular Heart Disease Psychological: History of: Anxiety Disorders (MEDICATION), Depression ( MEDICATION) Neurology: No history of: Brain Aneurysm, Migraine, Peripheral Neuropathy, Seizures HEENT: Comment Only: Dental Problems (UPPPER AND LOWER) Endocrine: History of: Dyslipidemia Rheumatology: History of;: Gout Respiratory: History of: Bronchitis, COPD No history of: Obstructive Sleep Apnea Comment Only: Respiratory Problems (HAD FLU VACCINE UP TO DATE ON PNUEMONIA) Genitourinary: History of: Bladder Problem (HAD BLADDER TACT WITH MESH), Recurring Urinary Tract Infections Gastrointestinal: History of: GERD, Polyps (HAD POLYPS REMOVED), GI Problems ( Chronic constipation) Musculoskeletal: History of: Musculoskeletal Problems (BURSITIS IN LEFT HIP) Hematology: No history of: Blood Transfusion Reaction Other: History of: Vancomycin-Resistant Enterococci No history of: Anesthesia Reactions - Surgical History Cardiac Surgeries: Patient Denies: Cardiac Catheterization Neurologic Surgeries: Patient denies: Brain Aneurysm HEENT Surgeries: Surgical HX of: Eye Surgery (BILATERAL CATARACT SURGERY) Abdominal Surgeries: Surgical HX of: Abdominal Surgery (Colectomy with colostomy in January 2017; subsequent I&D abscess/fistula x2), Appendectomy, Cholecystectomy, Colonoscopy (REMOVED 9 INCHES OF COLON) Reproductive Surgeries: Surgical HX of;: Hysterectomy Orthopedic Surgeries: Surgical HX of;: Total Knee Replacement (LEFT KNEE REPLACEMENT) - Family History Family History: Reports;: Family Stroke (MOTHER) - Social History Smoking Status: Current every day smoker Frequency of Alcohol Use: None Type of Drug Use: None Infectious Disease Exam H&P - Constitutional Vitals: Vital Signs Temp Pulse Resp BP Pulse Ox 97.4 F L 73 18 82/53 96 03/25/17 14:45 03/25/17 15:15 03/25/17 15:15 03/25/17 15:15 03/25/17 14:45 Intake and Output 03/25/17 03/25/17 03/25/17 07:59 15:59 23:59 Intake Total 100 / 100 1300 / 1300 Output Total 330 / 330 Balance 100 / 100 970 / 970 Intake: IV 100 / 100 1300 / 1300 Lr 1,000 ml @ 20 mls/hr 900 / 900 IV .Q24H IJEOMA Rx#: [id number] Zyvox Inj 600 mg In 300 / 300 Premix 1 Each @ 300 mls/ hr IV Q12H IJEOMA Rx#: [id number] Zosyn 3,375 mg In Ns 100 100 / 100 100 / 100 ml @ 25 mls/hr IV Q8H IJEOMA Rx#:[id number] Output: Drainage 30 / 30 Right Lower Abdomen RICK#1 30 / 30 Stool 300 / 300 Other: Voiding Method Brief # Voids 1 1 Weight 55.701 kg Patient Weight 03/25/17 23:59 Weight 55.701 kg Exam: General: Patient relatively comfortable HEENT: Mucous membranes pale pink and moist, anicteric acyanotic, MARTIN, no oropharyngeal exudates Neck: Supple, no thyroid gland enlargement Respiratory system: Breath sounds vesicular, no crepitations or wheezes Cardiovascular: Normal S1 and S2, no murmurs appreciated Abdomen: Colostomy to right lower quadrant, PEG tube present, clean bandage over right-sided surgical wound, normal bowel sounds, soft, mildly tender in right flank, RICK drain with brownish output, no organomegaly or mass appreciated Genitourinary: No suprapubic pain or bladder distention Extremities: no edema Skin: No rash Reports - Labs CBC & BMP: 03/25/17 06:58 03/25/17 05:47 Labs: Laboratory Results - last 24 hr 03/24/17 03/25/17 03/25/17 17:13 05:47 06:58 WBC 13.2 H D RBC 2.93 L Hgb 9.1 L Hct 27.3 L MCV 93.2 MCH 31 MCHC 33.3 RDW 18.6 H Plt Count 297 MPV 9.3 L Neut % (Auto) 69.8 Lymph % (Auto) 18.6 L [place] % (Auto) 9.4 Eos % (Auto) 0.6 Baso % (Auto) 0.3 Neut # (Auto) 9.2 H Lymph # (Auto) 2.5 [place] # (Auto) 1.2 H Eos # (Auto) 0.1 Baso # (Auto) 0.0 Total Counted 100 Immature Gran % 1.3 Nucleated RBC % 0.0 Immature Gran # 0.17 Segmented Neutrophils 70 Band Neutrophils 7 Lymphocytes 18 L Monocytes 5 Nucleated RBCs # 0.00 Immature Plt Fraction 0.0 Hypochromasia Slight Microcytosis 1+ Morphology Comment Sodium 131 L Potassium 4.9 Chloride 96 L Carbon Dioxide 24 Anion Gap 15.9 H BUN 29 H Creatinine 0.90 GFR Calculation 56 BUN/Creatinine Ratio 32.00 H Glucose 98 Calculated Osmolality 267.7 L Calcium 8.2 L Total Bilirubin 0.90 AST 25 ALT 34 Alkaline Phosphatase 406 H Total Protein 5.3 L Albumin 1.8 L Globulin 3.5 Albumin/Globulin Ratio 0.5 L Urine Color Yellow Urine Appearance Cloudy Urine pH 5.0 Ur Specific [place] 1.034 Urine Protein 30 Urine Glucose (UA) Negative Urine Ketones Negative Urine Blood Small Urine Nitrate Negative Urine Bilirubin Negative Urine Urobilinogen 2.0 H Urine Leukocytes Moderate H Urine RBC 292 Urine WBC 2236 Urine WBC Clumps Many Urine Mucus Many Ur Culture Indicated? Results to follow - Reports Microbiology: Microbiology 03/24/17 Unknown Urine Culture - Preliminary Urine,Catheterized No Growth at 12 hours. - Diagnostic Findings Procedure: Chest x-ray: report reviewed by me (Normal), CT Abdomen and Pelvis: report reviewed by me (Abscess to right side)
[2017-03-25] MEDS ORDERED: TEMAZEPAM 15 MG CAPSULE PO PRN (18:32)
[2017-03-25] MEDS ORDERED: LACTATED RINGERS 1,000 ML IV ONE (20:41)
[2017-03-26] MEDS: PIPERACILLIN/TAZOBACTAM 3,375 MG in SODIUM CHLORIDE 0.9% 100 ML IV SCH ×3 (04:05→21:23)
[2017-03-26] MEDS: SODIUM CHLORIDE 0.9% 1,000 ML IV SCH ×6 (04:05→22:56)
[2017-03-26] MEDS: MORPHINE 2 MG/1 ML SYRINGE IV PRN ×3 (04:28→21:23)
--- NOTE | 2017-03-26 09:02 | Physician Query Form ---
CLICK EDIT DOCUMENT TO SELECT QUERY ANSWER --> OK --> SIGN Criss Amanda RN, CCDS Certified Clinical Integrated Program Teacher W) [phone] (f) [phone] [email or web address] PROVIDERS: Make your selection(s) from the choices in EACH section by typing an "x" and enter comments in the comment section. Please use your independent medical judgment in providing your response. This request does not imply that any particular answer is desired or expected. CLINICAL INDICATORS: (Providers should not edit this section) The medical record indicates that the patient was admitted for an abscess, "She had colon cancer resection and following her surgery she developed an abdominal abscess' and she would have an ID done in surgery. Please clarify the following: ( ) The above is an inherent, integral or routinely potential/expected occurrence of surgery (not a complication) ( x) The above was an inadvertent, unintended, iatrogenic, or unexpected occurrence of surgery (complication) ( ) The above is a complication but not due to the surgery, specify cause: ( ) Other, please specify: ( ) Clinically unable to determine COMMENTS: PLEASE ALSO DOCUMENT RESPONSE IN PROGRESS NOTES AND/OR DISCHARGE SUMMARY Use of terms such as suspected, likely, or probable (associated with a specific diagnosis that is being evaluated, monitored, or treated as if it exists) are acceptable and can be restated in the discharge summary if not ruled out. MTDD
--- NOTE | 2017-03-26 09:08 | Event Note ---
She has an enterocutaneous fistula. The intra-abdominal component or abscess cavity is largely resolved however she developed a new subcutaneous abscess which I drained yesterday. This has feculent material within it. I tried placing a closed suction drain to make this more manageable but I think we will need to remove this and open the incision and place a second ostomy appliance. We will continue antibiotics. Cultures are pending. She appears to be maintaining her nutritional state and has tube feeds. We will continue this. She is gotten weak at home and I think she will eventually need rehabilitation or swing bed placement. They were not happy with a swing bed at [facility].
[2017-03-26] MEDS: LINEZOLID INJ 600 MG in PREMIX 1 EACH IV SCH ×2 (09:49→20:18)
--- NOTE | 2017-03-26 11:14 | Infectious Disease Progress ---
Assessment and Plan (1) Abdominal abscess Status: Acute Assessment and plan: Continue Zosyn and linezolid. Follow-up final cultures and adjust antibiotics accordingly. Current Visit: No (2) Colon cancer Status: Acute Current Visit: No Infectious Disease - PN: Subj Interval history: Patient doing fair, says she had a rough night as there was a lot of leakage of stool around the drain in her right side. She has not fever. Trying to eat a little more. Infectious Disease Exam (PN) - Constitutional Vitals: Temp Pulse Resp BP Pulse Ox 98.3 F 71 16 103/64 93 L 03/26/17 07:15 03/26/17 07:15 03/26/17 07:15 03/26/17 07:15 03/26/17 07:15 General appearance: no acute distress Exam: General appearance: no acute distress - Eye Eye exam: Present: EOMI. no icterus Pupils: Present: MARTIN - ENT ENT exam: no oral exudates - Respiratory Respiratory exam: vesicular BS, no crepitations or wheezes - Cardiovascular Cardiovascular exam: regular rate and rhythm, no murmurs - GI/Abdominal GI/Abdominal exam: Colostomy noted, PEG present, drain to right side with stool stained purulent material, normal bowel sounds, soft, non-tender, no organomegaly or mass - Extremities Exam Extremities exam: no edema - Skin Skin exam: no rash Results - Labs CBC & BMP: 03/25/17 06:58 03/25/17 05:47 Lab Results: I have reviewed the past 24 hour labs (Gram-negative rods growing from abscess culture) Quality Measures - VTE Contraindication to Pharmacological VTE Prophylaxis: High Risk of Bleeding
[2017-03-26] MEDS: PANTOPRAZOLE 40 MG TABLET PO SCH (11:20)
[2017-03-26] MEDS: LEVOTHYROXINE 50 MCG TABLET PO SCH (11:20)
[2017-03-26] MEDS: FLUCONAZOLE 200 MG TABLET PO SCH (16:28)
[2017-03-26 18:06] LABS: Calcium 7.3 MG/DL (8.5-10.1); Osmolality,Calculated 266.2 MOS/KG (273-304); Potassium 3.9 MMOL/L (3.5-5.1)
[2017-03-27] MEDS: PIPERACILLIN/TAZOBACTAM 3,375 MG in SODIUM CHLORIDE 0.9% 100 ML IV SCH ×3 (04:49→21:21)
[2017-03-27] MEDS: SODIUM CHLORIDE 0.9% 1,000 ML IV SCH ×2 (04:51→15:04)
[2017-03-27 05:14] LABS: Calcium 7.5 MG/DL (8.5-10.1); Potassium 3.7 MMOL/L (3.5-5.1)
[2017-03-27 06:48] LABS: Basophils % 0.3 % (0.0-0.8)
[2017-03-27 06:58] LABS: Eosinophils # 0.1 10*3/uL (0.0-0.87); Eosinophils % 1.9 % (0.00-10.9); Immature Granulocytes % 1.7 %; Immature Granulocytes Absolute 0.11 #; Lymphocytes % 30.1 % (21.3-54.2); Mean Corpuscular HGB Conc 33.3 GM/DL (32-36); Mean Corpuscular Hemoglobin 32 PG (27-34); Mean Corpuscular Volume 94.6 FL (87-102); Mean Platelet Volume 9.4 FL (9.6-12.0); Monocytes # 0.5 10*3/uL (0.11-0.8); Monocytes % 7.4 % (1.7-12.7); Neutrophils # 3.8 10*3/uL (1.4-7.4); Neutrophils % 58.6 % (38.7-73.9); Platelet Count 270 T/CUMM (130-400); Red Cell Distribution Width 18.1 % (9.3-17.3)
[2017-03-27 07:00] LABS: Red Blood Count 2.22 MC/CUMM (3.8-5.5); White Blood Count 6.5 T/CUMM (4-12)
[2017-03-27 07:14] LABS: Band Neutrophils 4 % (0-10); Hypochromasia 1+; Lymphocytes 30 % (20-55); Segmented Neutrophils 61 % (50-85); Total Cells Counted 100
[2017-03-27 07:15] LABS: Microcytosis 1+; Platelet Estimate Normal
[2017-03-27] MEDS: LINEZOLID INJ 600 MG in PREMIX 1 EACH IV SCH ×2 (09:28→19:45)
[2017-03-27] MEDS: FLUCONAZOLE 200 MG TABLET PO SCH (09:30)
[2017-03-27] MEDS: PANTOPRAZOLE 40 MG TABLET PO SCH (09:30)
[2017-03-27] MEDS: LEVOTHYROXINE 50 MCG TABLET PO SCH (09:30)
--- NOTE | 2017-03-27 10:54 | Event Note ---
This patient was readmitted for right lateral abdominal wall abscess that was drained and is now draining succus. Ostomy appliances have been placed over both draining wounds. Continue current care with antibiotics and pouching of the fistula sites.
[2017-03-27] MEDS: MORPHINE 2 MG/1 ML SYRINGE IV PRN ×2 (18:50→23:02)
[2017-03-28] MEDS: SODIUM CHLORIDE 0.9% 1,000 ML IV SCH (02:17)
[2017-03-28 03:08] LABS: Basophils % 0.3 % (0.0-0.8); Eosinophils # 0.1 10*3/uL (0.0-0.87); Eosinophils % 1.7 % (0.00-10.9); Hematocrit 22.1 VOL% (35.7-47.0); Hemoglobin 7.1 GM/DL (12.0-16.0); Immature Granulocytes Absolute 0.16 #; Lymphocytes # 2.2 10*3/uL (1.4-4.0); Lymphocytes % 27.9 % (21.3-54.2); Mean Corpuscular HGB Conc 32.1 GM/DL (32-36); Mean Corpuscular Hemoglobin 31 PG (27-34); Mean Corpuscular Volume 95.3 FL (87-102); Mean Platelet Volume 8.7 FL (9.6-12.0); Monocytes # 0.4 10*3/uL (0.11-0.8); Monocytes % 5.5 % (1.7-12.7); Neutrophils # 4.9 10*3/uL (1.4-7.4); Neutrophils % 62.6 % (38.7-73.9); Platelet Count 275 T/CUMM (130-400); Red Blood Count 2.32 MC/CUMM (3.8-5.5); Red Cell Distribution Width 18.1 % (9.3-17.3); White Blood Count 7.8 T/CUMM (4-12)
[2017-03-28] MEDS: PIPERACILLIN/TAZOBACTAM 3,375 MG in SODIUM CHLORIDE 0.9% 100 ML IV SCH ×3 (04:04→23:16)
[2017-03-28 05:23] LABS: Band Neutrophils 4 % (0-10); Eosinophils 1 % (0-10); Hypochromasia 1+; Lymphocytes 29 % (20-55); Microcytosis 1+; Platelet Estimate Normal; Segmented Neutrophils 62 % (50-85); Total Cells Counted 100
[2017-03-28] MEDS: FLUCONAZOLE 200 MG TABLET PO SCH (12:45)
[2017-03-28] MEDS: LINEZOLID INJ 600 MG in PREMIX 1 EACH IV SCH ×2 (12:45→20:59)
[2017-03-28] MEDS: LEVOTHYROXINE 50 MCG TABLET PO SCH (12:47)
[2017-03-28] MEDS: PANTOPRAZOLE 40 MG TABLET PO SCH (12:47)
[2017-03-28] MEDS: ENOXAPARIN 40 MG/0.4 ML SYRINGE SUBCUT SCH (13:43)
[2017-03-29] MEDS: MORPHINE 2 MG/1 ML SYRINGE IV PRN (04:02)
[2017-03-29] MEDS: PIPERACILLIN/TAZOBACTAM 3,375 MG in SODIUM CHLORIDE 0.9% 100 ML IV SCH (05:10)
[2017-03-29 05:38] LABS: Magnesium 1.2 MG/DL (1.8-2.4); Phosphorous 3.9 MG/DL (2.5-4.9)
[2017-03-29] MEDS: LINEZOLID INJ 600 MG in PREMIX 1 EACH IV SCH (08:17)
--- NOTE | 2017-03-29 08:36 | Event Note ---
This is a delayed entry note for an encounter I had with the patient on 2016. No events. Continue current care
--- NOTE | 2017-03-29 08:37 | Event Note ---
The patient continues to remain stable. She is afebrile with normal vital signs. She had a slight hypotension during this hospital stay but it resolved with some IV fluids. She is currently on IV antibiotics. I reviewed her CT scan from admission and also based on how she looks right now I think she could be transitioned to oral antibiotics now that the source control has been obtained and she could be transferred to her next phase of care. Ideally this would be in monitored setting such as a swing bed but the patient is unsure that she wants to go to a swing bed unit and is preferring to go home. We will get social work involved today and also discussed this with Dr. Leach to see what her choice of antibiotics will be
[2017-03-29] MEDS: LEVOTHYROXINE 50 MCG TABLET PO SCH (08:55)
[2017-03-29] MEDS: FLUCONAZOLE 200 MG TABLET PO SCH (08:55)
[2017-03-29] MEDS: PANTOPRAZOLE 40 MG TABLET PO SCH (08:55)
[2017-03-29] MEDS ORDERED: CIPROFLOXACIN 500 MG TABLET PEG SCH (09:00)
[2017-03-29] MEDS ORDERED: metroNIDAZOLE 500 MG TABLET PEG SCH (09:00)
[2017-03-29] MEDS ORDERED: CIPROFLOXACIN 500 MG TABLET PO SCH (09:20)
[2017-03-29] MEDS ORDERED: metroNIDAZOLE 500 MG TABLET PO SCH (09:20)
--- NOTE | 2017-03-29 10:23 | Discharge Summary ---
Hospital Course - Hospital Course Hospital Course: The patient is a 76-year-old female who was readmitted with complex abscess of the right lateral abdominal wall which required incision and drainage with Dr. Dr. Constantino GROSS on 03/25/2017. Postoperatively, the wound was not draining well from the RICK drain, so this was removed and the incision site was opened with an ostomy appliance applied for drainage. She received perioperative antibiotics and infectious disease was consulted for previous VRE; isolation precautions in place. She agrees from her urine. She initially presented with leukocytosis, hyponatremia and volume depletion all of which resolved with IV fluids and the antibiotic treatment as above. We continued tube feeds via PEG and oral supplementation while inpatient. Ultimately, the patient was stable and ready for discharge. Despite multiple conversations about the benefits of swing bed and/or rehab for better medical management as well as treatment of her recent worsening debility, the patient refused requesting to discharge home with continued home health services. This request was honored. She will follow Dr. Constantino Houser in approximately 1 week. She will continue cipro, flagyl and linezolid x 2 wks plus one week of diflucan per Dr. Leach recommendations which we appreciate. 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 (5) UTI (urinary tract infection) Status: Acute (6) Volume depletion Status: Acute Specialty Discharge - Follow Up or Referrals Follow up with: Nikolas Meeks III., MD [Physician] - 04/05/17 9:00 am Discharge Plan - Discharge Data Disposition: Disch To Home/Self Care Condition at Discharge: Stable Discharge Diet: advance to your usual diet, other (Continue supplemental tube feedings per PEG) Activity: resume usual activities as tolerated, other (Continue home health physical therapy and Occupational Therapy) Hygiene: may shower Contact your physician if you experience:: fever over 101, Difficulty voiding, Redness or swelling, Nausea/Vomiting, Shortness of breath, Bleeding, pain uncontrolled by pain medications Wound / Dressing Care Instructions: 1. Routine ostomy care to ileostomy site. 2. Change ostomy appliance over right lateral abdominal wall drainage site every other day; record drainage. - Discharge Medications New metroNIDAZOLE TAB [Flagyl Cap/Tab] 500 mg PO TID #42 tablet Linezolid Tab [Zyvox Tab] 600 mg PO Q12HR #28 tablet HYDROcodone/ACETAMIN 7.5-325 [[place] 7.5-325] 1 tablet PO Q4H PRN #30 tablet PRN Reason: Pain Moderate To Severe (4-10) Ciprofloxacin Tab [Cipro Tab] 500 mg PO Q12HR #28 tablet Fluconazole Tab [Diflucan Tab] 100 mg PO DAILY #7 tablet Continue Clorazepate Dipotassium 7.5 mg PO TID Atorvastatin [Lipitor] 40 mg PO DAILY Levothyroxine Tab [Synthroid Tab] 50 mcg PO DAILY Bisoprolol/Hctz 2.5-6.25 [Ziac 2.5-6.25] 1 tablet PO DAILY Promethazine Tab [Phenergan Tab] 25 mg PO Q6H PRN #40 PRN Reason: Nausea Temazepam [Restoril] 30 mg PO BEDTIME PRN #30 PRN Reason: Sleep Albuterol Inhaler [Proventil Inhaler] 2 puff INH Q6H PRN PRN Reason: Shortness Of Breath/Wheezing Discontinued Hydrocodone/Acetaminophen [Hydrocodon-Acetaminophen 5-325] 1 tablet PO Q8H PRN PRN Reason: Pain Amoxicillin/Clav Tab [Augmentin Tab] 875 mg PO Q12H tablet - Follow Up or Referral Follow Up: Nikolas Meeks III., MD [Physician] - 04/05/17 9:00 am - Forms/Instructions Instructions: Ileostomy Care (DC), Abscess (GEN) Exam - Constitutional Vitals: Period Temp Pulse Resp BP Sys/Sow Pulse Ox Last 24 Hr 97.6 F-99.3 F 75-88 18-20 91-122/39-62 94-97 General appearance: no acute distress - Respiratory Respiratory exam: Present: clear to auscultation bilaterally - Cardiovascular Cardiovascular exam: Present: regular rate and rhythm - GI/Abdominal GI/Abdominal exam: Present: normal bowel sounds, tenderness (Minimal residual tenderness over the lateral abdominal wall), soft, other (Ileostomy is pink and patent with ostomy bag in place. No evidence of complication. Right lateral abdominal wall with minimal drainage which is expressible into the ostomy appliance.). Absent: distended, firm - Extremities Exam Extremities exam: Absent: calf tenderness, edema - Neurological Exam Neurological exam: Present: alert, oriented X3 - Psychiatric Psychiatric exam: Present: normal affect, normal mood - Skin Skin exam: Present: normal color, warm Discharge Results Procedures and tests throughout hospitalization: Pending Orders 03/24/17 Urine Culture Routine 03/24/17 15:43 Blood Culture Stat 03/25/17 Abscess Culture Routine Anaerobic Culture Routine Blood cultures preliminarily no growth at 3 days Urine culture greater than 100,000 yeast; speciation pending Abdominal abscess culture: Enterobacter aerogenes; gram-positive cocci with speciation pending Labs on day of discharge: Labs from last 24 hours 03/29/17 04:04 Phosphorus 3.9 Magnesium 1.2 L Prealbumin 12.0 L Preliminary micro results at discharge 03/25/17 Unknown Abscess Culture - Preliminary Abdomen - Abscess Enterobacter aerogenes Gram Positive Cocci 03/24/17 15:43 Blood Culture - Preliminary Blood No growth at 3 days 03/24/17 15:43 Blood Culture - Preliminary Blood No growth at 3 days 03/24/17 Unknown Urine Culture - Preliminary Urine,Catheterized Yeast - Imaging and Cardiology Procedure: CT Abdomen and Pelvis: image reviewed by me, report reviewed by me ( Right lateral abdominal wall abscess; small cecal abscess; decompression of the previous intraperitoneal abscess) DS: Provider Date of admission: 03/24/17 17:03 Primary care physician: Reed Friedman, Attending physician on admission: Nikolas Meeks III., Consults: 03/24/17 19:17 Consult to Physician [CONS] Routine Comment: VRE infection; patient known to you Consulting Provider: Brenda Pa Consulting Provider Notified: Yes When should Consulting Provider be notified: Now Person Notified: ben casper Date Notified: 03/25/17 Time Notified: 08:35 03/25/17 11:24 Consult to Case Mgmt/Social Srvs [CONS] Routine Reason for Case Mgmt/Social Srvs: Discharge Planning Consult Comment: likely rehab Consult to Occupational Therapy [CONS] Routine Reason for Occupational Therapy: Evaluate and Treat Consult to Physical Therapy [CONS] Routine Reason for Physical Therapy: Evaluate and Treat 03/26/17 08:55 Consult to Dietitian [CONS] Routine Reason for Dietitian: TF-Initiate/Manage Consult Comment: PEG tube Discharging clinician: Glo Wilks PA-C
[2017-03-29] MEDS: ENOXAPARIN 40 MG/0.4 ML SYRINGE SUBCUT SCH (10:50)
[2017-03-29 11:35] VITALS: BP 117/59
--- NOTE | 2017-03-29 12:12 | Infectious Disease Progress ---
Assessment and Plan (1) Abdominal abscess Status: Acute Assessment and plan: 1. Discontinue Zosyn 2. Start ciprofloxacin 500 g twice a day 3. Start Flagyl 500 mg 3 times a day 4. Can continue linezolid; this will cover gram-positive cocci being isolated 5. Above antibiotics can be continued for 10-14 days Current Visit: No (2) Colon cancer Status: Acute Current Visit: No Infectious Disease - PN: Subj Interval history: Patient doing fair, she says she does not feel too good today, week. Anorexic. She has not had fever. Denies abdominal pain. Infectious Disease Exam (PN) - Constitutional Vitals: Temp Pulse Resp BP Pulse Ox 97.3 F L 76 20 117/59 95 03/29/17 11:34 03/29/17 11:34 03/29/17 11:34 03/29/17 11:34 03/29/17 11:34 General appearance: no acute distress Exam: General appearance: no acute distress just frail - Eye Eye exam: Present: EOMI. no icterus Pupils: Present: MARTIN - ENT ENT exam: no oral exudates - Respiratory Respiratory exam: vesicular BS, no crepitations or wheezes - Cardiovascular Cardiovascular exam: regular rate and rhythm, no murmurs - GI/Abdominal GI/Abdominal exam: Ileostomy noted, also enterocutaneous fistula to right lateral abdomen with thin brownish fluid, PEG present, normal bowel sounds, soft , non-tender, no organomegaly or mass appreciated - Extremities Exam Extremities exam: no edema - Skin Skin exam: no rash Results - Labs CBC & BMP: 03/28/17 02:54 03/27/17 03:41 Lab Results: I have reviewed the past 24 hour labs (Enterobacter originates from abscess culture along with gram-positive cocci and anaerobic gram negative jarad) Quality Measures - VTE Contraindication to Pharmacological VTE Prophylaxis: High Risk of Bleeding Specialty Discharge - Follow Up or Referrals Follow up with: Nikolas Meeks III., MD [Physician] - 04/05/17 9:00 am
== END 2017-03-29 15:35 | disposition home health service (06) | DRG 863 ==
LOC: EDUNIT# → EDBD → N.ED 14:39 → N.EDINP 17:03 → N.3E 18:39
PROVIDERS: ADMIT Surgery; ATTEND Surgery

== ENCOUNTER 2017-04-04 10:08 | Inpatient (IN) ==
[2017-04-04] MEDS ORDERED: SODIUM CHLORIDE 0.9% 1,000 ML IV STA (10:41)
[2017-04-04] MEDS ORDERED: ONDANSETRON 4 MG/2 ML VIAL IV STA (10:41)
[2017-04-04] MEDS ORDERED: ONDANSETRON 4 MG/2 ML VIAL ONE (11:04)
[2017-04-04 11:27] LABS: Basophils # 0.1 10*3/uL (0.0-0.2); Basophils % 0.3 % (0.0-0.8); Hematocrit 35.5 VOL% (35.7-47.0); Hemoglobin 11.6 GM/DL (12.0-16.0); Immature Granulocytes % 4.7 %; Immature Granulocytes Absolute 1.08 #; Lymphocytes # 2.6 10*3/uL (1.4-4.0); Lymphocytes % 11.3 % (21.3-54.2); Mean Corpuscular HGB Conc 32.7 GM/DL (32-36); Mean Corpuscular Hemoglobin 32 PG (27-34); Mean Corpuscular Volume 97.3 FL (87-102); Mean Platelet Volume 9.3 FL (9.6-12.0); Monocytes % 4.2 % (1.7-12.7); NRBC # 0.02 10*3/uL; Neutrophils # 18.4 10*3/uL (1.4-7.4); Neutrophils % 79.5 % (38.7-73.9); Platelet Count 903 T/CUMM (130-400); Red Blood Count 3.65 MC/CUMM (3.8-5.5); Red Cell Distribution Width 19.6 % (9.3-17.3); White Blood Count 23.2 T/CUMM (4-12)
[2017-04-04] MEDS ORDERED: PROMETHAZINE 25 MG/1 ML VIAL ONE (11:40)
[2017-04-04] MEDS ORDERED: PROMETHAZINE 25 MG/1 ML VIAL IM STA (11:42)
[2017-04-04 11:47] LABS: Albumin 2.6 G/DL (3.4-5.0); Bilirubin,Total 0.4 MG/DL (0.2-1.0); Calcium 7.8 MG/DL (8.5-10.1); Lactic Acid 8.8 MMOL/L (0.4-2.0); Magnesium 1.8 MG/DL (1.8-2.4); Osmolality,Calculated 277.2 MOS/KG (273-304); Potassium 4.3 MMOL/L (3.5-5.1); Total Protein 6.4 G/DL (6.4-8.3)
[2017-04-04 12:05] LABS: Band Neutrophils 1 % (0-10); Giant Platelets Few; Hypochromasia Slight; Lymphocytes 12 % (20-55); Macrocytosis Slight; Platelet Estimate Increased; Polychromasia Slight; Segmented Neutrophils 81 % (50-85); Total Cells Counted 100
[2017-04-04 12:22] LABS: Apearance,Urine Slightly Hazy (Clear); Bacteria,Urine Occasional /HPF (Few); Blood, Urine Negative (Negative); Glucose,Urine (UA) Negative (Negative); Hyaline Casts,Urine 6 /LPF (0-3); Ketones,Urine Negative (Negative); Mucus,Urine Occasional /LPF (Occasional); Nitrite,Urine Negative (Negative); Protein,Urine Negative; RBC,Urine 6 /HPF (0-4); Squamous Epithelial Cell,Urine Occasional /HPF (0-10); Urine Color Amber (Yellow); Urine Urobilinogen < 2.0 EU/DL (0.2-1.0); WBC,Urine 26 /HPF (0-6)
[2017-04-04 12:23] LABS: Bilirubin,Urine Small mg/dL (Negative)
[2017-04-04] MEDS ORDERED: SODIUM CHLORIDE 0.9% 1,500 ML IV ONE (12:50)
[2017-04-04] MEDS ORDERED: PIPERACILLIN/TAZOBACTAM 3,375 MG in SODIUM CHLORIDE 0.9% 100 ML IV SCH (13:00)
[2017-04-04] MEDS ORDERED: PIPERACILLIN/TAZOBACTAM 3,375 MG VIAL IV ONE (13:09)
[2017-04-04] MEDS: SODIUM CHLORIDE 0.9% 1,000 ML IV SCH (13:45)
[2017-04-04] MEDS ORDERED: ONDANSETRON 4 MG/2 ML VIAL IV PRN ×2 (15:14→15:55)
[2017-04-04] MEDS ORDERED: ACETAMINOPHEN 325 MG TABLET PO PRN ×2 (15:14→15:55)
[2017-04-04] MEDS ORDERED: ENOXAPARIN 30 MG/0.3 ML SYRINGE SUBCUT SCH (15:55)
[2017-04-04] MEDS ORDERED: SODIUM CHLORIDE 0.9% 1,000 ML IV SCH (15:55)
[2017-04-04] MEDS ORDERED: VANCOMYCIN INJ 1,000 MG in SODIUM CHLORIDE 0.9% 250 ML IV ONE (15:55)
[2017-04-04 16:17] LABS: Risk Ratio 2.68; VLDL CHOLESTEROL 42.4 MG/DL
[2017-04-04 17:05] LABS: Free T4 (Free Thyroxine) 1.49 NG/DL (0.76-1.46); Thyroid Stimulating Hormone 2.39 uIU/ml (0.358-3.74)
[2017-04-04] MEDS: PANTOPRAZOLE 40 MG TABLET PO SCH (17:48)
[2017-04-04] MEDS: ENOXAPARIN 30 MG/0.3 ML SYRINGE SUBCUT SCH (17:49)
[2017-04-04] MEDS: PIPERACILLIN/TAZOBACTAM 3,375 MG in SODIUM CHLORIDE 0.9% 100 ML IV SCH (17:52)
[2017-04-04] MEDS: MORPHINE 2 MG/1 ML SYRINGE IV PRN (17:55)
[2017-04-04] MEDS: PROMETHAZINE 25 MG TABLET PO PRN (21:11)
[2017-04-04] MEDS ORDERED: SODIUM CHLORIDE 0.9% 500 ML IV ONE (22:10)
[2017-04-04] MEDS: TEMAZEPAM 15 MG CAPSULE PO PRN (22:25)
[2017-04-04] MEDS: CLORAZEPATE 3.75 MG TABLET PO SCH (22:25)
[2017-04-05] MEDS: SODIUM CHLORIDE 0.9% 1,000 ML IV SCH ×3 (00:05→20:45)
[2017-04-05] MEDS: PROMETHAZINE 25 MG TABLET PO PRN (03:35)
[2017-04-05] MEDS: MORPHINE 2 MG/1 ML SYRINGE IV PRN ×2 (03:35→10:33)
[2017-04-05] MEDS: PIPERACILLIN/TAZOBACTAM 3,375 MG in SODIUM CHLORIDE 0.9% 100 ML IV SCH ×2 (03:39→16:20)
[2017-04-05 04:46] LABS: Basophils # 0.1 10*3/uL (0.0-0.2); Basophils % 0.4 % (0.0-0.8); Eosinophils % 0.3 % (0.00-10.9); Hematocrit 27.5 VOL% (35.7-47.0); Immature Granulocytes % 2.7 %; Immature Granulocytes Absolute 0.38 #; Lymphocytes # 1.7 10*3/uL (1.4-4.0); Lymphocytes % 12.1 % (21.3-54.2); Mean Corpuscular HGB Conc 32.7 GM/DL (32-36); Mean Corpuscular Hemoglobin 31 PG (27-34); Mean Corpuscular Volume 95.8 FL (87-102); Mean Platelet Volume 9.1 FL (9.6-12.0); Monocytes # 0.7 10*3/uL (0.11-0.8); Monocytes % 4.7 % (1.7-12.7); Neutrophils # 11.3 10*3/uL (1.4-7.4); Neutrophils % 79.8 % (38.7-73.9); Platelet Count 486 T/CUMM (130-400); Red Blood Count 2.87 MC/CUMM (3.8-5.5); Red Cell Distribution Width 19.5 % (9.3-17.3); White Blood Count 14.1 T/CUMM (4-12)
[2017-04-05 05:13] LABS: Calcium 6.7 MG/DL (8.5-10.1); Osmolality,Calculated 278.1 MOS/KG (273-304); Potassium 4.2 MMOL/L (3.5-5.1)
[2017-04-05] MEDS: LEVOTHYROXINE 50 MCG TABLET PO SCH (10:12)
[2017-04-05] MEDS: CLORAZEPATE 3.75 MG TABLET PO SCH ×3 (10:12→20:46)
[2017-04-05] MEDS: PANTOPRAZOLE 40 MG TABLET PO SCH (10:12)
[2017-04-05] MEDS: ATORVASTATIN 40 MG TABLET PO SCH (10:32)
[2017-04-05] MEDS ORDERED: FLUCONAZOLE 200 MG TABLET PO SCH (12:00)
[2017-04-05] MEDS: ENOXAPARIN 30 MG/0.3 ML SYRINGE SUBCUT SCH (16:19)
[2017-04-05] MEDS: CIPROFLOXACIN 500 MG TABLET PO SCH ×2 (16:20→20:46)
[2017-04-05] MEDS: LINEZOLID 600 MG TABLET PO SCH ×2 (16:20→20:46)
[2017-04-06] MEDS: MORPHINE 2 MG/1 ML SYRINGE IV PRN ×2 (00:22→17:55)
[2017-04-06] MEDS: PIPERACILLIN/TAZOBACTAM 3,375 MG in SODIUM CHLORIDE 0.9% 100 ML IV SCH ×2 (03:14→16:13)
[2017-04-06] MEDS: SODIUM CHLORIDE 0.9% 1,000 ML IV SCH ×2 (06:37→16:16)
[2017-04-06 06:40] LABS: Basophils % 0.5 % (0.0-0.8); Eosinophils # 0.2 10*3/uL (0.0-0.87); Eosinophils % 2.3 % (0.00-10.9); Hemoglobin 7.7 GM/DL (12.0-16.0); Immature Granulocytes % 2.2 %; Immature Granulocytes Absolute 0.18 #; Lymphocytes # 2.5 10*3/uL (1.4-4.0); Lymphocytes % 30.4 % (21.3-54.2); Mean Corpuscular HGB Conc 32.1 GM/DL (32-36); Mean Corpuscular Hemoglobin 32 PG (27-34); Mean Corpuscular Volume 98.4 FL (87-102); Mean Platelet Volume 9.1 FL (9.6-12.0); Monocytes # 0.5 10*3/uL (0.11-0.8); Monocytes % 6.4 % (1.7-12.7); Neutrophils # 4.7 10*3/uL (1.4-7.4); Neutrophils % 58.2 % (38.7-73.9); Platelet Count 487 T/CUMM (130-400); Red Blood Count 2.44 MC/CUMM (3.8-5.5); Red Cell Distribution Width 19.8 % (9.3-17.3); White Blood Count 8.2 T/CUMM (4-12)
[2017-04-06 07:08] LABS: Calcium 6.8 MG/DL (8.5-10.1); Osmolality,Calculated 279.7 MOS/KG (273-304); Potassium 3.7 MMOL/L (3.5-5.1)
[2017-04-06 07:15] LABS: Magnesium 1.3 MG/DL (1.8-2.4); Phosphorous 3.3 MG/DL (2.5-4.9); Prealbumin 22.6 MG/DL (20-40)
[2017-04-06] MEDS: ATORVASTATIN 40 MG TABLET PO SCH (09:24)
[2017-04-06] MEDS: LINEZOLID 600 MG TABLET PO SCH ×2 (09:24→22:15)
[2017-04-06] MEDS: PANTOPRAZOLE 40 MG TABLET PO SCH (09:24)
[2017-04-06] MEDS: CIPROFLOXACIN 500 MG TABLET PO SCH ×2 (09:24→22:14)
[2017-04-06] MEDS: LEVOTHYROXINE 50 MCG TABLET PO SCH (09:25)
[2017-04-06] MEDS: CLORAZEPATE 3.75 MG TABLET PO SCH ×3 (09:25→22:14)
[2017-04-06] MEDS: ENOXAPARIN 40 MG/0.4 ML SYRINGE SUBCUT SCH (16:13)
[2017-04-06] MEDS: TEMAZEPAM 15 MG CAPSULE PO PRN (22:15)
[2017-04-07] MEDS: PIPERACILLIN/TAZOBACTAM 3,375 MG in SODIUM CHLORIDE 0.9% 100 ML IV SCH ×3 (03:51→20:41)
[2017-04-07] MEDS: SODIUM CHLORIDE 0.9% 1,000 ML IV SCH ×2 (04:01→10:11)
[2017-04-07] MEDS: MORPHINE 2 MG/1 ML SYRINGE IV PRN ×2 (06:37→12:16)
[2017-04-07 06:47] LABS: Basophils % 0.4 % (0.0-0.8); Eosinophils # 0.2 10*3/uL (0.0-0.87); Eosinophils % 2.9 % (0.00-10.9); Hematocrit 25.1 VOL% (35.7-47.0); Hemoglobin 8.1 GM/DL (12.0-16.0); Immature Granulocytes % 2.1 %; Immature Granulocytes Absolute 0.15 #; Lymphocytes # 2.7 10*3/uL (1.4-4.0); Lymphocytes % 36.5 % (21.3-54.2); Mean Corpuscular HGB Conc 32.3 GM/DL (32-36); Mean Corpuscular Hemoglobin 32 PG (27-34); Mean Corpuscular Volume 97.7 FL (87-102); Mean Platelet Volume 8.8 FL (9.6-12.0); Monocytes # 0.5 10*3/uL (0.11-0.8); Monocytes % 7.4 % (1.7-12.7); Neutrophils # 3.7 10*3/uL (1.4-7.4); Neutrophils % 50.7 % (38.7-73.9); Platelet Count 405 T/CUMM (130-400); Red Blood Count 2.57 MC/CUMM (3.8-5.5); Red Cell Distribution Width 19.9 % (9.3-17.3); White Blood Count 7.3 T/CUMM (4-12)
[2017-04-07 07:13] LABS: Calcium 7.2 MG/DL (8.5-10.1); Osmolality,Calculated 279.3 MOS/KG (273-304); Potassium 3.8 MMOL/L (3.5-5.1)
[2017-04-07] MEDS: LEVOTHYROXINE 50 MCG TABLET PO SCH (08:44)
[2017-04-07] MEDS: CLORAZEPATE 3.75 MG TABLET PO SCH ×3 (08:44→20:40)
[2017-04-07] MEDS: PANTOPRAZOLE 40 MG TABLET PO SCH (08:44)
[2017-04-07] MEDS: CIPROFLOXACIN 500 MG TABLET PO SCH ×2 (08:44→20:41)
[2017-04-07] MEDS: ATORVASTATIN 40 MG TABLET PO SCH (08:44)
[2017-04-07] MEDS: LINEZOLID 600 MG TABLET PO SCH ×2 (08:44→20:41)
[2017-04-07] MEDS: ENOXAPARIN 40 MG/0.4 ML SYRINGE SUBCUT SCH (14:39)
[2017-04-07] MEDS: HydrOXYzine PAMOATE 25 MG CAPSULE PO PRN (21:18)
[2017-04-08] MEDS: MORPHINE 2 MG/1 ML SYRINGE IV PRN ×2 (00:23→13:00)
[2017-04-08] MEDS: SODIUM CHLORIDE 0.9% 1,000 ML IV SCH ×3 (00:24→20:37)
[2017-04-08] MEDS: PIPERACILLIN/TAZOBACTAM 3,375 MG in SODIUM CHLORIDE 0.9% 100 ML IV SCH ×2 (03:11→13:03)
[2017-04-08] MEDS: HydrOXYzine PAMOATE 25 MG CAPSULE PO PRN (05:16)
[2017-04-08 08:00] LABS: Phosphorous 3.6 MG/DL (2.5-4.9)
[2017-04-08] MEDS: LEVOTHYROXINE 50 MCG TABLET PO SCH (09:21)
[2017-04-08] MEDS: LINEZOLID 600 MG TABLET PO SCH (09:21)
[2017-04-08] MEDS: CLORAZEPATE 3.75 MG TABLET PO SCH ×3 (09:22→20:38)
[2017-04-08] MEDS: ATORVASTATIN 40 MG TABLET PO SCH (09:22)
[2017-04-08] MEDS: PANTOPRAZOLE 40 MG TABLET PO SCH (09:22)
[2017-04-08] MEDS: CIPROFLOXACIN 500 MG TABLET PO SCH (09:23)
[2017-04-08] MEDS ORDERED: SODIUM CHLORIDE 0.9% 500 ML IV ONE (11:11)
[2017-04-08] MEDS ORDERED: MAGNESIUM SULF RIDER 4 GM in PREMIX 1 EACH IV PRN (14:09)
[2017-04-08] MEDS ORDERED: MAGNESIUM SULF RIDER 2 GM in PREMIX 1 EACH IV PRN (14:09)
[2017-04-08] MEDS: ENOXAPARIN 40 MG/0.4 ML SYRINGE SUBCUT SCH (15:19)
[2017-04-09] MEDS: SODIUM CHLORIDE 0.9% 1,000 ML IV SCH (06:41)
[2017-04-09] MEDS: PANTOPRAZOLE 40 MG TABLET PO SCH (09:36)
[2017-04-09] MEDS: LEVOTHYROXINE 50 MCG TABLET PO SCH (09:36)
[2017-04-09] MEDS: CLORAZEPATE 3.75 MG TABLET PO SCH ×2 (09:36→15:30)
[2017-04-09] MEDS: ATORVASTATIN 40 MG TABLET PO SCH (09:36)
[2017-04-09 11:06] VITALS: BP 99/55
[2017-04-09] MEDS ORDERED: TUBERCULIN SKIN TEST 0.1 ML SYRINGE INTRADERM ONE (12:57)
[2017-04-09] MEDS: ENOXAPARIN 40 MG/0.4 ML SYRINGE SUBCUT SCH (15:30)
== END 2017-04-09 15:30 | disposition home or self-care (01) | DRG 871 ==
LOC: N.ED 10:08 → N.EDINP 13:05 → SUATTDRO 13:05 → N.CC 14:27 → N.3E 04-05 20:19
PROVIDERS: ADMIT Internal Medicine; ATTEND Internal Medicine

== ENCOUNTER 2017-04-18 04:37 | Inpatient (IN) ==
[2017-04-18] MEDS ORDERED: PANTOPRAZOLE 40 MG VIAL IV STA (05:16)
[2017-04-18] MEDS ORDERED: ONDANSETRON 4 MG/2 ML VIAL IV STA (05:16)
[2017-04-18] MEDS ORDERED: SODIUM CHLORIDE 0.9% 500 ML IV STA ×2 (05:16→07:17)
[2017-04-18] MEDS ORDERED: ONDANSETRON 4 MG/2 ML VIAL ONE (06:09)
[2017-04-18] MEDS ORDERED: PANTOPRAZOLE 40 MG VIAL IV ONE (06:09)
[2017-04-18 06:45] LABS: Lactic Acid 6.5 MMOL/L (0.4-2.0)
[2017-04-18 06:47] LABS: Alanine Aminotransferase 52 U/L (13-56); Albumin 2.4 G/DL (3.4-5.0); Alkaline Phosphatase 179 U/L (45-117); Amylase 45 U/L (25-115); Aspartate Amino Transferase 57 U/L (0-37); Bilirubin,Total < 0.39 MG/DL (0.2-1.0); Blood Urea Nitrogen 41 MG/DL (7-18); Calcium 9.1 MG/DL (8.5-10.1); Glucose 157 MG/DL (74-106); Magnesium 1.8 MG/DL (1.8-2.4); Osmolality,Calculated 263.5 MOS/KG (273-304); Potassium 3.8 MMOL/L (3.5-5.1); Sodium 125 MMOL/L (136-145); Total Protein 7.6 G/DL (6.4-8.3); Troponin I Only 0.016 NG/ML (0.00-0.045)
[2017-04-18 07:03] LABS: Basophils # 0.1 10*3/uL (0.0-0.2); Basophils % 0.4 % (0.0-0.8); Eosinophils % 0.1 % (0.00-10.9); Hematocrit 36.4 VOL% (35.7-47.0); Immature Granulocytes Absolute 0.39 #; Lymphocytes # 2.3 10*3/uL (1.4-4.0); Lymphocytes % 11.5 % (21.3-54.2); Mean Corpuscular Hemoglobin 31 PG (27-34); Mean Corpuscular Volume 95.3 FL (87-102); Mean Platelet Volume 9.3 FL (9.6-12.0); Monocytes # 1.3 10*3/uL (0.11-0.8); Monocytes % 6.4 % (1.7-12.7); Neutrophils # 15.8 10*3/uL (1.4-7.4); Neutrophils % 79.6 % (38.7-73.9); Platelet Count 773 T/CUMM (130-400); Red Blood Count 3.82 MC/CUMM (3.8-5.5); Red Cell Distribution Width 16.8 % (9.3-17.3); White Blood Count 19.8 T/CUMM (4-12)
[2017-04-18] MEDS ORDERED: PIPERACILLIN/TAZOBACTAM 3,375 MG in SODIUM CHLORIDE 0.9% 100 ML IV STA (07:17)
[2017-04-18 07:39] LABS: Atypical Lymphocytes Few; Band Neutrophils 19 % (0-10); Giant Platelets Few; Hypochromasia 1+; Lymphocytes 6 % (20-55); Metamyelocytes 1 %; Platelet Estimate Increased; Segmented Neutrophils 67 % (50-85); Total Cells Counted 100
[2017-04-18] MEDS ORDERED: PIPERACILLIN/TAZOBACTAM 3,375 MG VIAL IV ONE (07:55)
[2017-04-18 08:24] LABS: Apearance,Urine CLOUDY (Clear); Bacteria,Urine Many /HPF (Few); Bilirubin,Urine Small mg/dL (Negative); Blood, Urine Large mg/dL (Negative); Glucose,Urine (UA) Negative (Negative); Hyaline Casts,Urine 123 /LPF (0-3); Ketones,Urine Negative (Negative); Mucus,Urine Many /LPF (Occasional); Nitrite,Urine Negative (Negative); Protein,Urine 30 MG/DL; RBC,Urine 123 /HPF (0-4); Urine Color Yellow (Yellow); Urine Specific Gravity 1.023 (1.001-1.035); Urine Urobilinogen < 2.0 EU/DL (0.2-1.0); WBC,Urine 835 /HPF (0-6)
[2017-04-18] MEDS ORDERED: ONDANSETRON 4 MG/2 ML VIAL IV PRN (09:11)
[2017-04-18] MEDS ORDERED: ACETAMINOPHEN 325 MG TABLET PO PRN (09:11)
[2017-04-18] MEDS: MEROPENEM 500 MG in SODIUM CHLORIDE 0.9% 50 ML IV SCH ×2 (10:20→22:24)
[2017-04-18] MEDS: CLORAZEPATE 7.5 MG TABLET PO SCH (21:07)
[2017-04-18] MEDS: CITALOPRAM 40 MG TABLET PO SCH (21:07)
[2017-04-18] MEDS: TEMAZEPAM 15 MG CAPSULE PO PRN (22:27)
[2017-04-19] MEDS ORDERED: ZINC OXIDE PASTE 113 GM TUBE TOP PRN (00:02)
[2017-04-19 06:45] LABS: Basophils # 0.1 10*3/uL (0.0-0.2); Basophils % 0.5 % (0.0-0.8); Eosinophils # 0.2 10*3/uL (0.0-0.87); Eosinophils % 1.5 % (0.00-10.9); Hematocrit 29.2 VOL% (35.7-47.0); Immature Granulocytes % 2.3 %; Immature Granulocytes Absolute 0.27 #; Lymphocytes # 3.1 10*3/uL (1.4-4.0); Lymphocytes % 26.2 % (21.3-54.2); Mean Corpuscular HGB Conc 33.2 GM/DL (32-36); Mean Corpuscular Hemoglobin 32 PG (27-34); Mean Corpuscular Volume 95.1 FL (87-102); Mean Platelet Volume 9.4 FL (9.6-12.0); Monocytes # 0.8 10*3/uL (0.11-0.8); Monocytes % 7.1 % (1.7-12.7); Neutrophils # 7.3 10*3/uL (1.4-7.4); Neutrophils % 62.4 % (38.7-73.9); Red Blood Count 3.07 MC/CUMM (3.8-5.5); Red Cell Distribution Width 16.8 % (9.3-17.3)
[2017-04-19 06:58] LABS: INR 1.1; PT Patient Result 11.4 SECS
[2017-04-19 07:11] LABS: Hemoglobin 9.7 GM/DL (12.0-16.0); Platelet Count 572 T/CUMM (130-400); White Blood Count 11.7 T/CUMM (4-12)
[2017-04-19 07:28] LABS: Albumin 2.2 G/DL (3.4-5.0); Calcium 8.1 MG/DL (8.5-10.1); Osmolality,Calculated 266.8 MOS/KG (273-304); Potassium 3.9 MMOL/L (3.5-5.1); Total Protein 5.7 G/DL (6.4-8.3)
[2017-04-19] MEDS: CLORAZEPATE 7.5 MG TABLET PO SCH ×3 (09:22→22:10)
[2017-04-19] MEDS: ATORVASTATIN 40 MG TABLET PO SCH (09:22)
[2017-04-19] MEDS: LEVOTHYROXINE 50 MCG TABLET PO SCH (09:22)
[2017-04-19] MEDS: MEROPENEM 500 MG in SODIUM CHLORIDE 0.9% 50 ML IV SCH ×2 (09:25→16:42)
[2017-04-19] MEDS ORDERED: INFLUENZA VIRUS VACCINE 0.5 ML SYRINGE IM ONE (09:31)
[2017-04-19] MEDS: CITALOPRAM 40 MG TABLET PO SCH (22:10)
[2017-04-20] MEDS: MEROPENEM 500 MG in SODIUM CHLORIDE 0.9% 50 ML IV SCH ×2 (00:36→08:24)
[2017-04-20] MEDS: LEVOTHYROXINE 50 MCG TABLET PO SCH (08:24)
[2017-04-20] MEDS: CLORAZEPATE 7.5 MG TABLET PO SCH ×3 (08:24→22:00)
[2017-04-20] MEDS: ATORVASTATIN 40 MG TABLET PO SCH (08:24)
[2017-04-20] MEDS: MULTIVITAMIN LIQUID (CENTRUM) 60 ML BOTTLE PER TUBE SCH (08:24)
[2017-04-20 08:36] LABS: Calcium 8.3 MG/DL (8.5-10.1); Magnesium 1.8 MG/DL (1.8-2.4); Osmolality,Calculated 265.7 MOS/KG (273-304); Phosphorous 3.9 MG/DL (2.5-4.9); Potassium 3.3 MMOL/L (3.5-5.1); Prealbumin 18.5 MG/DL (20-40)
[2017-04-20] MEDS ORDERED: DEXTROSE 50% 25 GM/50 ML VIAL IV PRN (09:55)
[2017-04-20] MEDS ORDERED: GLUCAGON 1 MG VIAL IM PRN (09:55)
[2017-04-20] MEDS ORDERED: HYDROCORTISONE 2.5% RECTAL CREAM 30 GM TUBE TOP PRN (15:00)
[2017-04-20] MEDS: FLUCONAZOLE INJ 150 MG in IV BAG 1 EACH IV SCH (15:52)
[2017-04-20] MEDS: PROMETHAZINE 25 MG TABLET PO PRN (22:00)
[2017-04-20] MEDS: CITALOPRAM 40 MG TABLET PO SCH (22:00)
[2017-04-20] MEDS: MORPHINE 2 MG/1 ML SYRINGE IV PRN (23:31)
[2017-04-21] MEDS: MORPHINE 2 MG/1 ML SYRINGE IV PRN (06:17)
[2017-04-21] MEDS: LEVOTHYROXINE 50 MCG TABLET PO SCH (09:42)
[2017-04-21] MEDS: ATORVASTATIN 40 MG TABLET PO SCH (09:42)
[2017-04-21] MEDS: CLORAZEPATE 7.5 MG TABLET PO SCH ×3 (09:42→22:39)
[2017-04-21] MEDS: MULTIVITAMIN LIQUID (CENTRUM) 60 ML BOTTLE PER TUBE SCH (09:42)
[2017-04-21] MEDS: POTASSIUM CHLORIDE 20 MEQ TABLET PO PRN ×3 (12:58→16:17)
[2017-04-21] MEDS: FLUCONAZOLE INJ 150 MG in IV BAG 1 EACH IV SCH (14:10)
[2017-04-21] MEDS: TEMAZEPAM 15 MG CAPSULE PO PRN (22:39)
[2017-04-21] MEDS: CITALOPRAM 40 MG TABLET PO SCH (22:39)
[2017-04-22 06:28] LABS: Basophils # 0.1 10*3/uL (0.0-0.2); Eosinophils # 0.7 10*3/uL (0.0-0.87); Eosinophils % 5.3 % (0.00-10.9); Hematocrit 30.8 VOL% (35.7-47.0); Hemoglobin 10.2 GM/DL (12.0-16.0); Immature Granulocytes % 7.1 %; Immature Granulocytes Absolute 0.99 #; Lymphocytes # 4.8 10*3/uL (1.4-4.0); Lymphocytes % 34.6 % (21.3-54.2); Mean Corpuscular HGB Conc 33.1 GM/DL (32-36); Mean Corpuscular Hemoglobin 32 PG (27-34); Mean Corpuscular Volume 96.3 FL (87-102); Mean Platelet Volume 9.2 FL (9.6-12.0); Monocytes # 0.8 10*3/uL (0.11-0.8); Monocytes % 5.9 % (1.7-12.7); NRBC # 0.02 10*3/uL; Neutrophils # 6.4 10*3/uL (1.4-7.4); Neutrophils % 46.1 % (38.7-73.9); Platelet Count 520 T/CUMM (130-400); Red Cell Distribution Width 16.7 % (9.3-17.3); White Blood Count 13.9 T/CUMM (4-12)
[2017-04-22 06:51] LABS: Band Neutrophils 7 % (0-10); Eosinophils 3 % (0-10); Hypochromasia 1+; Lymphocytes 41 % (20-55); Ovalocytes Slight; Platelet Estimate Increased; Segmented Neutrophils 39 % (50-85); Total Cells Counted 100
[2017-04-22 06:52] LABS: Giant Platelets Few
[2017-04-22 07:01] LABS: Calcium 8.4 MG/DL (8.5-10.1); Magnesium 1.8 MG/DL (1.8-2.4); Osmolality,Calculated 263.8 MOS/KG (273-304); Potassium 5.1 MMOL/L (3.5-5.1)
[2017-04-22 07:05] LABS: Phosphorous 3.3 MG/DL (2.5-4.9); Prealbumin 23.5 MG/DL (20-40)
[2017-04-22] MEDS: ATORVASTATIN 40 MG TABLET PO SCH (09:24)
[2017-04-22] MEDS: MULTIVITAMIN LIQUID (CENTRUM) 60 ML BOTTLE PER TUBE SCH (09:25)
[2017-04-22] MEDS: LEVOTHYROXINE 50 MCG TABLET PO SCH (09:25)
[2017-04-22] MEDS: CLORAZEPATE 7.5 MG TABLET PO SCH ×2 (09:26→15:19)
[2017-04-22] MEDS: FLUCONAZOLE INJ 150 MG in IV BAG 1 EACH IV SCH (15:18)
[2017-04-22] MEDS: CLORAZEPATE 3.75 MG TABLET PO SCH ×2 (15:24→21:38)
[2017-04-22] MEDS: CITALOPRAM 40 MG TABLET PO SCH (21:38)
[2017-04-23] MEDS: TEMAZEPAM 15 MG CAPSULE PO PRN (00:12)
[2017-04-23] MEDS: CLORAZEPATE 3.75 MG TABLET PO SCH ×3 (09:44→20:39)
[2017-04-23] MEDS: MULTIVITAMIN LIQUID (CENTRUM) 60 ML BOTTLE PER TUBE SCH (09:44)
[2017-04-23] MEDS: LEVOTHYROXINE 50 MCG TABLET PO SCH (09:44)
[2017-04-23] MEDS: ATORVASTATIN 40 MG TABLET PO SCH (09:44)
[2017-04-23] MEDS: FLUCONAZOLE INJ 150 MG in IV BAG 1 EACH IV SCH (15:14)
[2017-04-23] MEDS: MORPHINE 2 MG/1 ML SYRINGE IV PRN (15:14)
[2017-04-23] MEDS: ceFAZolin 1,000 MG in SYRINGE 1 EACH IV SCH ×2 (15:15→22:25)
[2017-04-23] MEDS: SODIUM CHLORIDE 0.9% 1,000 ML IV SCH (17:08)
[2017-04-23] MEDS: ENOXAPARIN 40 MG/0.4 ML SYRINGE SUBCUT SCH (18:41)
[2017-04-23] MEDS: CITALOPRAM 40 MG TABLET PO SCH (20:39)
[2017-04-24] MEDS: MORPHINE 2 MG/1 ML SYRINGE IV PRN ×3 (00:07→18:12)
[2017-04-24] MEDS: ceFAZolin 1,000 MG in SYRINGE 1 EACH IV SCH ×3 (05:13→21:30)
[2017-04-24] MEDS ORDERED: HYDROCORTISONE 0.5% CREAM 28.35 GM TUBE TOP PRN (08:22)
[2017-04-24] MEDS: LEVOTHYROXINE 50 MCG TABLET PO SCH (11:15)
[2017-04-24] MEDS: CLORAZEPATE 3.75 MG TABLET PO SCH ×3 (11:15→21:34)
[2017-04-24] MEDS: SODIUM CHLORIDE 0.9% 1,000 ML IV SCH (11:16)
[2017-04-24] MEDS: ATORVASTATIN 40 MG TABLET PO SCH (11:16)
[2017-04-24] MEDS: MULTIVITAMIN LIQUID (CENTRUM) 60 ML BOTTLE PER TUBE SCH (11:16)
[2017-04-24] MEDS: FLUCONAZOLE INJ 150 MG in IV BAG 1 EACH IV SCH (16:10)
[2017-04-24] MEDS: ENOXAPARIN 40 MG/0.4 ML SYRINGE SUBCUT SCH (18:12)
[2017-04-24] MEDS: CITALOPRAM 40 MG TABLET PO SCH (21:34)
[2017-04-25] MEDS: TEMAZEPAM 15 MG CAPSULE PO PRN ×2 (00:14→21:58)
[2017-04-25] MEDS: ceFAZolin 1,000 MG in SYRINGE 1 EACH IV SCH ×3 (06:16→21:56)
[2017-04-25 06:31] LABS: Basophils # 0.1 10*3/uL (0.0-0.2); Basophils % 0.6 % (0.0-0.8); Eosinophils # 0.5 10*3/uL (0.0-0.87); Hematocrit 25.6 VOL% (35.7-47.0); Hemoglobin 8.3 GM/DL (12.0-16.0); Immature Granulocytes % 4.7 %; Lymphocytes # 3.5 10*3/uL (1.4-4.0); Lymphocytes % 27.4 % (21.3-54.2); Mean Corpuscular HGB Conc 32.4 GM/DL (32-36); Mean Corpuscular Hemoglobin 32 PG (27-34); Mean Corpuscular Volume 98.8 FL (87-102); Mean Platelet Volume 9.2 FL (9.6-12.0); Monocytes # 0.7 10*3/uL (0.11-0.8); Monocytes % 5.7 % (1.7-12.7); Neutrophils # 7.4 10*3/uL (1.4-7.4); Neutrophils % 57.6 % (38.7-73.9); Platelet Count 395 T/CUMM (130-400); Red Blood Count 2.59 MC/CUMM (3.8-5.5); Red Cell Distribution Width 17.1 % (9.3-17.3); White Blood Count 12.9 T/CUMM (4-12)
[2017-04-25 06:58] LABS: Band Neutrophils 2 % (0-10); Eosinophils 3 % (0-10); Hypochromasia 1+; Lymphocytes 26 % (20-55); Metamyelocytes 1 %; Myelocytes 1 %; Segmented Neutrophils 60 % (50-85); Total Cells Counted 100
[2017-04-25 06:59] LABS: Macrocytosis 1+
[2017-04-25 07:09] LABS: Magnesium 1.7 MG/DL (1.8-2.4); Potassium 4.1 MMOL/L (3.5-5.1)
[2017-04-25 09:10] LABS: Basophils # 0.1 10*3/uL (0.0-0.2); Basophils % 0.5 % (0.0-0.8); Eosinophils # 0.5 10*3/uL (0.0-0.87); Eosinophils % 3.7 % (0.00-10.9); Hemoglobin 8.6 GM/DL (12.0-16.0); Immature Granulocytes % 3.9 %; Immature Granulocytes Absolute 0.51 #; Lymphocytes # 3.1 10*3/uL (1.4-4.0); Lymphocytes % 24.2 % (21.3-54.2); Mean Corpuscular HGB Conc 33.1 GM/DL (32-36); Mean Corpuscular Hemoglobin 33 PG (27-34); Mean Corpuscular Volume 98.9 FL (87-102); Mean Platelet Volume 9.1 FL (9.6-12.0); Monocytes # 0.7 10*3/uL (0.11-0.8); Monocytes % 5.4 % (1.7-12.7); Neutrophils # 8.1 10*3/uL (1.4-7.4); Neutrophils % 62.3 % (38.7-73.9); Platelet Count 364 T/CUMM (130-400); Red Blood Count 2.63 MC/CUMM (3.8-5.5); Red Cell Distribution Width 17.2 % (9.3-17.3)
[2017-04-25] MEDS: ATORVASTATIN 40 MG TABLET PO SCH (09:45)
[2017-04-25] MEDS: LEVOTHYROXINE 50 MCG TABLET PO SCH (09:45)
[2017-04-25] MEDS: MULTIVITAMIN LIQUID (CENTRUM) 60 ML BOTTLE PER TUBE SCH (09:45)
[2017-04-25] MEDS: CLORAZEPATE 3.75 MG TABLET PO SCH ×3 (09:45→21:54)
[2017-04-25 10:06] LABS: Band Neutrophils 3 % (0-10); Eosinophils 4 % (0-10); Hypochromasia 1+; Lymphocytes 25 % (20-55); Metamyelocytes 1 %; Nucleated Red Blood Cells 1 (0-5); Segmented Neutrophils 63 % (50-85); Total Cells Counted 100
[2017-04-25 10:07] LABS: Macrocytosis 1+
[2017-04-25 10:08] LABS: Platelet Estimate Normal; Polychromasia Slight
[2017-04-25] MEDS ORDERED: MAGNESIUM SULF RIDER 2 GM in PREMIX 1 EACH IV ONE (13:09)
[2017-04-25] MEDS: MORPHINE 2 MG/1 ML SYRINGE IV PRN ×2 (13:28→18:11)
[2017-04-25] MEDS: FLUCONAZOLE INJ 150 MG in IV BAG 1 EACH IV SCH (15:45)
[2017-04-25] MEDS: ENOXAPARIN 40 MG/0.4 ML SYRINGE SUBCUT SCH (16:32)
[2017-04-25] MEDS: CITALOPRAM 40 MG TABLET PO SCH (21:54)
[2017-04-26] MEDS: ceFAZolin 1,000 MG in SYRINGE 1 EACH IV SCH (05:19)
[2017-04-26 06:24] LABS: Calcium 7.7 MG/DL (8.5-10.1); Magnesium 1.9 MG/DL (1.8-2.4); Osmolality,Calculated 273.8 MOS/KG (273-304); Phosphorous 3.9 MG/DL (2.5-4.9); Potassium 3.9 MMOL/L (3.5-5.1); Prealbumin 18.7 MG/DL (20-40)
[2017-04-26] MEDS: MULTIVITAMIN LIQUID (CENTRUM) 60 ML BOTTLE PER TUBE SCH (09:25)
[2017-04-26] MEDS: LEVOTHYROXINE 50 MCG TABLET PO SCH (09:25)
[2017-04-26] MEDS: CLORAZEPATE 3.75 MG TABLET PO SCH ×3 (09:25→20:19)
[2017-04-26] MEDS: ATORVASTATIN 40 MG TABLET PO SCH (09:25)
[2017-04-26] MEDS: cefTRIAXone 1,000 MG in SYRINGE 1 EACH IV SCH (14:00)
[2017-04-26] MEDS: FLUCONAZOLE INJ 150 MG in IV BAG 1 EACH IV SCH (14:03)
[2017-04-26] MEDS: ENOXAPARIN 40 MG/0.4 ML SYRINGE SUBCUT SCH (17:38)
[2017-04-26] MEDS: CITALOPRAM 40 MG TABLET PO SCH (20:19)
[2017-04-27] MEDS: LEVOTHYROXINE 50 MCG TABLET PO SCH (09:40)
[2017-04-27] MEDS: ATORVASTATIN 40 MG TABLET PO SCH (09:40)
[2017-04-27] MEDS: CLORAZEPATE 3.75 MG TABLET PO SCH ×3 (09:40→21:00)
[2017-04-27] MEDS: MULTIVITAMIN LIQUID (CENTRUM) 60 ML BOTTLE PER TUBE SCH (09:40)
[2017-04-27] MEDS: cefTRIAXone 1,000 MG in SYRINGE 1 EACH IV SCH (12:50)
[2017-04-27] MEDS: FLUCONAZOLE INJ 150 MG in IV BAG 1 EACH IV SCH (14:20)
[2017-04-27] MEDS: ENOXAPARIN 40 MG/0.4 ML SYRINGE SUBCUT SCH (15:40)
[2017-04-27] MEDS ORDERED: TEMAZEPAM 15 MG CAPSULE PO PRN (20:00)
[2017-04-27] MEDS: CITALOPRAM 40 MG TABLET PO SCH (21:00)
[2017-04-28] MEDS: PROMETHAZINE 25 MG TABLET PO PRN (02:02)
[2017-04-28] MEDS: CLORAZEPATE 3.75 MG TABLET PO SCH (09:02)
[2017-04-28] MEDS: MULTIVITAMIN LIQUID (CENTRUM) 60 ML BOTTLE PER TUBE SCH (09:02)
[2017-04-28] MEDS: ATORVASTATIN 40 MG TABLET PO SCH (09:02)
[2017-04-28] MEDS: LEVOTHYROXINE 50 MCG TABLET PO SCH (09:02)
[2017-04-28 12:38] VITALS: BP 103/50
[2017-04-28] MEDS: cefTRIAXone 1,000 MG in SYRINGE 1 EACH IV SCH (14:03)
== END 2017-04-28 14:20 | DRG 872 ==
LOC: N.ED 04:37 → N.EDINP 07:30 → SUATTDRO 07:30 → N.ICU 08:47 → N.5E 12:40
PROVIDERS: ADMIT Internal Medicine; ATTEND Surgery

== ENCOUNTER 2017-07-19 09:38 | Inpatient (IN) ==
[2017-07-19] MEDS ORDERED: ONDANSETRON 4 MG/2 ML VIAL IV STA (12:17)
[2017-07-19] MEDS ORDERED: cefTRIAXone 1,000 MG in SODIUM CHLORIDE 0.9% 100 ML IV STA (12:17)
[2017-07-19] MEDS ORDERED: methylPREDNISolone SOD SUC 125 MG/2 ML VIAL IV STA (12:17)
[2017-07-19 12:26] LABS: Basophils % 0.1 % (0.0-0.8); Eosinophils # 0.1 10*3/uL (0.0-0.87); Eosinophils % 0.4 % (0.00-10.9); Hematocrit 36.7 VOL% (35.7-47.0); Hemoglobin 11.3 GM/DL (12.0-16.0); Immature Granulocytes % 2.4 %; Immature Granulocytes Absolute 0.34 #; Lymphocytes # 2.5 10*3/uL (1.4-4.0); Lymphocytes % 17.1 % (21.3-54.2); Mean Corpuscular HGB Conc 30.8 GM/DL (32-36); Mean Corpuscular Hemoglobin 28 PG (27-34); Mean Corpuscular Volume 91.5 FL (87-102); Mean Platelet Volume 9.4 FL (9.6-12.0); Neutrophils # 10.5 10*3/uL (1.4-7.4); Platelet Count 354 T/CUMM (130-400); Red Blood Count 4.01 MC/CUMM (3.8-5.5); Red Cell Distribution Width 15.7 % (9.3-17.3); White Blood Count 14.4 T/CUMM (4-12)
[2017-07-19] MEDS ORDERED: ALBUTEROL NEB SOLN 5 MG/ML 20 ML/BOTTLE RESP TX SCH (12:30)
[2017-07-19 12:33] LABS: PT Patient Result 10.1 SECS
[2017-07-19] MEDS ORDERED: cefTRIAXone 1,000 MG VIAL ONE (12:38)
[2017-07-19] MEDS ORDERED: ONDANSETRON 4 MG/2 ML VIAL ONE (12:39)
[2017-07-19] MEDS ORDERED: methylPREDNISolone SOD SUC 125 MG/2 ML VIAL ONE (12:39)
[2017-07-19 12:43] LABS: Alanine Aminotransferase 15 U/L (13-56); Albumin 2.9 G/DL (3.4-5.0); Alkaline Phosphatase 113 U/L (45-117); Aspartate Amino Transferase 10 U/L (0-37); Blood Urea Nitrogen 17 MG/DL (7-18); Calcium 8.6 MG/DL (8.5-10.1); Glucose 89 MG/DL (74-106); Osmolality,Calculated 281.3 MOS/KG (273-304); Potassium 2.6 MMOL/L (3.5-5.1); Sodium 141 MMOL/L (136-145); Total Protein 7.1 G/DL (6.4-8.3); Troponin I Only < 0.015 NG/ML (0.00-0.045)
[2017-07-19 13:49] LABS: Apearance,Urine CLEAR (Clear); Bilirubin,Urine Negative (Negative); Blood, Urine Negative (Negative); Glucose,Urine (UA) Negative (Negative); Ketones,Urine Negative (Negative); Nitrite,Urine Negative (Negative); Protein,Urine Negative; RBC,Urine 1 /HPF (0-4); Squamous Epithelial Cell,Urine Occasional /HPF (0-10); Urine Color Yellow (Yellow); Urine Urobilinogen < 2.0 EU/DL (0.2-1.0)
[2017-07-19] MEDS ORDERED: POTASSIUM CHLORIDE 20 MEQ TABLET PO STA (14:50)
[2017-07-19] MEDS ORDERED: POTASSIUM CHLORIDE 20 MEQ TABLET PO ONE (15:04)
[2017-07-19] MEDS ORDERED: ONDANSETRON 4 MG/2 ML VIAL IV PRN (16:30)
[2017-07-19] MEDS ORDERED: GLUCAGON 1 MG VIAL IM PRN (16:30)
[2017-07-19] MEDS ORDERED: DEXTROSE 50% 25 GM/50 ML VIAL IV PRN (16:30)
[2017-07-19] MEDS ORDERED: ACETAMINOPHEN 325 MG TABLET PO PRN (16:30)
[2017-07-19] MEDS ORDERED: guaiFENesin/DM ER 600-30 MG TABLET PO PRN (16:30)
[2017-07-19] MEDS: INSULIN LISPRO 100 UNIT/ML SUBCUT SCH ×2 (17:11→22:31)
[2017-07-19] MEDS: LEVOFLOXACIN 500 MG TABLET PO SCH (17:36)
[2017-07-19] MEDS: POTASSIUM CHLORIDE 20 MEQ TABLET PO SCH (17:36)
[2017-07-19] MEDS: ALBUTEROL/IPRATROPIUM 3 ML NEB RESP TX SCH (20:15)
[2017-07-19] MEDS: DORNASE ALFA 2.5 MG/2.5 ML VIAL RESP TX SCH (20:16)
[2017-07-19] MEDS ORDERED: CITALOPRAM 40 MG TABLET PO SCH (21:00)
[2017-07-19] MEDS ORDERED: ENOXAPARIN 40 MG/0.4 ML SYRINGE SUBCUT SCH (21:00)
[2017-07-19] MEDS: MONTELUKAST 10 MG TABLET PO SCH (22:30)
[2017-07-19] MEDS: CLORAZEPATE 3.75 MG TABLET PO SCH (22:30)
[2017-07-20] MEDS: methylPREDNISolone SOD SUC 40 MG/1 ML VIAL IV SCH ×2 (00:07→10:22)
[2017-07-20] MEDS: POTASSIUM CHLORIDE 20 MEQ TABLET PO SCH (00:08)
[2017-07-20] MEDS: ALBUTEROL/IPRATROPIUM 3 ML NEB RESP TX SCH ×4 (00:33→11:49)
[2017-07-20 06:23] LABS: Basophils % 0.1 % (0.0-0.8); Hemoglobin 9.8 GM/DL (12.0-16.0); Immature Granulocytes % 2.5 %; Immature Granulocytes Absolute 0.18 #; Lymphocytes # 0.6 10*3/uL (1.4-4.0); Lymphocytes % 7.9 % (21.3-54.2); Mean Corpuscular HGB Conc 31.6 GM/DL (32-36); Mean Corpuscular Hemoglobin 29 PG (27-34); Mean Corpuscular Volume 90.4 FL (87-102); Mean Platelet Volume 9.6 FL (9.6-12.0); Monocytes # 0.2 10*3/uL (0.11-0.8); Monocytes % 2.3 % (1.7-12.7); Neutrophils # 6.4 10*3/uL (1.4-7.4); Neutrophils % 87.2 % (38.7-73.9); Platelet Count 281 T/CUMM (130-400); Red Blood Count 3.43 MC/CUMM (3.8-5.5); Red Cell Distribution Width 15.9 % (9.3-17.3); White Blood Count 7.3 T/CUMM (4-12)
[2017-07-20 06:56] LABS: Calcium 8.4 MG/DL (8.5-10.1); Osmolality,Calculated 290.1 MOS/KG (273-304); Potassium 4.8 MMOL/L (3.5-5.1)
[2017-07-20] MEDS ORDERED: LEVOTHYROXINE 50 MCG TABLET PO SCH (07:00)
[2017-07-20] MEDS: DORNASE ALFA 2.5 MG/2.5 ML VIAL RESP TX SCH (08:17)
[2017-07-20] MEDS: INSULIN LISPRO 100 UNIT/ML SUBCUT SCH ×2 (08:49→12:03)
[2017-07-20] MEDS: LEVOFLOXACIN 500 MG TABLET PO SCH (08:50)
[2017-07-20] MEDS: MONTELUKAST 10 MG TABLET PO SCH (08:50)
[2017-07-20] MEDS: CLORAZEPATE 3.75 MG TABLET PO SCH (08:50)
[2017-07-20] MEDS ORDERED: BISOPROLOL/HCTZ 2.5-6.25 MG TABLET PO SCH (09:00)
[2017-07-20] MEDS ORDERED: ATORVASTATIN 40 MG TABLET PO SCH (09:00)
[2017-07-20 11:53] VITALS: BP 128/68
== END 2017-07-20 15:00 | disposition home health service (06) | DRG 192 ==
LOC: N.ED 09:38 → N.EDINP 15:43 → N.5E 16:52
PROVIDERS: ADMIT Internal Medicine; ATTEND Internal Medicine